=== PATIENT | female | born 1990 | race Native Hawaiian/Other Pacific Islander ===

== ENCOUNTER 2020-07-02 13:39 | Outpatient (REF) | payer OTHER, SELFPAY ==
--- NOTE | 2020-07-02 13:53 | MR_ITS ---
EXAMINATION: MR BRAIN WITHOUT AND WITH CONTRAST CLINICAL INFORMATION: Elevated prolactin level. Bilateral galactorrhea. Concern for pituitary adenoma. COMPARISON: None available. TECHNIQUE: MRI of the brain was obtained using routine sequences without and with contrast following the administration of 4 mL of Gadavist intravenous contrast. FINDINGS: No focal restricted diffusion is demonstrated to suggest acute or subacute cerebral ischemia. Nonspecific curvilinear region of T2 FLAIR hyperintensity lateral to the occipital horn of the left lateral ventricle. Few additional punctate foci of T2 FLAIR hyperintensity in the left greater than right frontal lobes lobes. The ventricles are normal in morphology and size. No abnormal mass effect. No midline shift. There is a T2 hyperintense and T1 hypointense lesion that extends the pituitary parenchyma in the left aspect of the sella turcica, measuring 1 x 0.8 x 0.8 cm. There suggestion of the thin peripheral rim of enhancement surrounding this lesion. No internal enhancement demonstrated. The lesion abuts less than 50% of the medial wall of the cavernous segment and undersurface of the supraclinoid segment of the left ICA. No change in ICA caliber are demonstrated. No evidence of direct cavernous sinus invasion. The remaining pituitary parenchyma demonstrates normal signal characteristics. Normal posterior pituitary bright spot. The pituitary infundibulum is normal in morphology and minimally deviated to the right. The suprasellar cistern largely remains largely patent at this time. No mass effect on the optic chiasm. No abnormalities of the posterior fossa with normal appearance of the brainstem and cerebellum. The cerebellar tonsils are normally positioned. Normal arterial and venous vascular flow voids are present. No abnormal contrast enhancement. Normal, homogeneous marrow signal. Nonspecific retropharyngeal lymph nodes, measuring up to 1.3 x 0.8 cm on the right. Moderate mucosal thickening of the paranasal sinuses. No signal abnormalities within the mastoids. IMPRESSION: 1. There is a 1 cm cystic lesion within the left aspect of the pituitary fossa. Apparent thin peripheral rim of enhancement without nodular enhancing focus. Given the patient's history, a cystic macroadenoma is a leading consideration. 2. Nonspecific, nonenhancing T2 FLAIR hyperintensity along the lateral margin of the temporal horn of the left lateral ventricle. Otherwise, minimal additional white matter changes. Close attention on follow-up exams is recommended. 3. Moderate mucosal sinonasal disease. Nonspecific mildly prominent retropharyngeal lymph nodes.
== END 2020-07-02 13:40 | disposition home or self-care (01) ==
LOC: HO.MRI 13:39
PROVIDERS: Visit Provider Internal Medicine
DX: E22.1 Hyperprolactinemia (principal)
CPT/HCPCS: 70553

== ENCOUNTER → 2020-12-09 09:22 | Outpatient (BNVA) | payer OTHER, SELFPAY | PROVIDERS: PCP Physician Assistant; Referring Provider Internal Medicine; Visit Provider Internal Medicine Endocrinology, Diabetes & Metabolism | DX: D35.2 Benign neoplasm of pituitary gland (principal); E22.1 Hyperprolactinemia | CPT/HCPCS: 99202 ==

== ENCOUNTER 2020-12-10 07:56 | Outpatient (REF) | payer OTHER, SELFPAY ==
[2020-12-10 08:58] LABS: Anion Gap 12 (12-20); Blood Urea Nitrogen 12 mg/dL (9-16); Carbon Dioxide 26 mmol/L (22-29); Chloride 104 mmol/L (96-108); Estimated Glomerular Filt Rate > 60; Glucose Fasting 81 mg/dL (60-99); Potassium 4.2 mmol/L (3.3-5.1); Sodium 138 mmol/L (135-145)
[2020-12-10 09:19] LABS: Free T4 (Free Thyroxine) 0.86 ng/dL (0.71-1.85); Thyroid Stimulating Hormone 1.33 uIU/mL (0.32-4.0)
[2020-12-11 05:17] LABS: Triiodothyronine T3 Total 101 ng/dL (76-181)
[2020-12-11 08:57] LABS: Sex Hormone Binding Globulin 42 nmol/L (17-124)
[2020-12-11 12:57] LABS: Follicle Stimulating Hormone 7.4 mIU/mL; Prolactin Undiluted 36.2 ng/mL
[2020-12-11 17:01] LABS: Adrenocorticotropic Hormone 14 pg/mL (6-50)
[2020-12-13 16:51] LABS: IGF-1 (Somatomedin C) 164 ng/mL (63-373); IGF-1 Z Score (Female) 0.1 SD (-2.0 - +2.0)
[2020-12-17 17:06] LABS: Estradiol Free 0.83 pg/mL; Estradiol, Ultrasensitive 43 pg/mL
== END 2020-12-10 07:57 | disposition home or self-care (01) ==
LOC: HO.LAB 07:56
PROVIDERS: PCP Physician Assistant; Visit Provider Internal Medicine Endocrinology, Diabetes & Metabolism
DX: D35.2 Benign neoplasm of pituitary gland (principal)
CPT/HCPCS: 36415; 80048; 82024; 82533; 82670; 82681; 83001; 83002; 84146; 84270; 84305; 84439; 84443; 84480

== ENCOUNTER → 2020-12-21 12:19 | Outpatient (BNVA) | payer OTHER, SELFPAY | PROVIDERS: PCP Physician Assistant; Visit Provider Internal Medicine | DX: D35.2 Benign neoplasm of pituitary gland (principal); O90.3 Peripartum cardiomyopathy; I47.1 Supraventricular tachycardia | CPT/HCPCS: 93005; 99202 ==

== ENCOUNTER 2020-12-29 07:58 | Outpatient (REF) | payer OTHER, SELFPAY ==
[2020-12-30 09:31] LABS: DHEA Sulfate 297 mcg/dL (18-391)
[2020-12-31 15:37] LABS: Adrenocorticotropic Hormone 17 pg/mL (6-50)
== END 2020-12-29 07:59 | disposition home or self-care (01) ==
LOC: HO.LAB 07:58
PROVIDERS: PCP Physician Assistant; Visit Provider Internal Medicine Endocrinology, Diabetes & Metabolism
DX: D35.2 Benign neoplasm of pituitary gland (principal)
CPT/HCPCS: 36415; 82024; 82533; 82627

== ENCOUNTER → 2021-01-29 08:26 | Outpatient (REF) | payer OTHER, SELFPAY ==
--- NOTE | 2021-01-29 08:29 | CA_ITS ---
Transthoracic Echocardiogram Patient (Last, First, Middle): Annika Merlos, Gender: Female Date of : 1990 Age: 30 Procedure Date: 01/29/2021 Procedure Type: Transthoracic Echocardiogram Location: OP Height: 160.02 cm Weight: 74.84 kg BSA: 1.78 m2 Heart Rate: bpm BP: 116 / 78 mmHg Band Manager: Rafaela MD: Mayco Santos MD Cut Off Man: Manuel Cotton MD Symptoms: D35.2 - Benign neoplasm of pituitary gland Study Quality: Fair ECG Rhythm: Sinus Conclusions: - Essentially normal study Findings Left Ventricle Normal left ventricular size, thickness, and systolic function. The visually estimated ejection fraction is between 65-70%. Diastolic function is normal for age. peak LV global endocardial strain at -18.4% which is within normal limits Right Ventricle Normal right ventricular cavity size and systolic function. Atria Both atria are normal in size. There is no evidence of interatrial shunt. Aortic Valve The aortic valve structure and function is likely normal. There is no aortic valve stenosis. There is no aortic valve regurgitation. Mitral Valve Normal mitral valve structure and function. There is no mitral valve regurgitation. There is no mitral valve stenosis. Pulmonic Valve The pulmonic valve is likely normal. Tricuspid Valve There is trace tricuspid valve regurgitation. The right ventricular systolic pressure is normal. The right ventricular systolic pressure is 24 mmHg. Normal right atrial pressure. There is no evidence of pulmonary hypertension. Great Vessels All visible segments of the aorta are normal in size. The pulmonary artery was not well visualized. Venous The inferior vena cava is normal in size and collapses greater than 50% with inspiration. Pericardium/Pleural There is no evidence of pericardial effusion. Prior Study Comparison No change compared to prior study dated: 08/23/2017. Measurements 2D Linear Measurements RVIDd: 3.00 RVIDd Index: 1.69 IVSd: 0.77 0.6-0.9/0.6-1.0 cm LVIDd: 4.89 3.9-5.3/4.2-5.9 cm LVIDd Index: 2.75 2.4-3.2/2.2-3.1 cm/m2 LVIDs: 3.35 2.0-3.6 cm LVPWd: 0.95 0.7-1.1 cm Ao Root: 2.70 2.1-3.5 cm LA Diam: 3.70 2.7-3.8/3.0-4.0 cm LAIDs Index: 2.08 1.5-2.3 cm/m2 LV Mass: 179.43 67-162/88-224 g LV Mass Index: 100.80 43-95/49-115 g/m2 LVOT Diam: 2.10 3.0+(-)1.3 cm 2D Systolic Function EF 4C: 70.00 >55% EF 2C: 65.90 >55% EF BiP: 68.10 >55% Mitral Valve MV Pk E: 0.90 MV PK A: 0.33 MV Decel Time: 158.00 E/A: 2.70 E'Lateral: 14.80 E'Medial: 9.38 E/E' Med: 9.60 E/E' Lat: 6.10 Aortic Valve AoV Pk Basilio: 1.38 AoV Mn Basilio: 0.82 AoV VTI: 0.25 AoV Pk Grad: 8.00 Aov Mn Grad: 3.00 MAXIMILIAN Cont.VTI: 2.41 LVOT LVOT Pk Basilio: 0.92 LVOT Mn Basilio: 0.63 LVOT VTI: 0.17 LVOT Pk Grad: 3.00 LVOT Mn Grad: 2.00 LVOT Diam: 2.10 LVOT Area: 3.46 Diastolic Function MV Pk E: 0.90 MV Pk A: 0.33 E/A: 2.70 E'Medial: 9.38 E/E' Med: 9.60 E' Laterial: 14.80 E/E' Lat: 6.10 Tricuspid Valve TR Pk Basilio: 2.31 TR Pk Grad: 21.00 RA Press: 3.00 RVSP: 24.00 Great Vessels Aorta Ao Root-2D: 2.70 2.0-3.7 cm Ao Asc: 2.60 2.1-3.4 cm Ao Arch: 2.40 Updated in Other Vendor System with Status of Final Manuel Cotton MD electronically signed on 01/29/2021 4:09:25 PM with status of Final
== END ==
LOC: HO.CARD 08:26
PROVIDERS: Visit Provider Internal Medicine
DX: D35.2 Benign neoplasm of pituitary gland (principal)
CPT/HCPCS: 93306; 93356

== ENCOUNTER → 2021-03-10 09:01 | Outpatient (BNVA) | payer OTHER, SELFPAY | PROVIDERS: PCP Physician Assistant; Visit Provider Internal Medicine Endocrinology, Diabetes & Metabolism ==

== ENCOUNTER 2021-03-11 07:41 | Outpatient (REF) | payer OTHER, SELFPAY ==
[2021-03-11 08:42] LABS: HCG Quantitative < 2 mIU/mL
[2021-03-12 04:57] LABS: Prolactin 25.2 ng/mL
[2021-03-12 17:07] LABS: Adrenocorticotropic Hormone 13 pg/mL (6-50)
== END 2021-03-11 07:42 | disposition home or self-care (01) ==
LOC: HO.LAB 07:41
PROVIDERS: PCP Physician Assistant; Visit Provider Internal Medicine Endocrinology, Diabetes & Metabolism
DX: E22.1 Hyperprolactinemia (principal)
CPT/HCPCS: 36415; 82024; 82533; 84146; 84702

== ENCOUNTER → 2021-03-15 14:50 | Outpatient (BNVA) | payer OTHER, SELFPAY | PROVIDERS: Visit Provider Advanced Practice Midwife | DX: D35.2 Benign neoplasm of pituitary gland (principal); E22.1 Hyperprolactinemia; O90.3 Peripartum cardiomyopathy; Z98.51 Tubal ligation status; Z88.8 Allergy status to other drugs, medicaments and biological substances; Z79.899 Other long term (current) drug therapy | CPT/HCPCS: 81025; 99212 ==

== ENCOUNTER → 2021-03-29 13:34 | Outpatient (BNVA) | payer OTHER, SELFPAY | PROVIDERS: PCP Physician Assistant; Visit Provider Advanced Practice Midwife | DX: D35.2 Benign neoplasm of pituitary gland (principal); E22.1 Hyperprolactinemia; E23.0 Hypopituitarism | CPT/HCPCS: 99212 ==

== ENCOUNTER 2021-04-13 12:48 | Outpatient (REF) | payer OTHER, SELFPAY ==
--- NOTE | ~2021-04-13 | US_ITS ---
EXAMINATION: PELVIC ULTRASOUND CLINICAL INFORMATION: Pain COMPARISON: None TECHNIQUE: Transabdominal and transvaginal pelvic ultrasound was performed. Transvaginal exam was performed for better visualization of the uterus and ovaries. FINDINGS: The uterus is retroverted and measures 7.9 x 4.1 x 4.5 cm. No focal uterine lesion is seen. Endometrial thickness is normal measuring 0.6 cm. There are small nabothian cysts in the cervix. The ovaries are normal-appearing. The right ovary measures 4.8 x 2.1 x 2.4 cm. The left ovary measures 3 x 2.5 x 3.1 cm. There is a small amount of fluid in the pelvis. US/US pelvic and transvaginal IMPRESSION: Unremarkable exam.
== END 2021-04-13 12:49 | disposition home or self-care (01) ==
LOC: HO.HMGCX 12:48
PROVIDERS: PCP Physician Assistant; Visit Provider Advanced Practice Midwife
DX: R10.2 Pelvic and perineal pain (principal); E23.0 Hypopituitarism; E22.1 Hyperprolactinemia; D35.2 Benign neoplasm of pituitary gland
CPT/HCPCS: 76830; 76856

== ENCOUNTER 2021-04-19 08:28 | Outpatient (REF) | payer OTHER, SELFPAY ==
[2021-04-19 11:29] LABS: Glucose Urine UA NEG (NEG); Leukocyte Esterase Urine NEG (NEG); Nitrite Urine NEG (NEG); PH 6.5 (5.0-8.0); Urine Blood 2+ (NEG); Urine Ketones NEG (NEG); Urine Protein NEG (NEG-TRACE)
[2021-04-19 11:38] LABS: Appearance Urine CLEAR; Color Urine YELLOW
[2021-04-19 12:54] LABS: WBC Urine 0 /HPF (0-4)
[2021-04-19 12:56] LABS: Squamous Epithelial Cell Urine 1+ /LPF
[2021-04-19 13:45] LABS: CT PCR NOT DETECTED (Not Detect.); NG PCR NOT DETECTED (Not Detect.)
[2021-04-20 08:33] LABS: BV Int Neg Control Negative (Negative); BV Int Pos Control Positive (Positive)
== END 2021-04-19 08:29 | disposition home or self-care (01) ==
LOC: HO.LAB 08:28
PROVIDERS: Visit Provider Advanced Practice Midwife
DX: Z11.3 Encounter for screening for infections with a predominantly sexual mode of transmission (principal); R10.2 Pelvic and perineal pain
CPT/HCPCS: 81001; 87086; 87480; 87491; 87510; 87591; 87660; 99212

== ENCOUNTER 2021-05-04 08:13 | Outpatient (REF) | payer OTHER, SELFPAY ==
[2021-05-04 10:36] LABS: Glucose Urine UA NEG (NEG); Leukocyte Esterase Urine NEG (NEG); Nitrite Urine NEG (NEG); Specific Gravity - Urine >= 1.030 (1.005-1.025); Urine Blood NEG (NEG); Urine Ketones NEG (NEG); Urine Protein TRACE MG/DL (NEG-TRACE)
[2021-05-04 10:44] LABS: Appearance Urine HAZY; Color Urine YELLOW
[2021-05-04 11:15] LABS: Squamous Epithelial Cell Urine TRACE /LPF; WBC Urine 0 /HPF (0-4)
[2021-05-06 02:35] LABS: Prolactin 24.1 ng/mL
== END 2021-05-04 08:14 | disposition home or self-care (01) ==
LOC: HO.LAB 08:13
PROVIDERS: Advanced Practice Midwife; PCP Physician Assistant; Visit Provider Internal Medicine Endocrinology, Diabetes & Metabolism
DX: R10.2 Pelvic and perineal pain (principal); D35.2 Benign neoplasm of pituitary gland; E22.1 Hyperprolactinemia
CPT/HCPCS: 36415; 81001; 84146

== ENCOUNTER → 2021-07-07 08:50 | Outpatient (BNVA) | payer OTHER, SELFPAY | PROVIDERS: PCP Physician Assistant; Visit Provider Internal Medicine | DX: E22.1 Hyperprolactinemia (principal); E04.9 Nontoxic goiter, unspecified; N91.2 Amenorrhea, unspecified; D35.2 Benign neoplasm of pituitary gland | CPT/HCPCS: 99212 ==

== ENCOUNTER 2021-07-08 07:12 | Outpatient (REF) | payer OTHER, SELFPAY ==
[2021-07-08 07:59] LABS: Glucose Fasting 84 mg/dL (60-99)
[2021-07-08 08:05] LABS: Alanine Aminotransferase 16 U/L (0-31); Albumin Level 4.1 g/dL (3.5-5.0); Alkaline Phosphatase 80 U/L (39-117); Anion Gap 11 (12-20); Aspartate Amino Transferase 18 U/L (5-31); Bilirubin Total 1.1 mg/dL (0.0-1.0); Blood Urea Nitrogen 10 mg/dL (9-16); Carbon Dioxide 26 mmol/L (22-29); Chloride 106 mmol/L (96-108); Cholesterol 128 mg/dL; Estimated Glomerular Filt Rate > 60; Glucose Random 86 mg/dL (60-115); HDL Cholesterol 45 mg/dL; LDL Cholesterol Calculated 69 mg/dl; Potassium 3.7 mmol/L (3.3-5.1); Sodium 139 mmol/L (135-145); Total Protein 6.9 g/dL (6.5-8.0); Triglycerides 70 mg/dL
[2021-07-08 08:13] LABS: Osmolality, Serum 291 mosm/kg (281-305)
[2021-07-08 08:16] LABS: Estimated Average Glucose 91 mg/dL; Hemoglobin A1c % 4.8 %
[2021-07-08 08:26] LABS: Free T4 (Free Thyroxine) 1.02 ng/dL (0.71-1.85); HCG Quantitative < 2 mIU/mL; Thyroid Stimulating Hormone 1.73 uIU/mL (0.32-4.0)
[2021-07-08 08:54] LABS: Cortisol Random 13.9 ug/dL
[2021-07-08 11:27] LABS: Glucose 2 Hour 70 mg/dL
[2021-07-08 11:33] LABS: Glucose 1 Hour 55 mg/dL
[2021-07-10 07:31] LABS: LDL Cholesterol Direct 72 mg/dL (<100)
[2021-07-10 10:31] LABS: DHEA Sulfate 226 mcg/dL (18-391); Sex Hormone Binding Globulin 32 nmol/L (17-124)
[2021-07-11 08:11] LABS: Triiodothyronine T3 Total 128 ng/dL (76-181)
[2021-07-12 12:06] LABS: Testosterone, Total 36 ng/dL (2-45)
[2021-07-12 15:37] LABS: IGF-1 (Somatomedin C) 164 ng/mL (63-373); IGF-1 Z Score (Female) 0.1 SD (-2.0 - +2.0)
[2021-07-12 22:27] LABS: Follicle Stimulating Hormone 7.4 mIU/mL; Lutenizing Hormone 6.9 mIU/mL; Prolactin Undiluted 21.8 ng/mL
[2021-07-14 17:02] LABS: Adrenocorticotropic Hormone 43 pg/mL (6-50)
[2021-07-14 19:02] LABS: Androstenedione 195 ng/dL
[2021-07-24 03:22] LABS: Estradiol Free 1.02 pg/mL; Estradiol, Ultrasensitive 45 pg/mL
== END 2021-07-08 07:13 | disposition home or self-care (01) ==
LOC: HO.LAB 07:12
PROVIDERS: PCP Physician Assistant; Visit Provider Internal Medicine
DX: D35.2 Benign neoplasm of pituitary gland (principal); N91.2 Amenorrhea, unspecified
CPT/HCPCS: 36415; 80053; 80061; 82024; 82157; 82533; 82627; 82670; 82681; 83001; 83002; 83036; 83498; 83721; 83930; 84146; 84270; 84305; 84402; 84403; 84439; 84443; 84480; 84702

== ENCOUNTER 2021-07-14 13:37 | Outpatient (REF) | payer OTHER, SELFPAY ==
--- NOTE | ~2021-07-14 | MR_ITS ---
EXAMINATION: MR BRAIN WITHOUT AND WITH CONTRAST CLINICAL INFORMATION: 30-year-old undergoing follow up for pituitary lesion. COMPARISON: 07/02/2020 MRI. TECHNIQUE: Multiplanar, multisequence MRI of the brain/sella was obtained before and after the intravenous administration of 4 mL Gadavist. FINDINGS: Again noted is a cystic-appearing lesion on the left side of the pituitary gland, with a maximum height of 0.8 cm and maximum sagittal length of 1.0 cm, unchanged in appearance, with maximum cross-sectional diameter in the transverse plane of 0.7 cm, which appears slightly smaller in this dimension. The lesion is again noted to be T2 hyperintense and T1 hypointense surrounded by peripheral enhancement and normal enhancing pituitary tissue. There is slight suprasellar extension on the left without chiasmatic impingement. Remainder of the gland enhances homogenously and normally. The pituitary infundibulum enhances normally and appears normal in thickness stable in appearance. Cavernous sinuses appear unchanged with normal signal voids in the adjacent ICAs. The and lateral border of the lesion again abuts the medial border of the adjacent cavernous ICA without cavernous sinus invasion. No focal reduced diffusion is seen to suggest acute or subacute cerebral ischemia. The previously noted curvilinear band-like zone of periventricular T2 hyperintensity in the left temporal lobe is stable with no abnormal enhancement identified. The remainder of the brain is normal in morphology and signal intensity with no abnormal enhancement, mass lesion, space-occupying process or mass effect. The ventricular system and subarachnoid spaces are within normal limits without hydrocephalus, stable in appearance. Signal voids are noted in the visualized major intracranial vessels.. There is some retained secretions in the right petrous apex stable in appearance. Osseous structures appear within normal limits. Previously noted retropharyngeal lymph nodes appears smaller on current study and there has been a decrease in size of the adenoids since the previous exam. MR/MR head/brain wo/w con IMPRESSION: 1. 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 2. Stable appearance to the previously identified nonspecific nonenhancing T2/FLAIR signal hyperintensity zone adjacent to the left temporal horn of indeterminate significance. 3. No acute intracranial process. 4. Diminished size of retropharyngeal lymph nodes and adenoids since the previous study with improvement in mucosal thickening in the ethmoid complex.
== END 2021-07-14 13:38 | disposition home or self-care (01) ==
LOC: HO.MRI 13:37
PROVIDERS: PCP Physician Assistant; Visit Provider Internal Medicine
DX: D35.2 Benign neoplasm of pituitary gland (principal)
CPT/HCPCS: 70553; A9585

== ENCOUNTER 2021-08-03 10:26 | Outpatient (REF) | payer OTHER, SELFPAY ==
--- NOTE | ~2021-08-03 | US_ITS ---
EXAMINATION: US THYROID CLINICAL INFORMATION: Nontoxic goiter, unspecified. COMPARISON: None TECHNIQUE: Linear transducer choudhury-scale and color Doppler examination with attention to the region of the thyroid. FINDINGS: SIZE: Measurements of the thyroid lobes and nodules are given in sagittal, anteroposterior and transverse dimensions respectively. Right Thyroid Lobe: 4.7 x 1.6 x 1.5 cm, volume 5.8 mL. Parenchyma: The gland echotexture is homogeneous. Thyroid vascularity is normal. Left Thyroid Lobe: 3.9 x 0.8 x 1.3 cm, volume 2.2 mL. Parenchyma: The gland echotexture is homogeneous. Thyroid vascularity is normal. Isthmus: 0.3 cm in maximum AP dimension. Estimated total number of nodules greater than or equal to 1 cm: 0. Contract Administrative Assistant nodules are described as follows: 1. Location: Right lower pole. Size: 0.3 x 0.2 x 0.3 cm, volume 0.01 mL. Nodule characteristics: Composition: Solid/almost completely solid (2). Echogenicity: Hypoechoic (2). Shape: Not taller than wide (0). Margins: Smooth (0). Echogenic Foci: None (0). ACR TI-RADS total points: 4 ACR TI-RADS category: 4 There are 2 colloid cysts in the left thyroid lobe, not measured. NODES: No lymphadenopathy is seen in the tissue surrounding the thyroid gland. US/US thyroid IMPRESSION: Nonsuspicious subcentimeter nodule right lobe. There are 2 colloid cysts in the left thyroid lobe. ACR TI-RADS RECOMMENDATION REFERENCE: Ultrasound-guided fine-needle aspiration, followup ultrasound, no further follow up. * TR1 (0 point) and TR 2 (2 points): No FNA or follow up * TR3 (3 points): FNA if more than or equal to 2.5 cm in maximum dimension, followup ultrasound in 1, 3 and 5 years if 1.5 to 2.4 cm in maximum dimension. * TR4 (4-6 points): FNA if more than or equal to 1.5 cm in maximum dimension, followup ultrasound in 1, 2, 3 and 5 years if 1 to 1.4 cm in maximum dimension. * TR5 (more than or equal to 7 points): FNA if more than or equal to 1 cm in maximum dimension, followup ultrasound every year for 5 years if 0.5 to 0.9 cm in maximum dimension. * TR3, TR4 or TR5 nodules that are below the size threshold for follow up receive no follow up.
== END 2021-08-03 10:27 | disposition home or self-care (01) ==
LOC: HO.US 10:26
PROVIDERS: PCP Physician Assistant; Visit Provider Internal Medicine
DX: E04.9 Nontoxic goiter, unspecified (principal)
CPT/HCPCS: 76536

== ENCOUNTER → 2021-08-19 09:30 | Outpatient (BNVA) | payer OTHER, SELFPAY | PROVIDERS: PCP Physician Assistant; Visit Provider Internal Medicine ==

== ENCOUNTER → 2021-08-23 08:37 | Outpatient (BNVA) | payer OTHER, SELFPAY | PROVIDERS: PCP Physician Assistant; Visit Provider Internal Medicine ==

== ENCOUNTER 2022-01-06 07:35 | Outpatient (REF) | payer OTHER, SELFPAY ==
[2022-01-06 09:18] LABS: Anion Gap 11 (12-20); Blood Urea Nitrogen 10 mg/dL (9-16); Calcium 9.2 mg/dL (8.4-10.2); Carbon Dioxide 24 mmol/L (22-29); Chloride 104 mmol/L (96-108); Estimated Glomerular Filt Rate > 60; Glucose Random 84 mg/dL (60-115); Potassium 4.2 mmol/L (3.3-5.1); Sodium 135 mmol/L (135-145)
[2022-01-06 09:27] LABS: Osmolality, Serum 281 mosm/kg (281-305)
[2022-01-06 09:28] LABS: Free T4 (Free Thyroxine) 0.85 ng/dL (0.71-1.85); Thyroid Stimulating Hormone 1.41 uIU/mL (0.32-4.0)
[2022-01-06 11:06] LABS: Cortisol Random 16.7 ug/dL
[2022-01-07 19:52] LABS: Adrenocorticotropic Hormone 22 pg/mL (6-50)
[2022-01-08 06:57] LABS: Triiodothyronine T3 Total 145 ng/dL (76-181)
[2022-01-08 08:07] LABS: Sex Hormone Binding Globulin 79 nmol/L (17-124)
[2022-01-08 10:57] LABS: Follicle Stimulating Hormone 4.1 mIU/mL; Lutenizing Hormone 6.3 mIU/mL; Prolactin 45.8 ng/mL
[2022-01-13 13:46] LABS: IGF-1 (Somatomedin C) 109 ng/mL (53-331); IGF-1 Z Score (Female) -0.7 SD (-2.0 - +2.0)
[2022-01-15 04:07] LABS: Estradiol, Ultrasensitive 12 pg/mL
== END 2022-01-06 07:36 | disposition home or self-care (01) ==
LOC: HO.LAB 07:35
PROVIDERS: PCP Physician Assistant; Visit Provider Internal Medicine
DX: D35.2 Benign neoplasm of pituitary gland (principal)
CPT/HCPCS: 36415; 80048; 82024; 82533; 82670; 82681; 83001; 83002; 83930; 84146; 84270; 84305; 84439; 84443; 84480

== ENCOUNTER → 2022-01-10 08:31 | Outpatient (BNVA) | payer OTHER, SELFPAY | PROVIDERS: PCP Physician Assistant; Visit Provider Internal Medicine | DX: Z13.89 Encounter for screening for other disorder (principal) ==

== ENCOUNTER 2022-01-26 13:32 | Outpatient (REF) | payer OTHER, SELFPAY ==
--- NOTE | ~2022-01-26 | MR_ITS ---
EXAMINATION: MR BRAIN WITHOUT AND WITH CONTRAST CLINICAL INFORMATION: 31-year-old with pituitary lesion. Follow-up study. COMPARISON: 07/14/2021 MRI. TECHNIQUE: Multiplanar, multisequence MRI of the brain/sella was obtained before and after the intravenous administration of 4 mL Gadavist. FINDINGS: Redemonstrated is the previously noted cystic lesion on the left side of the pituitary gland. On the current study, this measures 0.8 cm maximum height, stable from previous study. Maximum AP dimension is 1 cm unchanged with maximum transverse dimension in the coronal plane of 0.6 cm compared to 0.7 on the previous exam. This protrudes into the left side of the suprasellar cistern with no impingement on the adjacent optic chiasm. The remainder of the pituitary gland enhances homogenously. The infundibulum is stable in appearance and enhances normally, in the midline. No cavernous sinus invasion. Normal signal voids in the adjacent carotid siphons. There are multiple non-enlarged intraparotid lymph nodes stable in appearance bilaterally. Multiple bilateral submandibular space lymph nodes are seen bilaterally which are stable. No focal reduced diffusion is seen to suggest acute or subacute cerebral ischemia focal curvilinear band-like T1 hypo-/T2 signal hyperintensity in the deep left periventricular temporal lobe white matter is again noted with no abnormal enhancement, stable in appearance. Remainder of the brain is normal in morphology and signal intensity. No other mass lesions are identified and there is no abnormal brain parenchymal or leptomeningeal enhancement. No extra-axial fluid collections, space-occupying process or mass effect. The ventricular system and subarachnoid spaces are within normal limits without hydrocephalus. Normal signal voids are seen in the visualized major intracranial vessels. Stable retained secretions in the right petrous apex. Osseous marrow signal intensity is within normal limits. MR/MR head/brain wo/w con IMPRESSION: 1. Essentially, stable cystic pituitary lesion on the left, as described above. 2. Stable, nonenhancing, nonspecific zone of white matter T2 hyperintensity in the left temporal lobe. 3. No acute intracranial process.
== END 2022-01-26 13:33 | disposition home or self-care (01) ==
LOC: HO.MRI 13:32
PROVIDERS: Visit Provider Physician Assistant
DX: D35.2 Benign neoplasm of pituitary gland (principal); G93.9 Disorder of brain, unspecified
CPT/HCPCS: 70553; A9585

== ENCOUNTER → 2022-02-22 09:25 | Outpatient (BNVA) | payer OTHER, SELFPAY | PROVIDERS: PCP Physician Assistant; Visit Provider Internal Medicine | DX: Z13.89 Encounter for screening for other disorder (principal) ==

== ENCOUNTER 2022-05-17 14:37 | Outpatient (REF) | payer OTHER, SELFPAY ==
[2022-05-17 15:17] LABS: Hematocrit 39.9 % (37.0-47.0); Hemoglobin 13.6 g/dl (12.0-16.0); Mean Corpuscular HGB Conc 34.1 g/dl (31.0-35.0); Mean Corpuscular Hemoglobin 30.8 pg (27.0-33.0); Mean Corpuscular Volume 90.3 fL (80.0-98.0); Mean Platelet Volume 10.2 fL (9.4-12.3); Platelet Count 314 X10*3/uL (160-400); Red Blood Count 4.42 X10*6/uL (4.20-5.50); Red Cell Distribution Width 12.6 % (11.0-16.0); White Blood Count 9.2 X10*3/uL (4.8-10.8)
[2022-05-17 15:37] LABS: Iron 85 mcg/dL (30-160); Percent Iron Saturation 25 % (15-50); Total Iron Binding Capacity 337 mcg/dL (228-428); Unsaturated Iron Binding 252 ug/dL
[2022-05-17 15:57] LABS: Vitamin D 25-OH Total 32.7 ng/mL (>30)
== END 2022-05-17 14:38 | disposition home or self-care (01) ==
LOC: HO.LAB 14:37
PROVIDERS: PCP Physician Assistant; Visit Provider Physician Assistant
DX: D50.9 Iron deficiency anemia, unspecified (principal); R53.83 Other fatigue
CPT/HCPCS: 36415; 82306; 83540; 85027

== ENCOUNTER 2022-08-23 07:38 | Outpatient (REF) | payer OTHER, SELFPAY ==
[2022-08-23 08:52] LABS: Osmolality, Serum 287 mosm/kg (281-305)
[2022-08-23 08:53] LABS: Anion Gap 10 (12-20); Blood Urea Nitrogen 9 mg/dL (9-16); Calcium 9.2 mg/dL (8.4-10.2); Carbon Dioxide 26 mmol/L (22-29); Chloride 107 mmol/L (96-108); Estimated Glomerular Filt Rate > 60; Free T4 (Free Thyroxine) 0.92 ng/dL (0.71-1.85); Glucose Random 89 mg/dL (60-115); Sodium 139 mmol/L (135-145); Thyroid Stimulating Hormone 1.86 uIU/mL (0.32-4.0)
[2022-08-24 14:48] LABS: Adrenocorticotropic Hormone 26 pg/mL (6-50)
[2022-08-28 04:59] LABS: Estradiol Ultra Sensitive 15 pg/mL
[2022-09-01 12:58] LABS: IGF-1 (Somatomedin C) 123 ng/mL (53-331); IGF-1 Z Score (Female) -0.5 SD (-2.0 - +2.0)
== END 2022-08-23 07:39 | disposition home or self-care (01) ==
LOC: HO.LAB 07:38
PROVIDERS: PCP Physician Assistant; Visit Provider Internal Medicine
DX: D35.2 Benign neoplasm of pituitary gland (principal)
CPT/HCPCS: 36415; 80048; 82024; 82533; 82670; 83001; 83002; 83930; 84146; 84305; 84402; 84403; 84439; 84443; 84480

== ENCOUNTER 2022-08-25 13:32 | Outpatient (REF) | payer OTHER, SELFPAY ==
[2022-09-02 14:39] LABS: Saliva Cortisol 0.09 mcg/dL
== END 2022-08-25 13:33 | disposition home or self-care (01) ==
LOC: HO.LNP 13:32
PROVIDERS: Visit Provider Internal Medicine
DX: D35.2 Benign neoplasm of pituitary gland (principal)
CPT/HCPCS: 82530

== ENCOUNTER 2022-09-15 08:00 | Outpatient (REF) | payer OTHER, SELFPAY ==
[2022-09-15 08:49] LABS: Cortisol Random 20.3 ug/dL
[2022-09-15 09:40] LABS: Osmolality, Serum 287 mosm/kg (281-305)
[2022-09-15 10:50] LABS: Anion Gap 11 (12-20); Blood Urea Nitrogen 11 mg/dL (9-16); Calcium 8.8 mg/dL (8.4-10.2); Carbon Dioxide 26 mmol/L (22-29); Chloride 104 mmol/L (96-108); Estimated Glomerular Filt Rate > 60; Glucose Random 89 mg/dL (60-115); Potassium 3.5 mmol/L (3.3-5.1); Sodium 137 mmol/L (135-145); Thyroid Stimulating Hormone 2.26 uIU/mL (0.32-4.0)
[2022-09-15 11:33] LABS: Free T4 (Free Thyroxine) 0.87 ng/dL (0.71-1.85)
[2022-09-16 10:19] LABS: Adrenocorticotropic Hormone 47 pg/mL (6-50)
[2022-09-17 08:57] LABS: Triiodothyronine T3 Total 159 ng/dL (76-181)
[2022-09-18 05:38] LABS: Sex Hormone Binding Globulin 76 nmol/L (17-124)
[2022-09-20 17:34] LABS: Follicle Stimulating Hormone 4.5 mIU/mL; Lutenizing Hormone 5.9 mIU/mL; Prolactin Undiluted 46.9 ng/mL
[2022-09-21 13:48] LABS: IGF-1 (Somatomedin C) 103 ng/mL (53-331); IGF-1 Z Score (Female) -0.9 SD (-2.0 - +2.0)
[2022-09-21 22:29] LABS: Estradiol Ultra Sensitive 11 pg/mL
== END 2022-09-15 08:01 | disposition home or self-care (01) ==
LOC: HO.LAB 08:00
PROVIDERS: PCP Physician Assistant; Visit Provider Internal Medicine
DX: D35.2 Benign neoplasm of pituitary gland (principal)
CPT/HCPCS: 36415; 80048; 82024; 82533; 82670; 83001; 83002; 83930; 84146; 84270; 84305; 84439; 84443; 84480

== ENCOUNTER 2023-01-26 16:12 | Outpatient (REF) | payer OTHER, SELFPAY ==
--- NOTE | ~2023-01-26 | MR_ITS ---
EXAMINATION: MR BRAIN WITH AND WITHOUT CONTRAST CLINICAL INFORMATION: Benign neoplasm of the pituitary gland COMPARISON: MRI brain 01/26/2022 TECHNIQUE: MRI of the brain was obtained using routine sequences before and following administration of intravenous contrast. A total of 3.5 mL of Gadavist was administered intravenously. FINDINGS: Slightly decreased size of a T2 hyperintense nonenhancing cystic lesion within the left aspect of the pituitary gland measuring 8 x 6 x 5 mm (AP x TR x CC), previously 8 x 6 x 8 mm. Redemonstrated overlying superior convex margin with projection into the left suprasellar cistern however without effect along the optic nerve apparatus. The infundibulum inserts at the midline. There is no invasion of the right cavernous sinus, demonstrating normal enhancement and symmetric with the contralateral right cavernous sinus. No acute infarct. No extra-axial fluid collection. The ventricles and sulci are normal in size and configuration without significant volume loss or hydrocephalus. Decrease conspicuity of nonspecific ovoid T2 FLAIR hyperintensity within the left temporal periventricular white matter, possibly on a technical basis. No new remote areas of signal abnormality. No abnormal intraparenchymal or leptomeningeal enhancement. No significant mass effect or herniation pattern. The intracranial dural venous sinus and arterial flow voids are preserved. The orbits are grossly unremarkable. Minimal ethmoid air cell mucosal thickening. A couple of opacified left mastoid air cells. Prominence of Waldeyer's ring and partially imaged prominent retropharyngeal lymph nodes, probably reactive. Normal marrow signal. MR/MR head/brain wo/w con IMPRESSION: 1. Slightly decreased size of a presumably cystic adenoma within the left pituitary gland. 2. Decrease conspicuity of nonspecific ovoid T2 FLAIR hyperintensity within the left temporal periventricular white matter, possibly on a technical basis. No new remote areas of parenchymal signal abnormality. No pathologic intracranial enhancement.
== END 2023-01-26 16:13 | disposition home or self-care (01) ==
LOC: HO.MRI 16:12
PROVIDERS: PCP Physician Assistant; Visit Provider Internal Medicine
DX: D35.2 Benign neoplasm of pituitary gland (principal)
CPT/HCPCS: 70553; A9585

== ENCOUNTER 2023-06-28 14:53 | Emergency (ER) | payer OTHER, SELFPAY | END 2023-06-28 17:02 | disposition left against medical advice (07) | PROVIDERS: Emergency Provider Emergency Medicine; PCP Physician Assistant | DX: S99.911A Unspecified injury of right ankle, initial encounter (principal); X58.XXXA Exposure to other specified factors, initial encounter; Y93.9 Activity, unspecified; Y92.9 Unspecified place or not applicable; Y99.9 Unspecified external cause status ==

== ENCOUNTER 2023-07-05 09:04 | Outpatient (AMB) | payer OTHER, SELFPAY ==
--- NOTE | 2023-07-05 09:28 | A.OFFPC_ITS ---
Vital Signs 07/05/23 09:30 Height 5 ft 3 in Weight 182 lb 2 oz BMI 32.3 BP 110/72 Blood Pressure Location Lt brachial Position Sitting Pulse 75 Pulse Source Pulse Oximeter Pulse Oximetry (%) 99 Oxygen Delivery Method Room Air Intake Visit Reasons: Right ankle twist/ referral Intake Note: Patient is here today for right ankle sprain a week ago. Possible clearance for work. 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 per policy Accompanied by: Self / Same As Patient Allergies No Known Allergies [No Known Allergies*] Allergy (Verified 07/05/23 10:01) Medication List - Last Reconciled 07/05/23 by Lex Puente MD norethindrone ac-eth estradiol 1.5-30 mg-mcg (Aurovela) 1 tab PO DAILY Tobacco use date assessed: 07/05/23 Dental Screening Dental Screen Date: 07/05/23 Did you have a dental visit in the last 12 months?: No Did you have a dental problem in the last 6 months where you did not have access to dental care?: No Was dental information given to patient?: Patient has dentist HPI Right ankle twist/ referral HPI Details 32-year-old female presents to [facility] for [facility] sick visit. Patient injured her right ankle last week. She had bruising below the right side of her ankle and will had difficulty walking. She was seen at a walk-in and x-rays were negative. She was referred for further evaluation to an orthopedic surgeon. Patient had not seen her primary care provider in a while and was asked to come here to get the referral. Patient has almost fully recovered. She is able to bear weight with no pain. She needs a note to return to work with no restrictions. [facility] Medical History Abnormal brain MRI Amenorrhea Atrial tachycardia Goiter Hyperprolactinemia Peripartum cardiomyopathy Pituitary adenoma Pituitary macroadenoma Surgical History Hx of myringotomy Hx of tonsillectomy Hx of tubal ligation Family History Father High cholesterol History of hypothyroidism Mother History of hypothyroidism Social History (Reviewed 10/18/23 @ 09:28 by [employer] Household Members: Children Household Members Other:: daughter Housing: Apartment Alcohol intake: current Alcohol intake frequency: holidays/special occasions only Patient Tobacco Use Status: Never used Tobacco Tobacco use type: Cigarette e-Cigarette/Vaping Use: Never Used Second Hand Smoke Exposure: No service: Yes Current occupational status: employed Current occupation: [employer] ( [employer]) Cognitive needs: No Hearing needs: No Vision needs: No Female Reproductive History Menstrual Age of Menarche: 12 Questionnaire PHQ-9 Over the last 2 weeks, how often have you been bothered by any of the following problems? 1. Little interest or pleasure in doing things: not at all 2. Feeling down, depressed, or hopeless: not at all 3. Trouble falling or staying asleep, or sleeping too much: not at all 4. Feeling tired or having little energy: not at all 5. Poor appetite or overeating: not at all 6. Feeling bad about yourself - or that you are a failure or have let yourself or your family down: not at all 7. Trouble concentrating on things, such as reading the newspaper or watching television: not at all 8. Moving or speaking so slowly that other people could have noticed. Or the opposite - being so fidgety or restless that you have been moving around a lot more than usual: not at all 9. Thoughts that you would be better off or of hurting yourself in some way: not at all Total score: 0 Depression Screening Interpretation: Negative Depression Screening Done: Yes Source: Developed by Drs. Rc Townsend, Janell Yeung, Quintin Dye and colleagues, with an educational eric from [employer]. Thrive Questionnaire Date Thrive assessed: 07/05/23 I am a: Patient What is your living situation today?: I have a steady place to live Within the past 12 months, did the food you bought not last and you didn't have the money to get more?: Never true Within the past 12 months, did you worry whether your food would run out before you got money to buy more?: Never true Do you have trouble paying for medicines?: No Do you have trouble getting transportation to medical appointments?: No Do you have trouble paying your heating and electricity bill?: No Do you have trouble taking care of your child, family member or friend?: No Do you have trouble with day-to-day activities such as bathing, preparing meals, shopping, managing finances, etc.?: No Are you currently unemployed and looking for a job?: No Are you interested in more education?: No Currently or been in a relationship where the following occur: no concerns reported AUDIT C Alcohol Use Questionnaire (AUDIT-C) 1. How often do you have a drink containing alcohol?: Monthly or less 2. How many drinks containing alcohol do you have on a typical day when you are drinking?: 1 or 2 Total Score: 1 GRACIELA-7 AMB Questionnaire GRACIELA-7 Date GRACIELA - 7 assessed: 07/05/23 Feeling nervous, anxious, or on edge: 0 = Not at all Not being able to stop or control worryin = Not at all Worrying too much about different things: 0 = Not at all Trouble relaxin = Not at all Being so restless that it is hard to sit still: 0 = Not at all Becoming easily annoyed or irritable: 0 = Not at all Feeling afraid as if something awful might happen: 0 = Not at all Total GRACIELA-7 score (0-4 normal; 5-9 mild; 10-14 moderate; 15-21 severe): 0 Source: Developed by Drs. Rc Townsend, Janell Yeung, Quintin Dye and colleagues, with an educational eric from [employer]. Physical exam (Primary Care) Vital Signs: Last Vital Signs Pulse 75 07/05/23 09:30 BP 110/72 07/05/23 09:30 Pulse Ox 99 07/05/23 09:30 Oxygen Delivery Method Room Air 07/05/23 09:30 BMI result Body Mass Index 32.3 Tobacco/Smoking Status: Tobacco use Status Tobacco use date assessed 07/05/23 07/05/23 09:35 Patient Tobacco Use Status Never used Tobacco 07/05/23 09:35 Tobacco use type Cigarette 07/05/23 09:35 e-Cigarette/Vaping Use Never Used 07/05/23 09:35 PHQ-9: PHQ-9 Score PHQ-9: Total score 0 07/05/23 09:35 Depression Screening Interpretation: Negative Thrive Assessment: Date of Thrive Assessment Date Thrive assessed 07/05/23 07/05/23 09:35 Currently or been in a relationship where the following occur: no concerns reported Extrem Other: Right ankle: Minimal bruising at the base of the ankle. Full range of motion. Assessment and Plan Assessment & Plan (1) Sprain of right ankle: Code(s): S93.401A - Sprain of unspecified ligament of right ankle, initial encounter Plan: Note for patient to return to full duty has been provided. I did not see an orthopedic referral in the medical record. She does not need a referral if it has not been made. Coding Level of Care Code Est Pt Level 3 (27682) Diagnoses Sprain of right ankle S93.401A
[2023-07-05 09:30] VITALS: BP 110/72; PULSE 75; O2SAT 99; BMI 32.3
== END 2023-07-05 10:10 | disposition home or self-care (01) ==
PROVIDERS: PCP Physician Assistant; Visit Provider Internal Medicine
DX: S93.401A Sprain of unspecified ligament of right ankle, initial encounter (principal)
CPT/HCPCS: 99213

== ENCOUNTER 2023-07-10 10:10 | Outpatient (REF) | payer OTHER, SELFPAY ==
--- NOTE | ~2023-07-10 | XR_ITS ---
EXAMINATION: XR ANKLE, RIGHT CLINICAL INFORMATION: Pain. COMPARISON: None available. TECHNIQUE: AP, lateral, and mortise views of the right ankle. FINDINGS: Bony alignment and mineralization are normal. No fracture or dislocation is seen. The ankle mortise is intact. A small posterior ankle joint effusion is suspected. Boehler's angle is normal. There is no calcaneal spur. There is mild soft tissue swelling adjacent to the lateral malleolus. No soft tissue gas or foreign body is seen. XR/XR ankle RT min 3V IMPRESSION: 1. A small right ankle joint effusion is suspected. 2. No fracture or dislocation is seen. 3. There is mild soft tissue swelling adjacent to the lateral malleolus.
== END 2023-07-10 10:11 | disposition home or self-care (01) ==
LOC: HO.HOSX 10:10
PROVIDERS: Visit Provider Physician Assistant
DX: M25.571 Pain in right ankle and joints of right foot (principal)
CPT/HCPCS: 73610; 99202

== ENCOUNTER 2023-07-10 12:56 | Outpatient (AMB) | payer OTHER, SELFPAY ==
--- NOTE | 2023-07-10 13:00 | MHC.OFFVIS ---
Intake Vital Signs 07/10/23 13:05 Height 5 ft 3 in Weight 182 lb BMI 32.2 Intake Visit Reasons: FC- Rt ankle Sprain Intake Note: Annika stone 32 year old female presents today for an evaluation of right ankle, DOI 07/05/23. Patient reports that she missed a step causing her to roll her ankle inward and applied full weight to ankle. She [place] [facility] [place] where she was placed in a walking boot. States discomfort wearing boot therefore discontinued use. Currently her pain fluctuates in intensity, states tightness and burning sensations as well as swelling. Finds relief with elevation, compression, icing and ibuprofen. Allergies No Known Allergies [No Known Allergies*] Allergy (Verified 07/10/23 13:05) HPI FC- Rt ankle Sprain HPI Details 32-year-old female who presents to the office today for right ankle injury s/p missing a step which caused her ankle to roll inward and applied full weight to her ankle, 07/05/23. She was seen at walk-in clinic the same day where she was placed in a walking boot which she discontinued due to experiencing discomfort with use. She states she has pain which fluctuates in intensity as well as tightness, burning sensation and swelling in her ankle. Her pain is aggravated with stair use, stretching and in the mornings. She finds relief with elevation, compression, icing and ibuprofen. She works in [employer]. [facility] Medical History Abnormal brain MRI Amenorrhea Atrial tachycardia Goiter Hyperprolactinemia Peripartum cardiomyopathy Pituitary adenoma Pituitary macroadenoma Surgical History Hx of myringotomy Hx of tonsillectomy Hx of tubal ligation Family History Father High cholesterol History of hypothyroidism Mother History of hypothyroidism Social History (Updated 07/10/23 @ 13:10 by INDRA Ulloa) Household Members: Children Household Members Other:: daughter Housing: Apartment Alcohol intake: current Alcohol intake frequency: holidays/special occasions only Patient Tobacco Use Status: Never used Tobacco Tobacco use type: Cigarette e-Cigarette/Vaping Use: Never Used Second Hand Smoke Exposure: No service: Yes Current occupational status: employed 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[employer]), Cognitive needs: No Hearing needs: No Vision needs: No Female Reproductive History Menstrual Age of Menarche: 12 Review of Systems Const All systems reviewed & are unremarkable except as noted in HPI and below Physical Exam Vital Signs: BMI result Body Mass Index 32.2 Const General: cooperative and no acute distress Orientation/consciousness: patient oriented x3 Resp Effort & Inspection: normal respiratory effort and able to speak in complete sentences Cardio Peripheral pulses: Peripheral pulses 2+ throughout Neuro General: patient oriented x3 Extrem Other: Right ankle: Normal to inspection minimal swelling over the medial and lateral malleolus with tenderness along the soft tissues. No discomfort along the posterior aspect of the ankle, no deformity along the Achilles tendon, negative Johnson?s. No pain along the syndesmosis or anterior tibia. No laxity, NVI. Results Reviewed Results Reviewed: Xrays were obtained in the office today and personally reviewed by me of the left ankle are negative for acute fractures and dislocations. ankle mortise intact. Assessment & Plan Assessment & Plan (1) Sprain of right ankle: Code(s): S93.401A - Sprain of unspecified ligament of right ankle, initial encounter Qualifiers: Encounter type: initial encounter Involved ligament of ankle: anterior talofibular ligament Qualified Code(s): S93.491A - Sprain of other ligament of right ankle, initial encounter Plan We discussed options which include PT, NSAIDs and injections. The patient will defer on the injection today and proceed with PT and NSAIDs. She was given a lace up ankle brace as well and she will be excused from physical fitness testing for the until she is completed with physical therapy. If symptoms persist, the patient will contact me for an injection, otherwise, PRN. Orders: Orders XR ankle RT min 3V Today M25.571 - Pain in right ankle and joints of right foot PT Evaluation and Treatment Today S93.401A - Sprain of unspecified ligament of right ankle, initial encounter Patient Instructions: Scribed for Jacquelin Jeffrey PA-C, by Brock Gaspar medical donation professional, on 07/10/2023 at 1:00 PM EST. I, Jacquelin Jeffrey PA-C, have personally reviewed and agree with the information entered by the scribe. Coding Level of Care Code New Pt Level 3 (02770) Diagnoses Sprain of anterior talofibular ligament of right ankle, initial encounter S93.491A Encounter type: initial encounter Involved ligament of ankle: anterior talofibular ligament
[2023-07-10 13:05] VITALS: BMI 32.2
== END 2023-07-10 13:53 | disposition home or self-care (01) ==
PROVIDERS: PCP Physician Assistant; Visit Provider Physician Assistant
DX: S93.491A Sprain of other ligament of right ankle, initial encounter (principal)
CPT/HCPCS: 99203

== ENCOUNTER 2023-08-30 16:00 | Outpatient (RCR) | payer OTHER, SELFPAY ==
--- NOTE | 2023-08-02 15:27 | MHC.PT.EP ---
[facility] [place] Office [place] Office [place] Office [address] [phone] F: [phone] F: [phone] F: [phone] F: [phone] Physical Therapy Plan of Care Date of Evaluation: 08/02/23 Date of Surgery: Diagnosis: RIGHT ankle sprain Assessment: Patient is a pleasant 32 y.o. female who is referred to PT by Jacquelin Jeffrey PA-C with Dx of RIGHT ankle sprain. Patient impairments include mild pain, localized swelling, limited ROM, weakness, antalgic gait. Patient current functional limitations are driving, walking/running, walking, running (2 miles 3-4x/week), physical fitness exercise videos. Patient will benefit from skilled PT to address aforementioned impairments and functional limitations to meet established goals. Frequency and Duration: The patient will be seen 2x/week for 4 weeks Short Term Goals: 2 weeks Patient demonstrates consistency and independence with HEP to self manage symptoms. Mat Sewer Goals: 4 weeks Patient presents with increased R ankle DF AROM 10 degrees to restore to PLOF jogging/running. Patient presents with increased R ankle inversion/eversion 5/5 to be able to resume PLOF exercise videos/programs. Treatment Plan: Modalities to reduce pain, spasms and effusion. Manual therapy to restore motion and function. Therapeutic exercise to improve strength and flexibility. Neuromuscular re-education for posture and balance. Therapeutic activities to return to functional activities of daily living. Electronically signed by: Elbert Plascencia, PT, DPT Please sign and return to therapist. Thank you for your referral.
--- NOTE | 2023-08-30 17:06 | MHC.PT.DC ---
[facility] [place] Office [place] Office [place] Office [address] [phone] F: [phone] F: [phone] F: [phone] F: [phone] Physical Therapy Discharge Report Diagnosis: RIGHT ankle sprain Date of Surgery: Date of Evaluation: 08/02/23 Date of Discharge: 08/30/23 Treatments to Date: 7 Cancellations to Date: No Shows to Date: Discharge Status: Achieved Goals Improved Function Independent with HEP Discharge Summary: Annika has been able to return to the gym and begin working on fast treadmill walking, building up endurance to running. She is showing increased ankle strength and full AROM. She feels ready for discharge from PT as she has made significant improvements and can continue independently. Electronically signed by: Elbert Plascencia, PT, DPT Please sign and return to therapist. Thank you for your referral.
== END 2023-08-30 17:06 | disposition home or self-care (01) ==
LOC: HO.PT 16:00
PROVIDERS: PCP Physician Assistant; Visit Provider Physician Assistant
DX: S93.401A Sprain of unspecified ligament of right ankle, initial encounter (principal)
CPT/HCPCS: 97035; 97110; 97112; 97161; 97530

== ENCOUNTER 2023-09-13 10:20 | Outpatient (AMB) | payer OTHER, SELFPAY ==
[2023-09-13 10:22] VITALS: BP 108/76; PULSE 77; BMI 33.2
--- NOTE | 2023-09-13 10:22 | A.OFFVIS_ITS ---
Intake Vital Signs 09/13/23 10:22 Height 5 ft 3 in Weight 187 lb 2.759 oz BMI 33.2 BP 108/76 Blood Pressure Location Lt brachial Position Sitting Pulse 77 Pulse Source Pulse Oximeter Intake Visit Reasons: pituitary macroadenoma-CONFIRMED Intake Note: Former Dr. Reeves patient last seen on 08/24/22. Patient presents today to follow up on Pituitary Macroadenoma, patient last MRI of the brain was on 01/26/23. Contract Runner Required: No Accompanied by: Self / Same As Patient Allergies No Known Allergies [No Known Allergies*] Allergy (Verified 09/13/23 10:26) Medication List - Last Reconciled 09/13/23 by Rc Westbrook MD norethindrone ac-eth estradiol 1.5-30 mg-mcg (Aurovela) 1 tab PO DAILY HPI HPI Comments History of Present Illness Details 31 YO Female with a PMHx of a macroprolactinoma as well as hyperprolactinemia who is seen in F/U. She was previously followed by Dr. Thornton. The patient last saw Dr. Reeves on 08/24/2022 She was noted to have a 1.0 cm Pituitary macroadenoma, with slight elevation of her Prolactin to approximately 50. She was initially started on Cabergoline, but was not able to tolerate this due to headaches. She was switched to bromocriptine and her prolactin normalized on this. She was having amenorrhea, requiring a 10 day course of provera to induce menses. This improved once prolactin normalized. She then stopped the bromocriptine and switched to OCP, and remains on that now. She was reporting galactorrhea while prolactin was elevated, this has now subsided Repeat Pituitary MRI completed 01/26/2022 reveals no change in the size of her macroadenoma, remaining stable at 1.0 cm with slight suprasellar extension but no impingement on optic chiasm. She currently denies any headaches or visual complaints. She had formal visual yanez assessed 12/17/2020 which were WNL. After her 2nd visit with me we stopped the bromocriptine as I suspected this did not represent a prolactinoma, but rather a nonsecreting pituitary macroadenoma with elevated prolactin due to stalk effect. She stopped the bromocriptine and started OCP and menses have since normalized and she no longer uses provera. She did see Dr. Awilda Acosta [place] [facility] [place]. Recommendation was to remain on bromocriptine and reassess pituitary MRI yearly. She opted to instead stop the bromocriptine and start OCP. Prolactin has increased slightly, but has remained stable. She does have a history of eeclampsia with her first and only , and cardiomyopathy. This has resolved, and she had an essentially normal echo 01/29/2021 which revealed only trace tricuspid regurgitation. Menses are now WNL. She also reports hirsutism of the face and neck. She reports some aggression, but denies compulsions or gambling. Pituitary MRI: 01/26/2022 FINDINGS: Redemonstrated is the previously noted cystic lesion on the left side of the pituitary gland. On the current study, this measures 0.8 cm maximum height, stable from previous study. Maximum AP dimension is 1 cm unchanged with maximum transverse dimension in the coronal plane of 0.6 cm compared to 0.7 on the previous e xam. This protrudes into the left side of the suprasellar cistern with no impingement on the adjacent optic chiasm. The remainder of the pituitary gland enhances homogenously. The infundibulum is stable in appearance and enhances normally, in the midline. No cavernous sinus invasion. Normal signal voids in the adjacent carotid siphons. There are multiple non-enlarged intraparotid lymph nodes stable in appearance bilaterally. Multiple bilateral submandibular space lymph nodes are seen bilaterally which are stable. No focal reduced diffusion is seen to suggest acute or subacute cerebral ischemia focal curvilinear band-like T1 hypo-/T2 signal hyperintensity in the deep left periventricular temporal lobe white matter is again noted with no abnormal enhancement, stable in appearance. Remainder of the brain is normal in morphology and signal intensity. No other mass lesions are identified and there is no abnormal brain parenchymal or leptomeningeal enhancement. No extra-axial fluid collections, space-occupying process or mass effect. The ventricular system and subarachnoid spaces are within normal limits without hydrocephalus. Normal signal voids are seen in the visualized major intracranial vessels. Stable retained secretions in the right petrous apex. Osseous marrow signal intensity is within normal limits. MR/MR head/brain wo/w con IMPRESSION: 1. Essentially, stable cystic pituitary lesion on the left, as described above. ? 2. Stable, nonenhancing, nonspecific zon e of white matter T2 hyperintensity in the left temporal lobe. ? 3. No acute intracranial process. Thyroid US: 08/03/2021 Right Thyroid Lobe: 4.7 x 1.6 x 1.5 cm, volume 5.8 mL. Parenchyma: The gland echotexture is homogeneous. Thyroid vascularity is normal. Left Thyroid Lobe: 3.9 x 0.8 x 1.3 cm, volume 2.2 mL. Parenchyma: The gland echotexture is homogeneous. Thyroid vascularity is normal. Isthmus: 0.3 cm in maximum AP dimension. Estimated total number of nodules greater than or equal to 1 cm: 0. Automatic Stacker nodules are described as follows: 1. Location: Right lower pole. ?? ? Size: 0.3 x 0.2 x 0.3 cm, volume 0.01 mL. ?? ? Nodule characteristics: ?? ? Composition: Solid/almost completely solid (2). ?? ? Echogenicity: Hypoechoic (2). ?? ? Shape: Not taller than wide (0). ?? ? Margins: Smooth (0). ?? ? Echogenic Foci: None (0).? ACR TI-RADS total points: 4 ?? ? ACR TI-RADS category: 4 There are 2 colloid cysts in the left thyroid lobe, not measured. NODES: No lymphadenopathy is seen in the tissue surrounding the thyroid gland. Labs: Continues on a control pill with nl menses . No plans for . Recent MRI showed no change in the size of the mass and no impingement on the optic chiasm. She does complain of moodiness, light menses and some weight gain. No specific symptoms of Jemima's. Laboratory Tests 08/23/22 07:53 Random Cortisol 21.0 [facility] Medical History Abnormal brain MRI Amenorrhea Atrial tachycardia Goiter Hyperprolactinemia Peripartum cardiomyopathy Pituitary adenoma Pituitary macroadenoma Surgical History Hx of myringotomy Hx of tonsillectomy Hx of tubal ligation Family History Father High cholesterol History of hypothyroidism Mother History of hypothyroidism Social History Household Members: Children Household Members Other:: daughter Housing: Apartment Alcohol intake: current Alcohol intake frequency: holidays/special occasions only Patient Tobacco Use Status: Never used Tobacco Tobacco use type: Cigarette e-Cigarette/Vaping Use: Never Used Second Hand Smoke Exposure: No service: Yes Current occupational status: employed 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[employer]), Cognitive needs: No Hearing needs: No Vision needs: No Female Reproductive History Menstrual Age of Menarche: 12 Physical Exam Vital Signs: Last Vital Signs Pulse 77 09/13/23 10:22 BP 108/76 09/13/23 10:22 BMI result Body Mass Index 33.2 Const Other: There is no visual field loss by gross confrontation Assessment & Plan Assessment & Plan (1) Pituitary adenoma: Code(s): D35.2 - Benign neoplasm of pituitary gland Plan: This is a 32-year-old female with history of pituitary micro adenoma found to be non-secretory with elevation in prolactin probably due to stalk compression. She is currently on a control pill. Recent MRI showed no significant change in the size of the mass. Plan is to continue current therapy and will continue to follow with serial MRIs. Will check midnight salivary cortisol. Assuming above is normal, will have patient talk to environmental protection geologist about potentially switching control pill want contains more estrogen the might alleviate symptoms Orders: Orders Saliva Cortisol Today D35.2 - Benign neoplasm of pituitary gland Coding Level of Care Code Est Pt Level 3 (59106) Diagnoses Pituitary adenoma D35.2
== END 2023-09-13 10:50 | disposition home or self-care (01) ==
PROVIDERS: PCP Physician Assistant; Visit Provider Internal Medicine Endocrinology, Diabetes & Metabolism
DX: D35.2 Benign neoplasm of pituitary gland (principal)
CPT/HCPCS: 99213

== ENCOUNTER 2023-09-14 10:17 | Outpatient (REF) | payer OTHER, SELFPAY ==
[2023-09-22 13:05] LABS: Saliva Cortisol 0.35 mcg/dL
== END 2023-09-14 10:18 | disposition home or self-care (01) ==
LOC: HO.LNP 10:17
PROVIDERS: PCP Physician Assistant; Visit Provider Internal Medicine Endocrinology, Diabetes & Metabolism
DX: D35.2 Benign neoplasm of pituitary gland (principal)
CPT/HCPCS: 82530; 99212

== ENCOUNTER 2023-10-05 | Outpatient (REF) | payer OTHER, SELFPAY ==
[2023-10-14 14:43] LABS: Saliva Cortisol 0.24 mcg/dL
== END 2023-10-05 00:01 | disposition home or self-care (01) ==
LOC: HO.LNP
PROVIDERS: Visit Provider Internal Medicine Endocrinology, Diabetes & Metabolism
DX: D35.2 Benign neoplasm of pituitary gland (principal)
CPT/HCPCS: 82530

== ENCOUNTER 2023-10-25 15:42 | Outpatient (AMB) | payer OTHER, SELFPAY ==
[2023-10-25 15:46] VITALS: BP 120/82; PULSE 72; TEMP 36.1; O2SAT 98; BMI 33.7
--- NOTE | 2023-10-25 15:46 | AM.OFFWIN_ITS ---
Intake Vital Signs 10/25/23 15:46 Height 5 ft 3 in Weight 190 lb BMI 33.7 BP 120/82 Blood Pressure Location Lt brachial Position Sitting Pulse 72 Pulse Source Pulse Oximeter Temp 97.0 F Temp Source Temporal Artery Scan Pulse Oximetry (%) 98 Oxygen Delivery Method Room Air Intake Visit Reasons: EP congestion headaches nose bleeds Intake Note: pt is here today for congestion headache nose bleed started 1 week ago Patient Tobacco Use Status: Never used Tobacco Allergies No Known Allergies [No Known Allergies*] Allergy (Verified 10/25/23 15:46) Do you need a note to return to daycare/school/sports/work: No HPI HPI Comments History of Present Illness Details This is a 32-year-old female with a past medical history of pituitary adenoma currently managed by Endocrine presenting for evaluation of headaches that she has had intermittently since Monday. Patient describes having a frontal headache with sinus congestion that has not resolved with Excedrin, ibuprofen or Tylenol. Patient reports having crusty nasal discharge that is blood tinged. She denies having any fevers, chills, visual changes, lightheadedness, nausea, vomiting, neck pain or overt epistaxis. Patient states that she was seen at urgent care last week for her sinus congestion and was negative for COVID-19 and influenza. [facility] Medical History Abnormal brain MRI Amenorrhea Goiter Pituitary macroadenoma Atrial tachycardia Peripartum cardiomyopathy Hyperprolactinemia Pituitary adenoma Surgical History Hx of myringotomy Hx of tonsillectomy Hx of tubal ligation Family History Father High cholesterol History of hypothyroidism Mother History of hypothyroidism Social History Household Members: Children Household Members Other:: daughter Housing: Apartment Alcohol intake: current Alcohol intake frequency: holidays/special occasions only Patient Tobacco Use Status: Never used Tobacco Tobacco use type: Cigarette e-Cigarette/Vaping Use: Never Used Second Hand Smoke Exposure: No service: Yes Current occupational status: employed 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[employer]), Cognitive needs: No Hearing needs: No Vision needs: No Female Reproductive History Menstrual Age of Menarche: 12 Review of Systems Const All systems reviewed & are unremarkable except as noted in HPI and below Reports as per HPI Eyes Reports as per HPI and Denies blurry vision ENT Reports no additional complaints, Reports nasal congestion and Reports nasal discharge Card Reports no additional complaints Resp Reports no additional complaints Physical Exam Const General: cooperative, healthy appearing, comfortable and no acute distress Nutritional Appearance: average body habitus Orientation/consciousness: patient oriented x3 Limitations: no limitations HEENT Head: Yes normal to inspection and Yes normocephalic Ears: hearing grossly normal bilaterally, external ears normal, TM's normal bilaterally and EAC's normal General nose exam: Normal external nose present (no nasal discharge or epistaxis) Face and sinus: Yes normal facial exam and Yes sinuses nontender Mouth: Normal oral and palatal mucosa present Throat: Yes postnasal drainage Eyes Eyelids: Yes eyelids normal Conjunctivae: conjunctivae normal Sclerae: sclerae normal Corneas: corneas normal Pupils: Equal, round and reactive pupils present EOM: EOMs intact bilaterally Neck Lymphatic: no lymphadenopathy noted Resp Effort & Inspection: normal respiratory effort, able to speak in complete sentences, no cough and no respiratory distress Auscultation: clear to auscultation bilaterally Cardio Rate: regular rate Rhythm: regular rhythm Neuro General: patient oriented x3 Cranial nerves: Yes Equal, round and reactive pupils present Psych Appearance: grossly normal Mental Status: mental status grossly normal Insight: Good insight present (Psych) Judgement: Good judgement present (Psych) Assessment & Plan Assessment & Plan (1) Acute headache: Comment: Patient is neurologically and in no acute distress. Patient will be Fioricet and follow-up with endocrinology if her headaches do not resolve. Code(s): R51.9 - Headache, unspecified Qualifiers: Headache type: unspecified Intractability: not intractable Qualified Code(s): R51.9 - Headache, unspecified Plan: Fioricet every 6 hours as needed, increase clear fluids daily; work note given for and Monday. Medications: New ssxzerymog-[id number]-cod 22-179-77-30 mg (Fioricet with Codeine) 1 cap PO Q4-6H PRN 10 caps 0RF headache Coding Level of Care Code Est Pt Level 3 (20272) Diagnoses Acute nonintractable headache, unspecified headache type R51.9 Headache type: unspecified Intractability: not intractable Time Spent (min) 20
== END 2023-10-25 16:16 | disposition home or self-care (01) ==
PROVIDERS: PCP Physician Assistant; Visit Provider Physician Assistant
DX: R51.9 Headache, unspecified (principal)
CPT/HCPCS: 99213

== ENCOUNTER 2023-10-30 10:21 | Outpatient (REF) | payer OTHER, SELFPAY ==
[2023-10-30 10:49] LABS: Total Volume 24 Hour Urine 2625 mL
[2023-10-30 11:32] LABS: Creatinine, 24Hr Urine 1.7 G/Day (1.0-2.0)
[2023-11-08 16:53] LABS: Cortisol Free, 24 Hr Urine 36.1 mcg/24 h (4.0-50.0); Creatinine, 24 Hr Urine 1.75 g/24 h (0.50-2.15); Total Volume, 24 Hr Urine 2625 mL
== END 2023-10-30 10:22 | disposition home or self-care (01) ==
LOC: HO.LNP 10:21
PROVIDERS: Visit Provider Internal Medicine Endocrinology, Diabetes & Metabolism
DX: D35.2 Benign neoplasm of pituitary gland (principal)
CPT/HCPCS: 82530; 82570

== ENCOUNTER 2023-12-13 10:50 | Outpatient (AMB) | payer OTHER, SELFPAY ==
[2023-12-13 11:16] VITALS: BP 122/82; PULSE 88; O2SAT 98; BMI 33.5
--- NOTE | 2023-12-13 11:16 | A.OFFPC_ITS ---
Vital Signs 12/13/23 11:16 Height 5 ft 3 in Weight 189 lb BMI 33.5 BP 122/82 Blood Pressure Location Lt brachial Position Sitting Pulse 88 Pulse Source Pulse Oximeter Pulse Oximetry (%) 98 Oxygen Delivery Method Room Air Intake Visit Reasons: Lump on left side of throat Intake Note: Patient is here today for a physical. 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 Accompanied by: Self / Same As Patient Is last menstrual period known: Yes Last menstrual period: 11/21/23 Post menopausal: No Patient : No Allergies No Known Allergies [No Known Allergies*] Allergy (Verified 12/13/23 11:51) Medication List - Last Reconciled 12/13/23 by Adrian Ellison PA-C norethindrone-e.estradiol-iron 1.5 mg-30 mcg (21)/75 mg (7) ( ()) 1 tab PO DAILY Tobacco use date assessed: 12/13/23 Dental Screening Dental Screen Date: 12/13/23 Did you have a dental visit in the last 12 months?: Yes Did you have a dental problem in the last 6 months where you did not have access to dental care?: No Was dental information given to patient?: Patient has dentist HPI Lump on left side of throat HPI Details Patient is a 33-year-old female here today annual physical.? Patient has a past medical history significant for pituitary adenoma, hyperprolactinemia. Patient is followed by endocrinology for pituitary macro adenoma. Concern--> patient recently did sprain her ankle in the fall 2022, still having trouble with long periods of standing and exercise due to ankle pain. Has done physical therapy and is doing home independent therapy. She reports she has not able to do physical exam test for at this time due to her ankle issue .. 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 Was on medication in the past though has discontinued. 24 hour urine testing was normal. Does have elevated cortisol level likely in the setting of stress. . Vaccines: Up-to-date with tetanus, UTD with flu, UTD with COVID vac .. CONSUMER EXPERIENCE CONSULTANT: Seening a CONSUMER EXPERIENCE CONSULTANT at [facility] Medical History (Updated 12/13/23 @ 13:22 by Adrian Ellison PA-C) Abnormal brain MRI Amenorrhea Goiter Pituitary macroadenoma Peripartum cardiomyopathy Hyperprolactinemia Surgical History Hx of myringotomy Hx of tonsillectomy Hx of tubal ligation Family History Father High cholesterol History of hypothyroidism Mother History of hypothyroidism Social History (Updated 12/13/23 @ 11:55 by Adrian Ellison PA-C) Household Members: Children Household Members Other:: daughter Housing: Apartment Alcohol intake: current Alcohol intake frequency: a few times a week Alcohol type: wine Patient Tobacco Use Status: Never used Tobacco Tobacco use type: Cigarette e-Cigarette/Vaping Use: Never Used Second Hand Smoke Exposure: No service: Yes Current occupational status: employed 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 1. Little interest or pleasure in doing things: not at all 2. Feeling down, depressed, or hopeless: not at all 3. Trouble falling or staying asleep, or sleeping too much: not at all 4. Feeling tired or having little energy: not at all 5. Poor appetite or overeating: not at all 6. Feeling bad about yourself - or that you are a failure or have let yourself or your family down: not at all 7. Trouble concentrating on things, such as reading the newspaper or watching television: not at all 8. Moving or speaking so slowly that other people could have noticed. Or the opposite - being so fidgety or restless that you have been moving around a lot more than usual: not at all 9. Thoughts that you would be better off or of hurting yourself in some way: not at all Total score: 0 Depression Screening Interpretation: Negative Depression Screening Done: Yes 48153 - PHQ-9 Billing: Yes Source: Developed by Drs. Rc Townsend, Janell Yeung, Quintin Dye and colleagues, with an educational eric from [email or web address]. Thrive Questionnaire Date Thrive assessed: 12/13/23 I am a: Patient What is your living situation today?: I have a steady place to live Within the past 12 months, did the food you bought not last and you didn't have the money to get more?: Never true Within the past 12 months, did you worry whether your food would run out before you got money to buy more?: Never true Do you have trouble paying for medicines?: No Do you have trouble getting transportation to medical appointments?: No Do you have trouble paying your heating and electricity bill?: No Do you have trouble taking care of your child, family member or friend?: No Do you have trouble with day-to-day activities such as bathing, preparing meals, shopping, managing finances, etc.?: No Are you currently unemployed and looking for a job?: No Are you interested in more education?: No Please select the resources that you would like help with: None Currently or been in a relationship where the following occur: no concerns reported THRIVE Score: 0 AUDIT C Alcohol Use Questionnaire (AUDIT-C) 1. How often do you have a drink containing alcohol?: 4 or more times a week 2. How many drinks containing alcohol do you have on a typical day when you are drinking?: 3 or 4 3. How often do you have six or more drinks on one occasion?: Never Total Score: 5 GRACIELA-7 AMB Questionnaire GRACIELA-7 Date GRACIELA - 7 assessed: 12/13/23 Feeling nervous, anxious, or on edge: 0 = Not at all Not being able to stop or control worryin = Not at all Worrying too much about different things: 0 = Not at all Trouble relaxin = Not at all Being so restless that it is hard to sit still: 0 = Not at all Becoming easily annoyed or irritable: 0 = Not at all Feeling afraid as if something awful might happen: 0 = Not at all Total GRACIELA-7 score (0-4 normal; 5-9 mild; 10-14 moderate; 15-21 severe): 0 Source: Developed by Drs. Rc Townsend, Janell Yeung, Quintin Dye and colleagues, with an educational eric from [email or web address]. GRACIELA-7 Assessment Billing GRACIELA-7 Assessment Tool: GRACIELA-7 Assessment 75911 Review of Systems Const Denies body aches, Denies chills, Denies excessive sweating, Denies fatigue, Denies fever(s) and Denies headache(s) Eyes Denies blurry vision ENT Denies dysphagia, Denies vertigo, Denies dizziness, Denies headache(s), Denies hearing loss and Denies tinnitus Card Denies chest pain, Denies chest pain with activity, Denies syncope, Denies irregular heart rhythm and Denies dyspnea Resp Denies chest congestion, Denies cough, Denies hemoptysis, Denies dyspnea and Denies wheezing GI Denies abdominal pain, Denies melena, Denies hematochezia, Denies coffee ground emesis, Denies dysphagia, Denies diarrhea, Denies nausea and Denies vomiting Denies urinary frequency, Denies dysuria, Denies urinary hesitancy and Denies urinary urgency Musc Denies arthralgias, Denies limited range of motion, Denies muscle cramps and Denies muscle weakness Skin/Breast Denies rash and Denies skin ulcer Neuro Denies Abnormal speech present, Denies confusion, Denies vertigo, Denies dizziness, Denies syncope, Denies headache(s), Denies memory loss and Denies seizure-like activity Psych Denies anxiety, Denies confusion, Denies depression, Denies memory loss, Denies panic attacks and Denies paranoia Endo Denies excessive sweating, Denies fatigue, Denies flushing, Denies polydipsia and Denies polyuria Aller/Immun Denies wheezing Physical exam (Primary Care) Vital Signs: Last Vital Signs Pulse 88 12/13/23 11:16 BP 122/82 12/13/23 11:16 Pulse Ox 98 12/13/23 11:16 Oxygen Delivery Method Room Air 12/13/23 11:16 BMI result Body Mass Index 33.5 Tobacco/Smoking Status: Tobacco use Status Tobacco use date assessed 12/13/23 12/13/23 11:24 Patient Tobacco Use Status Never used Tobacco 12/13/23 11:55 Tobacco use type Cigarette 12/13/23 11:55 e-Cigarette/Vaping Use Never Used 12/13/23 11:55 PHQ-9: PHQ-9 Score PHQ-9: Total score 0 12/13/23 11:56 Depression Screening Interpretation: Negative Thrive Assessment: Date of Thrive Assessment Date Thrive assessed 12/13/23 12/13/23 11:24 Currently or been in a relationship where the following occur: no concerns reported Const General: cooperative, comfortable, no acute distress, alert and awake; No confusion Orientation/consciousness: oriented to person, oriented to place, patient oriented x3 and No confusion HENMT Head: Yes normocephalic Ears: external ears normal and TM's normal bilaterally Face and sinus: No sinus tenderness Mouth: Normal oral and palatal mucosa present and tongue normal Teeth and gingiva: dentition normal and gingiva normal Throat: Yes posterior oropharynx normal, Yes tonsils normal and Yes uvula midli ne Eyes Conjunctivae: conjunctivae normal Sclerae: sclerae normal Pupils: Equal, round and reactive pupils present EOM: EOMs intact bilaterally Direct Ophthalmoscopy: No no photophobia Neck Neck: Yes no lymphadenopathy, No tender and Yes no JVD Thyroid: Thyroid normal Carotids: no bruits Chest Chest palpation & inspection: no tenderness Resp Effort & Inspection: normal respiratory effort, no audible wheezes, not labored and no stridor Auscultation: no crackles, no rales, no rhonchi and no wheezes Cardio Jugular venous distension: no JVD Rate: regular rate, not bradycardic and not tachycardic Rhythm: regular rhythm Bruits: no carotid bruits Peripheral pulses: Peripheral pulses 2+ throughout GI Inspection: Yes normal to inspection, No abdominal wall ecchymosis and No visible herniation Palpation (GI): Soft to palpation, nontender, no guarding, not rigid and No hepatosplenomegaly present Auscultation: normoactive bowel sounds General: Yes no CVA tenderness Back/Spine/Pelvis Back: no CVA tenderness and No back tenderness Cervical Spine: cervical ROM normal Thoracic/Lumbar Spine: thoracic and lumbar spine normal to inspection, straight leg raise negative bilaterally, No thoraco-lumbar ROM limited and No lumbar spinal tenderness Skin Lesions: no lesions Rashes: no rashes Wounds: no wounds Neuro General: oriented to person, oriented to place, patient oriented x3, CN's II-XI intact bilaterally and No confusion Cranial nerves: Yes Equal, round and reactive pupils present and Yes Normal accommodation reflex present Cognition (Neuro): normal cognition Speech: No Abnormal speech present Gait exam (Neuro): Normal gait present Motor exam (neuro): 5/5 motor strength present throughout Extrem Right upper extremity: full ROM; no cyanosis Left upper extremity: full ROM; no cyanosis Right lower extremity: no edema Left lower extremity: no edema Psych Appearance: grossly normal Mental Status: mental status grossly normal Affect: normal affect Attitude: cooperative Thought process: Normal thought process present Assessment and Plan Assessment & Plan (1) Annual physical exam: Code(s): Z00.00 - Encounter for general adult medical examination without abnormal findings (2) Pituitary macroadenoma: Code(s): D35.2 - Benign neoplasm of pituitary gland Plan: Followed by endocrinology. (3) Obese: Code(s): E66.9 - Obesity, unspecified Qualifiers: Body mass index: BMI 30.0-30.9 Obesity classification: adult class 1 (BMI 30 - 34.9) Obesity type: due to excess calories Serious obesity comorbidity presence: without serious comorbidity Qualified Code(s): E66.09 - Other obesity due to excess calories; Z68.30 - Body mass index [BMI]30.0-30.9, adult Plan: Patient does understand her BMI is over 30 will work on being more physically active and adapting to better eating habits to reduce her weight. 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 (6) Hyperprolactinemia: Code(s): E22.1 - Hyperprolactinemia Plan: As part of pituitary macroadenoma. Followed by endocrinology Orders: Orders Comprehensive [place]. Panel Fast Today Z13.1 - Encounter for screening for diabetes mellitus Coding Level of Care Code Est Pt Prev Care [id number]) Diagnoses Annual physical exam Z00.00 Pituitary macroadenoma D35.2 Class 1 obesity due to excess calories without serious comorbidity with body mass index (BMI) of 30.0 to 30.9 in adult E66.09; Z68.30 Body mass index: BMI 30.0-30.9 Obesity classification: adult class 1 (BMI 30 - 34.9) Obesity type: due to excess calories Serious obesity comorbidity presence: without serious comorbidity Screening for diabetes mellitus (DM) Z13.1 Amenorrhea-hyperprolactinemia syndrome E23.0 Hyperprolactinemia E22.1 Additional Codes GRACIELA-7 Assessment Billing - GRACIELA-7 Assessment Tool: GRACIELA-7 Assessment [id number] ([id number])
== END 2023-12-13 12:07 | disposition home or self-care (01) ==
PROVIDERS: PCP Physician Assistant; Visit Provider Physician Assistant
DX: Z00.00 Encounter for general adult medical examination without abnormal findings (principal); D35.2 Benign neoplasm of pituitary gland; E23.0 Hypopituitarism; E22.1 Hyperprolactinemia; E66.09 Other obesity due to excess calories; Z68.30 Body mass index [BMI] 30.0-30.9, adult; Z13.1 Encounter for screening for diabetes mellitus
CPT/HCPCS: 99395

== ENCOUNTER 2024-01-15 15:54 | Outpatient (AMB) | payer OTHER, SELFPAY ==
--- NOTE | 2024-01-15 16:04 | MHC.OFFVIS ---
Vital Signs 01/15/24 16:05 Height 5 ft 3 in Weight 190 lb 7.67 oz BMI 33.7 BP 118/70 Blood Pressure Location Rt brachial Position Sitting Pulse 87 Pulse Source Pulse Oximeter Intake Visit Reasons: f/u microadenoma Intake Note: Patient presents today to follow up on Pituitary Macroadenoma. Physical Biochemist Required: No Accompanied by: Self / Same As Patient Allergies No Known Allergies [No Known Allergies*] Allergy (Verified 01/15/24 16:09) Medication List - Last Reconciled 01/15/24 by Evette Pelaez RN [id number] [id number] mg (Fioricet with Codeine) 1 cap PO Q4H PRN norethindrone-e.estradiol-iron 1.5 mg-30 mcg (21)/75 mg (7) ( FE 1.5 (28)) 1 tab PO DAILY triamcinolone acetonide 0.1% 1 appl topical DAILY 30 days HPI Comments Details: 33 YO Female with a PMHx of a macroprolactinoma as well as hyperprolactinemia who is seen in F/U. She was previously followed by Dr. Thornton. 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 She was initially started on Cabergoline, but was not able to tolerate this due to headaches. She was switched to bromocriptine and her prolactin normalized on this. She was having amenorrhea, requiring a 10 day course of provera to induce menses. This improved once prolactin normalized. She then stopped the bromocriptine and switched to OCP, and remains on that now. She was reporting galactorrhea while prolactin was elevated, this has now subsided Repeat Pituitary MRI completed 01/26/2022 reveals no change in the size of her macroadenoma, remaining stable at 1.0 cm with slight suprasellar extension but no impingement on optic chiasm. She currently denies any headaches or visual complaints. She had formal visual yanez assessed 12/17/2020 which were WNL. After her 2nd visit with me we stopped the bromocriptine as I suspected this did not represent a prolactinoma, but rather a nonsecreting pituitary macroadenoma with elevated prolactin due to stalk effect. She stopped the bromocriptine and started OCP and menses have since normalized and she no longer uses provera. She did see Dr. Awilda Acosta [place] [facility] [place]. Recommendation was to remain on bromocriptine and reassess pituitary MRI yearly. She opted to instead stop the bromocriptine and start OCP. Prolactin has increased slightly, but has remained stable. She does have a history of eeclampsia with her first and only , and cardiomyopathy. This has resolved, and she had an essentially normal echo 01/29/2021 which revealed only trace tricuspid regurgitation. Menses are now WNL. She also reports hirsutism of the face and neck. She reports some aggression, but denies compulsions or gambling. Pituitary MRI: 01/26/2022 FINDINGS: Redemonstrated is the previously noted cystic lesion on the left side of the pituitary gland. On the current study, this measures 0.8 cm maximum height, stable from previous study. Maximum AP dimension is 1 cm unchanged with maximum transverse dimension in the coronal plane of 0.6 cm compared to 0.7 on the previous exam. This protrudes into the left side of the suprasellar cistern with no impingement on the adjacent optic chiasm. The remainder of the pituitary gland enhances homogenously. The infundibulum is stable in appearance and enhances normally, in the midline. No cavernous sinus invasion. Normal signal voids in the adjacent carotid siphons. There are multiple non-enlarged intraparotid lymph nodes stable in appearance bilaterally. Multiple bilateral submandibular space lymph nodes are seen bilaterally which are stable. No focal reduced diffusion is seen to suggest acute or subacute cerebral ischemia focal curvilinear band-like T1 hypo-/T2 signal hyperintensity in the deep left periventricular temporal lobe white matter is again noted with no abnormal enhancement, stable in appearance. Remainder of the brain is normal in morphology and signal intensity. No other mass lesions are identified and there is no abnormal brain parenchymal or leptomeningeal enhancement. No extra-axial fluid collections, space-occupying process or mass effect. The ventricular system and subarachnoid spaces are within normal limits without hydrocephalus. Normal signal voids are seen in the visualized major intracranial vessels. Stable retained secretions in the right petrous apex. Osseous marrow signal intensity is within normal limits. MR/MR head/brain wo/w con IMPRESSION: 1. Essentially, stable cystic pituitary lesion on the left, as described above. ? 2. Stable, nonenhancing, nonspecific zone of white matter T2 hyperintensity in the left temporal lobe. ? 3. No acute intracranial process. Thyroid US: 08/03/2021 Right Thyroid Lobe: 4.7 x 1.6 x 1.5 cm, volume 5.8 mL. Parenchyma: The gland echotexture is homogeneous. Thyroid vascularity is normal. Left Thyroid Lobe: 3.9 x 0.8 x 1.3 cm, volume 2.2 mL. Parenchyma: The gland echotexture is homogeneous. Thyroid vascularity is normal. Isthmus: 0.3 cm in maximum AP dimension. Estimated total number of nodules greater than or equal to 1 cm: 0. Bench Technician nodules are described as follows: 1. Location: Right lower pole. ?? ? Size: 0.3 x 0.2 x 0.3 cm, volume 0.01 mL. ?? ? Nodule characteristics: ?? ? Composition: Solid/almost completely solid (2). ?? ? Echogenicity: Hypoechoic (2). ?? ? Shape: Not taller than wide (0). ?? ? Margins: Smooth (0). ?? ? Echogenic Foci: None (0).? ACR TI-RADS total points: 4 ?? ? ACR TI-RADS category: 4 There are 2 colloid cysts in the left thyroid lobe, not measured. NODES: No lymphadenopathy is seen in the tissue surrounding the thyroid gland. Labs: Continues on a control pill with nl menses . No plans for . Recent MRI showed no change in the size of the mass and no impingement on the optic chiasm. She does complain of moodiness, light menses and some weight gain. No specific symptoms of Richlands's. Laboratory Tests 08/23/22 07:53 Random Cortisol 21.0 On estrogen containing OCP. Menses more nl. Some headaches. No loss of vision [facility] Medical History (Updated 12/14/23 @ 11:01 by Adrian Ellison PA-C) Abnormal brain MRI Amenorrhea Goiter Pituitary macroadenoma Peripartum cardiomyopathy Hyperprolactinemia Surgical History Hx of myringotomy Hx of tonsillectomy Hx of tubal ligation Family History Father High cholesterol History of hypothyroidism Mother History of hypothyroidism Social History Household Members: Children Household Members Other:: daughter Housing: Apartment Alcohol intake: current Alcohol intake frequency: a few times a week Alcohol type: wine Patient Tobacco Use Status: Never used Tobacco Tobacco use type: Cigarette e-Cigarette/Vaping Use: Never Used Second Hand Smoke Exposure: No service: Yes Current occupational status: employed 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[employer]), Cognitive needs: No Hearing needs: No Vision needs: No Female Reproductive History Menstrual Age of Menarche: 12 Physical Exam Vital Signs: Last Vital Signs Pulse 87 01/15/24 16:05 BP 118/70 01/15/24 16:05 BMI result Body Mass Index 33.7 Const Other: There is no visual field loss by gross confrontation Assessment & Plan Assessment & Plan (1) Pituitary adenoma: Code(s): D35.2 - Benign neoplasm of pituitary gland Category: Medical Plan: This is a 33-year-old female with history of pituitary micro adenoma found to be non-secretory with elevation in prolactin probably due to stalk compression. She is currently on a control pill. Recent MRI showed no significant change in the size of the mass. Midnight salivary cortisol was slightly elevated but 24 hour urine for free cortisol was normal and ACTH was high normal Plan is to recheck MRI of the pituitary. We will recheck midnight salivary cortisol as well as 24 hour urine for free cortisol and creatinine. 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 depending upon above results (2) Pituitary macroadenoma: Code(s): D35.2 - Benign neoplasm of pituitary gland Category: Medical Plan: See plan for pituitary adenoma Orders: Orders Creatinine, 24 Hr Group Today D35.2 - Benign neoplasm of pituitary gland Adrenocorticotropic Hormone Today D35.2 - Benign neoplasm of pituitary gland Saliva Cortisol Today D35.2 - Benign neoplasm of pituitary gland Cortisol, Free 24Hr Urine Today D35.2 - Benign neoplasm of pituitary gland MR head/brain wo/w con Today D35.2 - Benign neoplasm of pituitary gland Coding Level of Care Code Est Pt Level 3 (03740) Diagnoses Pituitary adenoma D35.2 Pituitary macroadenoma D35.2
[2024-01-15 16:05] VITALS: BP 118/70; PULSE 87; BMI 33.7
== END 2024-01-15 16:36 | disposition home or self-care (01) ==
PROVIDERS: PCP Physician Assistant; Visit Provider Internal Medicine Endocrinology, Diabetes & Metabolism
DX: D35.2 Benign neoplasm of pituitary gland (principal)
CPT/HCPCS: 99213

== ENCOUNTER → 2024-01-15 15:54 | Outpatient (BNVA) | payer OTHER, SELFPAY | PROVIDERS: PCP Physician Assistant; Visit Provider Internal Medicine Endocrinology, Diabetes & Metabolism | DX: D35.2 Benign neoplasm of pituitary gland (principal) | CPT/HCPCS: 99212 ==

== ENCOUNTER 2024-01-20 07:35 | Outpatient (REF) | payer OTHER, SELFPAY ==
[2024-01-20 08:50] LABS: Alanine Aminotransferase 14 U/L (0-31); Albumin Level 4.1 g/dL (3.5-5.0); Alkaline Phosphatase 81 U/L (39-117); Anion Gap 13 (12-20); Aspartate Amino Transferase 15 U/L (5-31); Bilirubin Total 0.4 mg/dL (0.0-1.0); Blood Urea Nitrogen 8 mg/dL (9-16); Calcium 9.5 mg/dL (8.4-10.2); Carbon Dioxide 23 mmol/L (22-29); Chloride 107 mmol/L (96-108); Estimated Glomerular Filt Rate > 60; Glucose Fasting 91 mg/dL (60-99); Potassium 3.5 mmol/L (3.3-5.1); Sodium 139 mmol/L (135-145); Total Protein 7.3 g/dL (6.5-8.0)
[2024-01-20 11:16] LABS: Creatinine, mg/dL 58.14
[2024-01-20 12:50] LABS: Creatinine, 24Hr Urine 1.4 G/Day (1.0-2.0); Total Volume 24 Hour Urine 2475 mL
[2024-01-25 14:39] LABS: Adrenocorticotropic Hormone 35 pg/mL (6-50)
[2024-01-27 17:49] LABS: Cortisol Free, 24 Hr Urine 21.8 mcg/24 h (4.0-50.0); Creatinine, 24 Hr Urine 1.53 g/24 h (0.50-2.15); Total Volume, 24 Hr Urine 2475 mL
== END 2024-01-20 07:36 | disposition home or self-care (01) ==
LOC: HO.LAB 07:35
PROVIDERS: Absent Provider Internal Medicine Endocrinology, Diabetes & Metabolism; PCP Physician Assistant; Visit Provider Physician Assistant
DX: D35.2 Benign neoplasm of pituitary gland (principal); Z13.1 Encounter for screening for diabetes mellitus
CPT/HCPCS: 36415; 80053; 82024; 82530; 82570

== ENCOUNTER 2024-01-27 09:24 | Outpatient (REF) | payer OTHER, SELFPAY ==
[2024-02-07 18:14] LABS: Saliva Cortisol <0.03 mcg/dL
== END 2024-01-27 09:25 | disposition home or self-care (01) ==
LOC: HO.LNP 09:24
PROVIDERS: Visit Provider Internal Medicine Endocrinology, Diabetes & Metabolism
DX: D35.2 Benign neoplasm of pituitary gland (principal)
CPT/HCPCS: 82530

== ENCOUNTER 2024-02-02 11:01 | Outpatient (REF) | payer OTHER, SELFPAY ==
--- NOTE | ~2024-02-02 | MR_ITS ---
MRI OF THE BRAIN WITH AND WITHOUT IV CONTRAST INDICATION: Benign neoplasm of the pituitary gland. COMPARISON: Brain MRI January 26, 2023. TECHNIQUE: Multiplanar multisequence MR imaging of the brain was obtained without and following the administration of 4 mL of Gadavist without complication. FINDINGS: Continued mild interval decrease in size of the cystic lesion within the left lateral aspect of the pituitary gland, currently measuring up to 6 mm AP by 4.5 mm TV by 5 mm cc compared to 8 mm x 6 mm x 5 mm on the January 26, 2023 brain MRI. There is no mass effect on the optic nerve apparatus nor the infundibulum. Cavernous sinuses are symmetric and normal. There is no pathologic intracranial enhancement. Stable appearing nonenhancing ovoid focus of T2 signal change within the left temporal periventricular white matter that remains nonspecific. There is no hydrocephalus, extra-axial surface collection, or herniation. The major flow voids at the skull base are preserved. There is no acute infarct on diffusion-weighted imaging. The cerebellar tonsils are normally positioned. The cerebellum and brainstem are normal. The craniocervical junction is normal. There is a right petrous apex effusion. MR/MR head/brain wo/w con IMPRESSION: - Continued mild interval decrease in size of the cystic lesion within the left lateral aspect of the pituitary gland, currently measuring up to 6 mm AP by 4.5 mm TV by 5 mm CC compared to 8 mm x 6 mm x 5 mm on the January 26, 2023 brain MRI. There is no sellar/suprasellar mass effect. - Stable appearing nonenhancing ovoid focus of T2 signal change within the left temporal periventricular white matter that remains nonspecific. - There is a right petrous apex effusion.
[2024-02-02] MEDS: gadobutroL 2 ML VIAL IVPUSH ×2 (12:05→12:07)
== END 2024-02-02 11:02 | disposition home or self-care (01) ==
LOC: HO.MRI 11:01
PROVIDERS: PCP Physician Assistant; Visit Provider Internal Medicine Endocrinology, Diabetes & Metabolism
DX: D35.2 Benign neoplasm of pituitary gland (principal)
CPT/HCPCS: 70553; A9585

== ENCOUNTER 2024-05-16 10:29 | Outpatient (AMB) | payer OTHER, SELFPAY ==
--- NOTE | 2024-05-16 10:32 | A.OFFVIS_ITS ---
Vital Signs 05/16/24 10:33 Height 5 ft 3 in Weight 185 lb 3.013 oz BMI 32.8 BP 98/68 Blood Pressure Location Rt brachial Position Sitting Pulse 85 Pulse Source Pulse Oximeter Intake Visit Reasons: f/u microadenoma/LVM Intake Note: Patient presents today for a follow-up on Microadenoma Outreach Director Required: No Accompanied by: Self / Same As Patient Allergies No Known Allergies [No Known Allergies*] Allergy (Verified 05/16/24 10:33) Medication List - Last Reconciled 05/16/24 by Rc Westbrook MD zlwjaznpug-ijarihtusa-odd-cod [id number] mg 1 cap PO Q4H PRN 2 days norethindrone-e.estradiol-iron 1.5 mg-30 mcg (21)/75 mg (7) ( FE 1.5/30 (28)) 1 tab PO DAILY triamcinolone acetonide 0.1% 1 appl topical DAILY 30 days HPI Comments Details: 33 YO Female with a PMHx of a macroprolactinoma as well as hyperprolactinemia who is seen in F/U. 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 She was initially started on Cabergoline, but was not able to tolerate this due to headaches. She was switched to bromocriptine and her prolactin normalized on this. She was having amenorrhea, requiring a 10 day course of provera to induce menses. This improved once prolactin normalized. She then stopped the bromocriptine and switched to OCP, and remains on that now. She was reporting galactorrhea while prolactin was elevated, this has now subsided Repeat Pituitary MRI completed 01/26/2022 reveals no change in the size of her macroadenoma, remaining stable at 1.0 cm with slight suprasellar extension but no impingement on optic chiasm. She currently denies any headaches or visual complaints. She had formal visual yanez assessed 12/17/2020 which were WNL. After her 2nd visit with me we stopped the bromocriptine as I suspected this did not represent a prolactinoma, but rather a nonsecreting pituitary macroadenoma with elevated prolactin due to stalk effect. She stopped the bromocriptine and started OCP and menses have since normalized and she no longer uses provera. She did see Dr. Awilda Acosta from [facility] Neurosurgery 08/31/2021. Recommendation was to remain on bromocriptine and reassess pituitary MRI yearly. She opted to instead stop the bromocriptine and start OCP. Prolactin has increased slightly, but has remained stable. She does have a history of eeclampsia with her first and only , and cardiomyopathy. This has resolved, and she had an essentially normal echo 01/29/2021 which revealed only trace tricuspid regurgitation. Menses are now WNL. She also reports hirsutism of the face and neck. She reports some aggression, but denies compulsions or gambling. Pituitary MRI: 01/26/2022 FINDINGS: Redemonstrated is the previously noted cystic lesion on the left side of the pituitary gland. On the current study, this measures 0.8 cm maximum height, stable from previous study. Maximum AP dimension is 1 cm unchanged with maximum transverse dimension in the coronal plane of 0.6 cm compared to 0.7 on the previous exam. This protrudes into the left side of the suprasellar cistern with no impingement on the adjacent optic chiasm. The remainder of the pituitary gland enhances homogenously. The infundibulum is stable in appearance and enhances normally, in the midline. No cavernous sinus invasion. Normal signal voids in the adjacent carotid siphons. There are multiple non-enlarged intraparotid lymph nodes stable in appearance bilaterally. Multiple bilateral submandibular space lymph nodes are seen bilaterally which are stable. No focal reduced diffusion is seen to suggest acute or subacute cerebral ischemia focal curvilinear band-like T1 hypo-/T2 signal hyperintensity in the deep left periventricular temporal lobe white matter is again noted with no abnormal enhancement, stable in appearance. Remainder of the brain is normal in morphology and signal intensity. No other mass lesions are identified and there is no abnormal brain parenchymal or leptomeningeal enhancement. No extra-axial fluid collections, space-occupying process or mass effect. The ventricular system and subarachnoid spaces are within normal limits without hydrocephalus. Normal signal voids are seen in the visualized major intracranial vessels. Stable retained secretions in the right petrous apex. Osseous marrow signal intensity is within normal limits. MR/MR head/brain wo/w con IMPRESSION: 1. Essentially, stable cystic pituitary lesion on the left, as described above. ? 2. Stable, nonenhancing, nonspecific zone of white matter T2 hyperintensity in the left temporal lobe. ? 3. No acute intracranial process. Thyroid US: 08/03/2021 Right Thyroid Lobe: 4.7 x 1.6 x 1.5 cm, volume 5.8 mL. Parenchyma: The gland echotexture is homogeneous. Thyroid vascularity is normal. Left Thyroid Lobe: 3.9 x 0.8 x 1.3 cm, volume 2.2 mL. Parenchyma: The gland echotexture is homogeneous. Thyroid vascularity is normal. Isthmus: 0.3 cm in maximum AP dimension. Estimated total number of nodules greater than or equal to 1 cm: 0. Sonography Technologist nodules are described as follows: 1. Location: Right lower pole. ?? ? Size: 0.3 x 0.2 x 0.3 cm, volume 0.01 mL. ?? ? Nodule characteristics: ?? ? Composition: Solid/almost completely solid (2). ?? ? Echogenicity: Hypoechoic (2). ?? ? Shape: Not taller than wide (0). ?? ? Margins: Smooth (0). ?? ? Echogenic Foci: None (0).? ACR TI-RADS total points: 4 ?? ? ACR TI-RADS category: 4 There are 2 colloid cysts in the left thyroid lobe, not measured. NODES: No lymphadenopathy is seen in the tissue surrounding the thyroid gland. Labs: Laboratory Tests 08/23/22 07:53 Random Cortisol 21.0 On estrogen containing OCP. Menses more nl. Some headaches. No loss of vision . Recent MRI of the pituitary showed decrease in the size of the adenoma . A workup for Fargo's showed normal midnight salivary cortisol and normal 24 hour urine for free cortisol [facility] Medical History Abnormal brain MRI Amenorrhea Goiter Pituitary macroadenoma Peripartum cardiomyopathy Hyperprolactinemia Surgical History Hx of myringotomy Hx of tonsillectomy Hx of tubal ligation Family History Father High cholesterol History of hypothyroidism Mother History of hypothyroidism Social History Household Members: Children Household Members Other:: daughter Housing: Apartment Alcohol intake: current Alcohol intake frequency: a few times a week Alcohol type: wine Patient Tobacco Use Status: Never used Tobacco Tobacco use type: Cigarette e-Cigarette/Vaping Use: Never Used Second Hand Smoke Exposure: No service: Yes Current occupational status: employed 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 She is currently on a control pill. Recent MRI showed no significant change in the size of the mass. Midnight salivary cortisol was slightly elevated but 24 hour urine for free cortisol was normal and ACTH was high normal. A repeat midnight salivary cortisol was normal. Plan is to continue the control pill. We will continue to observe Coding Level of Care Code Est Pt Level 3 (07371) Diagnoses Pituitary adenoma D35.2
[2024-05-16 10:33] VITALS: BP 98/68; PULSE 85; BMI 32.8
== END 2024-05-16 10:54 | disposition home or self-care (01) ==
PROVIDERS: PCP Physician Assistant; Visit Provider Internal Medicine Endocrinology, Diabetes & Metabolism
DX: D35.2 Benign neoplasm of pituitary gland (principal)
CPT/HCPCS: 99213

== ENCOUNTER → 2024-05-16 10:29 | Outpatient (BNVA) | payer OTHER, SELFPAY | PROVIDERS: PCP Physician Assistant; Visit Provider Internal Medicine Endocrinology, Diabetes & Metabolism | DX: D35.2 Benign neoplasm of pituitary gland (principal) | CPT/HCPCS: 99212 ==

== ENCOUNTER 2024-09-12 14:50 | Outpatient (AMB) | payer BC, SELFPAY ==
--- NOTE | 2024-09-12 14:50 | MHC.OFFVIS ---
Vital Signs 09/12/24 14:51 Height 5 ft 3 in Weight 193 lb 9.054 oz BMI 34.3 BP 102/68 Blood Pressure Location Rt brachial Position Sitting Pulse 52 Pulse Source Pulse Oximeter Intake Visit Reasons: f/u microadenoma Intake Note: Patient present today for Microadenoma office visit. Anti Air Warfare Operations Officer Required: No Accompanied by: Self / Same As Patient Allergies No Known Allergies [No Known Allergies*] Allergy (Verified 09/12/24 14:56) Medication List - Last Reconciled 09/12/24 by Rc Westbrook MD gictnvamor-ryupwxlcaa-mdd-cod [id number] mg 1 cap PO Q4H PRN 2 days norethindrone-e.estradiol-iron 1.5 mg-30 mcg (21)/75 mg (7) ( FE 1.5/30 (28)) 1 tab PO DAILY triamcinolone acetonide 0.1% 1 appl topical DAILY 30 days HPI Comments Details: 33 YO Female with a PMHx of a macroprolactinoma as well as hyperprolactinemia who is seen in F/U. 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 She was initially started on Cabergoline, but was not able to tolerate this due to headaches. She was switched to bromocriptine and her prolactin normalized on this. She was having amenorrhea, requiring a 10 day course of provera to induce menses. This improved once prolactin normalized. She then stopped the bromocriptine and switched to OCP, and remains on that now. She was reporting galactorrhea while prolactin was elevated, this has now subsided Repeat Pituitary MRI completed 01/26/2022 reveals no change in the size of her macroadenoma, remaining stable at 1.0 cm with slight suprasellar extension but no impingement on optic chiasm. She currently denies any headaches or visual complaints. She had formal visual yanez assessed 12/17/2020 which were WNL. After her 2nd visit with me we stopped the bromocriptine as I suspected this did not represent a prolactinoma, but rather a nonsecreting pituitary macroadenoma with elevated prolactin due to stalk effect. She stopped the bromocriptine and started OCP and menses have since normalized and she no longer uses provera. She did see Dr. Awilda Acosta from [facility] Neurosurgery 08/31/2021. Recommendation was to remain on bromocriptine and reassess pituitary MRI yearly. She opted to instead stop the bromocriptine and start OCP. Prolactin has increased slightly, but has remained stable. She does have a history of eeclampsia with her first and only , and cardiomyopathy. This has resolved, and she had an essentially normal echo 01/29/2021 which revealed only trace tricuspid regurgitation. Menses are now WNL. She also reports hirsutism of the face and neck. She reports some aggression, but denies compulsions or gambling. Pituitary MRI: 01/26/2022 FINDINGS: Redemonstrated is the previously noted cystic lesion on the left side of the pituitary gland. On the current study, this measures 0.8 cm maximum height, stable from previous study. Maximum AP dimension is 1 cm unchanged with maximum transverse dimension in the coronal plane of 0.6 cm compared to 0.7 on the previous exam. This protrudes into the left side of the suprasellar cistern with no impingement on the adjacent optic chiasm. The remainder of the pituitary gland enhances homogenously. The infundibulum is stable in appearance and enhances normally, in the midline. No cavernous sinus invasion. Normal signal voids in the adjacent carotid siphons. There are multiple non-enlarged intraparotid lymph nodes stable in appearance bilaterally. Multiple bilateral submandibular space lymph nodes are seen bilaterally which are stable. No focal reduced diffusion is seen to suggest acute or subacute cerebral ischemia focal curvilinear band-like T1 hypo-/T2 signal hyperintensity in the deep left periventricular temporal lobe white matter is again noted with no abnormal enhancement, stable in appearance. Remainder of the brain is normal in morphology and signal intensity. No other mass lesions are identified and there is no abnormal brain parenchymal or leptomeningeal enhancement. No extra-axial fluid collections, space-occupying process or mass effect. The ventricular system and subarachnoid spaces are within normal limits without hydrocephalus. Normal signal voids are seen in the visualized major intracranial vessels. Stable retained secretions in the right petrous apex. Osseous marrow signal intensity is within normal limits. MR/MR head/brain wo/w con IMPRESSION: 1. Essentially, stable cystic pituitary lesion on the left, as described above. ? 2. Stable, nonenhancing, nonspecific zone of white matter T2 hyperintensity in the left temporal lobe. ? 3. No acute intracranial process. Thyroid US: 08/03/2021 Right Thyroid Lobe: 4.7 x 1.6 x 1.5 cm, volume 5.8 mL. Parenchyma: The gland echotexture is homogeneous. Thyroid vascularity is normal. Left Thyroid Lobe: 3.9 x 0.8 x 1.3 cm, volume 2.2 mL. Parenchyma: The gland echotexture is homogeneous. Thyroid vascularity is normal. Isthmus: 0.3 cm in maximum AP dimension. Estimated total number of nodules greater than or equal to 1 cm: 0. Credit Risk Associate nodules are described as follows: 1. Location: Right lower pole. ?? ? Size: 0.3 x 0.2 x 0.3 cm, volume 0.01 mL. ?? ? Nodule characteristics: ?? ? Composition: Solid/almost completely solid (2). ?? ? Echogenicity: Hypoechoic (2). ?? ? Shape: Not taller than wide (0). ?? ? Margins: Smooth (0). ?? ? Echogenic Foci: None (0).? ACR TI-RADS total points: 4 ?? ? ACR TI-RADS category: 4 There are 2 colloid cysts in the left thyroid lobe, not measured. NODES: No lymphadenopathy is seen in the tissue surrounding the thyroid gland. Labs: Laboratory Tests 08/23/22 07:53 Random Cortisol 21.0 On estrogen containing OCP. Menses more nl. Some headaches. No loss of vision . Recent MRI of the pituitary showed decrease in the size of the adenoma . A workup for Dresser's showed normal midnight salivary cortisol and normal 24 hour urine for free cortisol Having nl menses without BCP. No discharge from breast. [facility] Medical History Abnormal brain MRI Amenorrhea Goiter Pituitary macroadenoma Peripartum cardiomyopathy Hyperprolactinemia Surgical History Hx of myringotomy Hx of tonsillectomy Hx of tubal ligation Family History Father High cholesterol History of hypothyroidism Mother History of hypothyroidism Social History Household Members: Children Household Members Other:: daughter Housing: Apartment Alcohol intake: current Alcohol intake frequency: a few times a week Alcohol type: wine Patient Tobacco Use Status: Never used Tobacco Tobacco use type: Cigarette e-Cigarette/Vaping Use: Never Used Second Hand Smoke Exposure: No service: Yes Current occupational status: employed 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[employer]), Cognitive needs: No Hearing needs: No Vision needs: No Female Reproductive History Menstrual Age of Menarche: 12 Physical Exam Vital Signs: Last Vital Signs Pulse 52 09/12/24 14:51 BP 102/68 09/12/24 14:51 BMI result Body Mass Index 34.3 Const Other: There is no visual field loss by gross confrontation Assessment & Plan Assessment & Plan (1) Pituitary adenoma: Code(s): D35.2 - Benign neoplasm of pituitary gland Category: Medical Plan: This is a 33-year-old female with history of pituitary micro adenoma found to be non-secretory with elevation in prolactin probably due to stalk compression. She is off control pill. Recent MRI showed no significant change in the size of the mass. Midnight salivary cortisol was slightly elevated but 24 hour urine for free cortisol was normal and ACTH was high normal. A repeat midnight salivary cortisol was normal. Plan is to recheck prolactin fasting. We will repeat MRI of the pituitary about 7 months and have patient returned for follow-up visit. I did tell her to call me if her menses became abnormal or she developed galactorrhea as this might be an indication for initiating a dopamine agonist or reinitiate the estrogen (2) Pituitary macroadenoma: Code(s): D35.2 - Benign neoplasm of pituitary gland Category: Medical Plan: See above plan Orders: Orders Prolactin Today D35.2 - Benign neoplasm of pituitary gland MR head/brain wo/w con 7 Months D35.2 - Benign neoplasm of pituitary gland Coding Level of Care Code Est Pt Level 3 (95295) Diagnoses Pituitary adenoma D35.2 Pituitary macroadenoma D35.2
[2024-09-12 14:51] VITALS: BP 102/68; PULSE 52; BMI 34.3
--- OUTSIDE RECORDS SUMMARY | 2024-09-12 14:52 | XMS_ITS ---
Author Name [facility] Organization [facility] [place] Address [address] [place] [address] Care Team Providers Care Gun Perforator Loader Name Role Phone NISHANT SPENCER Primary Care Provider Unavailabl e Selected Encounter This section includes the information on record at [place] for the Encounter. Date/Time Encounter Type Encounter Description Reason Pro vider Source Dec 29, 2023 02:45 PM Outpatient Encounter ADMIN PAT ACTIVTIES (MASNONCT) IHE Encounter Template Text not used by [place] Plan of Treatment: Future Appointments (+ 6 months) and Future Tests (+/- 45 days) The Plan of Treatment section includes future care activities for the patient from all [place] treatmentfacilities. This section includes future appointments and future orders which are active, pending or scheduled. Future Appointments This section includes appointments that were scheduled to occur 6 months from the date of the Encounter, up to a maximum of 20 appointments. The data comes from all [place] treatment facilities. Appointment Date/Time Appointment Type Appointme nt Facility Name January 18, 2024 03:00 PM AMBULATORY - MEDICINE [place] C [facility] January 25, 2024 11:00 AM AMBULATORY - NONE [facility] ([id number]) February 01, 2024 11:00 AM AMBULATORY - NONE [facility] ([id number]) Encounter Notes: All associated encounter notes This section contains the clinical notes associated to the Encounter. Date/Time Encounter Note(s) Provider Source Jan 01, 2024 03:52 PM ADDENDUM: LOCAL TITLE: Addendum STANDARD TITLE: ADDENDUM DATE OF NOTE: JAN 01, 2024@15:52:34 ENTRY DATE: JAN 01, 2024@15:52:34 AUTHOR: MOIZ CARTY EXP COSIGNER: URGENCY: STATUS: COMPLETED AMSA/RN please call to schedule for a 60 min new patient appointment within 20 days, with CWM/SO/PACT 1 CITY CARRIER to meet new pt scheduling guidelines. Appointment needs to be scheduled on or before January PATIENT PHONE - No data available /luisa/ MOIZ CARTY FIELD DIRECTOR BOILER ENGINEER Signed: 01/01/2024 15:53 Receipt Acknowledged By: 01/06/2024 14:22 /es/ ADI MOTTA MSN Ed., BSN ENCAPSULATOR NURSE === --- Original Document --- 12/29/23 CCC: SCHEDULING ADMINISTRATION: Patient Demographics Patient Name: GABE EARLY Patient Primary Phone: [phone] Patient Primary [address]: [address] [place] [address] Patient : 1990 Patient Age: 33 Current Location: [facility] Call Back Number: Caller/Recipient Relation to Patient: Self Administrative Administrative Note Reason: Other Administrative Note Comments: Camden is requesting to schedule a new patient appointment for primary care services at either [facility] or [facility] location. Camden stated that she can be reached at ; when possible, please assist /es/ RAMESH [email or web address] Signed: 12/29/2023 14:45 Receipt Acknowledged By: 12/29/2023 15:18 /es/ JUAN A ACHARYA ADVANCED BOILER ENGINEER for SANDI COOK * AWAITING SIGNATURE * MAYO THOMAS 01/01/2024 15:52 /luisa/ MOIZ CARTY FIELD DIRECTOR BOILER ENGINEER MOIZ CARTY [facility] Dec 29, 2023 02:45 PM ADMINISTRATIVE NOT E: LOCAL TITLE: CCC: SCHEDULING ADMINISTRATION STANDARD TITLE: ADMINISTRATIVE NOTE DATE OF NOTE: DEC 29, 2023@14:45:54 ENTRY DATE: DEC 29, 2023@14:45:54 AUTHOR: RAMESH PIERRE COSIGNER: URGENCY: STATUS: COMPLETED CCC: SCHEDULING ADMINISTRATION Has ADDENDA Patient Demographics Patient Name: GABE EARLY Patient Primary Phone: [phone] Patient Primary [address]: [address] [place] [id number] Patient : 1990 Patient Age: 33 Current Location: [facility] Call Back Number: Caller/Recipient Relation to Patient: Self Administrative Administrative Note Reason: Other Administrative Note Comments: [place] is requesting to schedule a new patient appointment for primary care services at either [facility] or [facility] location. Camden stated that she can be reached at ; when possible, please assist /luisa/ RAMESH PIERRE [id number] Signed: 12/29/2023 14:45 Receipt Acknowledged By: 12/29/2023 15:18 /es/ JUAN A ACHARYA ADVANCED BOILER ENGINEER for SANDI COOK 01/08/2024 17:10 /es/ MAYO THOMAS FIELD DIRECTOR AMSA 01/01/2024 15:52 /es/ MOIZ CARTY FIELD DIRECTOR BOILER ENGINEER 01/01/2024 ADDENDUM STATUS: COMPLETED AMSA/RN please call to schedule for a 60 min new patient appointment within 20 days, with CWM/SO/PACT 1 CITY CARRIER to meet new pt scheduling guidelines. Appointment needs to be scheduled on or before January PATIENT PHONE - No data available /luisa/ MOIZ CARTY FIELD DIRECTOR BOILER ENGINEER Signed: 01/01/2024 15:53 Receipt Acknowledged By: 01/06/2024 14:22 /es/ ADI MOTTA MSN Ed., BSN ENCAPSULATOR NURSE [facility]ESH PIERRE [facility]
--- OUTSIDE RECORDS SUMMARY | 2024-09-12 14:52 | XMS_ITS | Encounter Summary ---
Author Name [facility] [place] Organization [facility] [place] [facility] [place] Address [address] [place] [id number] Care Team Providers Care Flight Control Tower Operator Name Role Phone ANTHONYEFRANISHANT KING Primary Care Provider Unavailabl e Selected Encounter This section includes the information on record at [place] for the Encounter. Date/Time Encounter Type Encounter Description Reason Pro vider Source Nov 16, 2023 08:42 AM Outpatient Encounter PRIMARY CARE/MEDICINE IHE Encounter Template Text not used by [place] Plan of Treatment: Future Appointments (+ 6 months) and Future Tests (+/- 45 days) The Plan of Treatment section includes future care activities for the patient from all [place] treatmentfacilities. This section includes future appointments and future orders which are active, pending or scheduled. Future Appointments This section includes appointments that were scheduled to occur 6 months from the date of the Encounter, up to a maximum of 20 appointments. The data comes from all [place] treatment facilities. Appointment Date/Time Appointment Type Appointme nt Facility Name January 18, 2024 03:00 PM AMBULATORY - MEDICINE [place] C [facility] January 25, 2024 11:00 AM AMBULATORY - NONE [facility] ([id number]) February 01, 2024 11:00 AM AMBULATORY - NONE [facility] ([id number]) Encounter Notes: All associated encounter notes This section contains the clinical notes associated to the Encounter. Date/Time Encounter Note(s) Provider Source Nov 16, 2023 08:42 AM PRIMARY CARE TELEP ALPHONSO ENCOUNTER NOTE: LOCAL TITLE: TELEPHONE NOTE/PRIMARY CARE STANDARD TITLE: PRIMARY CARE TELEPHONE ENCOUNTER NOTE DATE OF NOTE: NOV 16, 2023@08:42 ENTRY DATE: NOV 16, 2023@08:42:08 AUTHOR: TIO GILBERT EXP COSIGNER: URGENCY: STATUS: COMPLETED on NEAR list. Lm to call for appt. Letter sent. /luisa/ TIO GILBERT Advanced Data Center Architect Signed: 11/16/2023 08:42 TIO GILBERT DE [facility]
--- OUTSIDE RECORDS SUMMARY | 2024-09-12 14:52 | XMS_ITS | Encounter Summary ---
Author Name [facility] [place] [facility] [place] Address [address] [place] [address] Care Team Providers Care Commercial Assistant Name Role Phone ANTHONYEFRANISHANT KING Primary Care Provider Unavailabl e Selected Encounter This section includes the information on record at [place] for the Encounter. Date/Time Encounter Type Encounter Description Reason Pro vider Source Jan 06, 2024 12:26 PM Outpatient Encounter TELEPHONE PRIMARY CARE IHE Encounter Template Text not used by [place] Plan of Treatment: Future Appointments (+ 6 months) and Future Tests (+/- 45 days) The Plan of Treatment section includes future care activities for the patient from all [place] treatmentfacilities. This section includes future appointments and future orders which are active, pending or scheduled. Future Appointments This section includes appointments that were scheduled to occur 6 months from the date of the Encounter, up to a maximum of 20 appointments. The data comes from all [place] treatment facilities. Appointment Date/Time Appointment Type Appointme nt Facility Name January 18, 2024 03:00 PM AMBULATORY - MEDICINE [facility] January 25, 2024 11:00 AM AMBULATORY - NONE [facility] ([facility]) February 01, 2024 11:00 AM AMBULATORY - NONE [facility] ([facility]) Social History: Smoking Status (Most current) and Tobacco Use (All prior to encounter date) This section includes the most current, and the historical, smoking and tobacco- related health factors from the [facility] facility where the Encounter took place. Current Smoking Status This section includes the most current smoking, or tobacco-related health factor, from the [place] facility where the Encounter took place. Date/Time Current Smoking Status Comment Pattie tirado Jan 06, 2024 12:26 PM VA-TOBACCO NEVER USED [facility] [place] [facility] Encounter Notes: All associated encounter notes This section contains the clinical notes associated to the Encounter. Date/Time Encounter Note(s) Provider Source Jan 06, 2024 12:29 PM LETTERS: LOCAL TITLE: PATIENT LETTER (B) STANDARD TITLE: LETTERS DATE OF NOTE: JAN 06, 2024@12:29 ENTRY DATE: JAN 06, 2024@12:29:05 AUTHOR: ADI MOTTA COSIGNER: URGENCY: STATUS: [place] [address] [phone] * [phone] * Date: 01/06/24 Dear Holliday: Mac Thank you for choosing the [facility] ([place]) [facility]. Please be a few minutes early to this appt- about 15 mins. We would like to update your demographic information. To schedule or if you would like more information regarding [place] health care benefits, please call toll free at [phone]), visit the [place] website at [email or web address], or contact your local [facility]. Welcome to patient aligned care team (Pact Team Eight) with (Dr. Arellano). Prior to meeting you at your new patient appointment we are requesting some of your past medical history so that we may provide you with the exceptional care you deserve. Please note that it is very helpful to have these documents prior to your appointment date as the more information we have the better we will be able to meet your needs: * Last History & Physical * Immunization records * Medication list * Diagnosis list * Most recent labs * Diagnostic screens (Colonoscopy, Abdominal Aortic Aneurysm screen, Mammograms, PAPS, etc.) We have scheduled the following appt with you to see your new PCP: Your appt is scheduled for (01/18/24@1500)- This appt will be about an hour long appt which will give you and your Provider a chance to get to know each other. We have noticed that you are due to receive the following Immunizations: 1. Covid 19 vaccine You may either bring your records with you to your scheduled appointment, or drop them off ahead of your appointment or you may have them faxed to ATTN: CWM/NO/PACT-Pamela Arellano If you have any questions, please do not hesitate to contact the [facility] call center at Ext [phone]. Just so that you know if you're feeling sick we have sick call hours at the [facility], and the [facility]- Mon thru Monday 08-1530- first come first serve- walk-in basis. [facility] also has sick call hours Mon- Mon- 1100-12N, and 3P-4P- first come first serve basis- no appt needed. You can utilize our sick call system once you have seen the PCP for the first appt. Audiology Phone number- [phone]- Ext [phone] Optometry Phone Number- [phone] Ext [phone] Mental Health Clinic- [phone] Ext- [phone] Eligibility/Enrollment- [phone]- Ext-[phone], or- [phone] Veterans Rep [phone] Ext [phone] [facility] [phone] VA Transportation [phone] Ext [phone], or,[phone] [place] Act [phone] ( Call within 72hrs of being seen in an acute care setting Sincerely. [facility] [address] [place] [address] Phone: Ext [phone] Upcoming Appointments: 01/18/24@1500- CWM/NO/PACT-Pamela Motta MSN Ed., BSN, RN [facility] [address] [address] [place] [address] - Ext [phone] [facility] [address] [facility] [place] [address] [place] [address] # [phone] [place] [address] ADI MOTTA [place] [facility] [place] [facility] Jan 06, 2024 12:29 PM MEDICATION MGT NOTE: LOCAL TITLE: MEDICATION RECONCILIATION STANDARD TITLE: MEDICATION MGT NOTE DATE OF NOTE: JAN 06, 2024@12:29 ENTRY DATE: JAN 06, 2024@12:30:08 AUTHOR: ADI MOTTA EXP COSIGNER: URGENCY: STATUS: COMPLETED Vet was given an appt to see: 01/18/24@1500 ====== F: Medication reconciliation D: Velizzette says that she is on the following meds: 1. Fioricet 50mg/300mg/40mg/30mg 1 Cap by mouth every 4-6 hrs as needed for headaches 2. Lo loestin Fe 1mg/10mcg by mouth Daily- Pituitry Adenoma ====== Eileen says that she has the following Medical Dx: 1. Tonsillectomy 2. Myringotomy Tubes 3. Cardiomyopathy 4. Facial Rash 5. Metatarsalgia 6. Pituitary Adenoma 7. Migraines ======= Eileen says that she has the following Medication allergies 1. Eileen says that she has no known drug allergies Vet has no known drug allergies ======= Eileen says that she see's the following Community Providers: 1. Cedric DIRECTOR OF PARTNERSHIPS - Not seeing providerse [address]: [address] [facility] [place] [address] Tel: [facility] 2. Jackson CHOWDARY - PCP General Work Place: [address] [facility] [address] [place] [address], [facility] Tel: [facility] 3. Dr. Rc [place]- [employer]rigeration Systems Installer [address] [place] [address] [address], [place] [address] [facility] [employer] [facility] [facility], [address], [place] [address] /es/ ADI MOTTA MSN Ed., BSN FIREPROOF DOOR MAKER NURSE Signed: 01/06/2024 14:00 Receipt Acknowledged By: 01/08/2024 07:36 /es/ VINICIO GROVE LPN License Practical Nurse 05/01/2024 17:01 /es/ CHELSIE WHITAKER [facility] Veterans Program Manager Home Healthcare 01/08/2024 08:21 /es/ NISHANT ARELLANO D.O. PHYSICIAN 01/08/2024 07:53 /es/ MARIAA RAMIREZ, RN REGISTERED NURSE 01/09/2024 11:36 /es/ DEANNE LYONS, RN MSN REGISTERED NURSE ADI MOTTA [place] [facility] [place] [facility] Jan 06, 2024 12:28 PM LETTERS: LOCAL TITLE: PATIENT LETTER (B) STANDARD TITLE: LETTERS DATE OF NOTE: JAN 06, 2024@12:28 ENTRY DATE: JAN 06, 2024@12:28:28 AUTHOR: ADI MOTTA EXP COSIGNER: URGENCY: STATUS: COMPLETED [facility] Outpatient [address] [address] * * Date: 01/06/24 Dear : Mac Thank you for choosing the [facility] of [facility] [place] [facility]. The Whole Health Program aims to support you in pursuing what matters most to you, and includes services that support your values and overall wellness. This includes the following offerings: * Yoga * Acupuncture * [place] Acupuncture for Acute Pain (offered weekly; drop-in or scheduled) * Individual health coaching * Webfed Offset Press Operator * Biofeedback for Hypertension and Anxiety * Guided Imagery Group * Meditation Group * Cancer Support Group * Stress Management Group ( Stress Less ) The following require no referral from a provider, and can be initiated by you at any time: * Yoga * Meditation * Bovill Acupuncture * Cancer Support Group * Individual Health Coaching * Stress Management Group ( Stress Less ) If interested in any of the above offerings, please reach out to the Whole Health Team at ext. [phone]. To schedule consult-required services, or if you would like more information regarding [place] health care benefits, please call toll free at [phone]), visit the [place] website at [email or web address], or contact your local [place] Medical Center. If you have any questions, please do not hesitate to contact the [facility] call center. Sincerely. Dr. Kacie Wilson [facility] Health and Integrated Size Roller Operator [facility] Direct FABIANADI BEE Yolis [place] [facility] [place] [facility] Jan 06, 2024 12:26 PM PREVENTIVE MEDICINE NURSING NOTE: LOCAL TITLE: CLINICAL REMINDERS/NURSING STANDARD TITLE: PREVENTIVE MEDICINE NURSING NOTE DATE OF NOTE: JAN 06, 2024@12:26 ENTRY DATE: JAN 06, 2024@12:26:37 AUTHOR: ADI MOTTA EXP COSIGNER: URGENCY: STATUS: COMPLETED Advance Directive Screen MH AD: Patient does not have an Advance Directive completed and is requesting more information. The patient received education about Advance Directives and written notification of his/her rights. Vet was sent an advanced directive and was asked to fill out and bring in for PCP appt. Tdap Immunization: Td/Tdap given previously - written records available The patient has previously received the Tetanus, Diphtheria, Pertussis vaccine (Tdap). Documented: TDAP Historical Date Administered: May 05, 2016 Lot: [id number] Exp Date: Unknown Outside Location: Outside Healthcare Provider Information Source: FROM OTHER REGISTRY Comment: tetanus, diphtheria, acellular pertussis Documented: TYPHOID, VICPS Historical Date Administered: Mar 01, 2015 Lot: [id number] Exp Date: Unknown Outside Location: Outside Healthcare Provider Information Source: FROM OTHER REGISTRY Comment: typhoid Vi capsular polysaccharide vac Documented: POLIO, UNSPECIFIED FORMULATION Historical Date Administered: Apr 06, 2012 Critical Care Educator: SANOFI PASTEUR Lot: [id number] Exp Date: Unknown Outside Location: Outside Healthcare Provider Information Source: FROM OTHER REGISTRY Comment: poliovirus vaccine, inactivated Documented: POLIO, UNSPECIFIED FORMULATION Historical Date Administered: Jul 13, 2015 Lot: [id number] Exp Date: Unknown Outside Location: Outside Healthcare Provider Information Source: FROM OTHER REGISTRY Comment: poliovirus vaccine, inactivated Documented: MENINGOCOCCAL MCV4P Historical Date Administered: Apr 06, 2012 Series: Series 1 Critical Care Educator: SANOFI PASTEUR Lot: [id number] Exp Date: Unknown Outside Location: Outside Healthcare Provider Information Source: FROM OTHER REGISTRY Comment: meningococcal polysaccharide (groups A, C, Y and W-135) diphtheria toxoid conjugate vaccine (MCV4P) Documented: HEP B, ADULT Historical Date Administered: Oct 26, 2013 Series: Series 3 Lot: [id number] Exp Date: Unknown Outside Location: Outside Healthcare Provider Information Source: FROM OTHER REGISTRY Comment: hepatitis B vaccine, adult dosage Documented: HEP A-HEP B Historical Date Administered: Apr 06, 2012 Critical Care Educator: [employer] Lot: [id number] Exp Date: Unknown Outside Location: Outside Healthcare Provider Information Source: FROM OTHER REGISTRY Comment: hepatitis A-hepatitis B vaccine Documented: HEP A-HEP B Historical Date Administered: Jun 08, 2012 Critical Care Educator: [employer] Lot: [id number] Exp Date: Unknown Outside Location: Outside Healthcare Provider Information Source: FROM OTHER REGISTRY Comment: hepatitis A-hepatitis B vaccine Documented: HEP A, ADULT Historical Date Administered: Feb 28, 2015 Series: Series 3 Lot: [id number] Exp Date: Unknown Outside Location: Outside Healthcare Provider Information Source: FROM OTHER REGISTRY Comment: hepatitis A vaccine, adult dosage Documented: COVID-19 (MODERNA), MRNA, LNP-S, PF, 100 MCG/0.5ML DOSE OR 50 MCG/0.25ML DOSE Historical Date Administered: Aug 25, 2021 Critical Care Educator: [employer] Outside Location: Outside Healthcare Provider Information Source: FROM OTHER REGISTRY Comment: [id number] .2mg/mL INTRAMUSCULAR INJECTION, SUSPENSION (Moderna COVID-19 Vaccine) Documented: COVID-19 (MODERNA), MRNA, LNP-S, PF, 100 MCG/0.5ML DOSE OR 50 MCG/0.25ML DOSE Historical Date Administered: Nov 22, 2020 Critical Care Educator: [employer] Outside Location: Outside Healthcare Provider Information Source: FROM OTHER REGISTRY Comment: COVID Vaccine Moderna Documented: ANTHRAX VACCINE, UNSPECIFIED Historical Date Administered: Jul 13, 2015 Lot: [id number] Exp Date: Unknown Outside Location: Outside Healthcare Provider Information Source: FROM OTHER REGISTRY Documented: ANTHRAX VACCINE, UNSPECIFIED Historical Date Administered: Aug 11, 2015 Critical Care Educator: [employer] Lot: [id number] Exp Date: Unknown Outside Location: Outside Healthcare Provider Information Source: FROM OTHER REGISTRY Documented: ADENOVIRUS TYPES 4 AND 7 Historical Date Administered: Apr 06, 2012 Series: Series 1 Critical Care Educator: [employer] Lot: [id number] Exp Date: Unknown Outside Location: Outside Healthcare Provider Information Source: FROM OTHER REGISTRY Comment: Adenovirus, type 4 and type 7, live, oral Depression Screening: Perform PHQ-2 A PHQ-2 screen was performed. The score was 0 which is a negative screen for depression. Over the past two weeks, how often have you been bothered by the following problems? 1. Little interest or pleasure in doing things Not at all 2. Feeling down, depressed, or hopeless Not at all Suicide Screen: C-SSRS Screening [place] Suicide Severity Rating Scale (C-SSRS) screener 1. Over the past month, have you wished you were or wished you could go to sleep and not wake up? No 2. Over the past month, have you had any actual thoughts of killing yourself? No 3. Over the past month, have you been thinking about how you might do this? Response not required due to responses to other questions. 4. Over the past month, have you had these thoughts and had some intention of acting on them? Response not required due to responses to other questions. 5. Over the past month, have you started to work out or worked out the details of how to kill yourself? Response not required due to responses to other questions. 6. If yes, at any time in the past month did you intend to carry out this plan? Response not required due to responses to other questions. 7. In your lifetime, have you ever done anything, started to do anything, or prepared to do anything to end your life (for example, collected pills, obtained a gun, gave away valuables, went to the roof but didn't jump)? No 8. If YES, was this within the past 3 months? Response not required due to responses to other questions. Homelessness/Food Insecurity Screen: The reports the following: Within the past 12 months, you worried whether your food would run out before you got money to buy more. Never true Within the past 12 months, the food you bought just didn't last and you didn't have money to get more. Never true MST Screening: Patient denies experiencing sexual trauma (MST). Preferred Language: What is your, or your caregiver's preferred language for healthcare? Preferred Language: [place] PTSD Screening: PC-PTSD-5 A PTSD screening test (PC-PTSD-5) was negative (score=0). IN THE PAST MONTH, have you ever had any experience that was so frightening, horrible or traumatic. For example: A serious accident or fire a physical or sexual assault or abuse An earthquake or flood A war Seeing someone be killed or seriously injured Having a loved one through homicide or suicide 1. Have you ever experienced this kind of event? NO 2. Had nightmares about the event(s) or thought about the event(s) when you did not want to? Response not required due to responses to other questions. 3. Tried hard not to think about the event(s) or went out of your way to avoid situations that reminded you of the event(s)? Response not required due to responses to other questions. 4. Been constantly on guard, watchful, or easily startled? Response not required due to responses to other questions. 5. [place] numb or detached from people, activities, or your surroundings? Response not required due to responses to other questions. 6. [place] guilty or unable to stop blaming yourself or others for the event(s) or any problems the event(s) may have caused? Response not required due to responses to other questions. 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 The Holliday has not already been diagnosed as having TBI during post 05/29 deployment. 1. The experienced the following events during deployment: Patient denies experiencing any TBI related events during deployment. Negative Screen Tobacco Use Screening: The patient has never used tobacco. Influenza Immunization: The patient has received the seasonal influenza vaccine for the current season at another location. Documented: INFLUENZA, UNSPECIFIED FORMULATION Historical Date Administered: Jun 2023 Exact date unknown Outside Location: Outside Healthcare Provider Information Source: FROM OTHER REGISTRY Comment: Adore Alcohol Use Screen (AUDIT-C): Alcohol Screen: SCREEN FOR ALCOHOL (AUDIT-C) An alcohol screening test (AUDIT-C) was negative (score=1). 1. How often did you have a drink containing alcohol in the past year? Consider a drink to be a 12 ounce can or bottle of regular beer, 8 ounces of malt liquor, a 5 ounce glass of table wine, or a 1.5 ounce shot of liquor (like scotch, gin, or vodka). Monthly or less 2. How many drinks containing alcohol did you have on a typical day when you were drinking in the past year? One or two drinks 3. How often did you have 4 or more drinks on one occasion in the past year? Never COVID-19 Immunization: Moderna Patient received a prior dose of the Moderna COVID-19 Vaccine. Documented: COVID-19 (MODERNA), MRNA, LNP-S, PF, 100 MCG/0.5ML DOSE OR 50 MCG/0.25ML DOSE Historical Date Administered: Oct 24, 2020 Series: Series 1 Critical Care Educator: [employer]. Lot: [id number] Exp Date: Unknown Outside Location: Outside Healthcare Provider Information Source: FROM OTHER REGISTRY Comment: Covid Card /es/ ADI MOTTA MSN Ed., BSN FIREPROOF DOOR MAKER NURSE Signed: 01/06/2024 14:01 ADI MOTTA [facility]
--- OUTSIDE RECORDS SUMMARY | 2024-09-12 14:52 | XMS_ITS ---
Author Name [facility] [place] [facility] [place] Address [address] [place] [address] Care Team Providers Care Application Technician Name Role Phone ANTHONYEFRANISHANT KING Primary Care Provider Unavailabl e Selected Encounter This section includes the information on record at [place] for the Encounter. Date/Time Encounter Type Encounter Description Reason Pro vider Source Jan 01, 2024 10:29 AM Outpatient Encounter ADMIN PAT ACTIVTIES (MASNONCT) IHE Encounter Template Text not used by [place] Plan of Treatment: Future Appointments (+ 6 months) and Future Tests (+/- 45 days) The Plan of Treatment section includes future care activities for the patient from all [place] treatmentfacilities. This section includes future appointments and future orders which are active, pending or scheduled. Future Appointments This section includes appointments that were scheduled to occur 6 months from the date of the Encounter, up to a maximum of 20 appointments. The data comes from all [place] treatment facilities. Appointment Date/Time Appointment Type Appointme nt Facility Name January 18, 2024 03:00 PM [place]BULATORY [place]ICINE [place] [facility] January 25, 2024 11:00 AM AMBULATORY - NONE [facility] ([id number]) February 01, 2024 11:00 AM AMBULATORY - NONE [facility] ([id number]) Encounter Notes: All associated encounter notes This section contains the clinical notes associated to the Encounter. Date/Time Encounter Note(s) Provider Source Jan 09, 2024 09:19 AM ADDENDUM: LOCAL TITLE: Addendum STANDARD TITLE: ADDENDUM DATE OF NOTE: JAN 09, 2024@09:19:49 ENTRY DATE: JAN 09, 2024@09:19:49 AUTHOR: CRISTELA SOMMERS EXP COSIGNER: URGENCY: STATUS: COMPLETED Daytime Babysitter has noticed earl is scheduled/pending PACT EIGHT. please correct banner. January 18, 2024. /es/ CRISTELA SOMMERS ADVANCED BUCKLE STRINGER Signed: 01/09/2024 09:24 Receipt Acknowledged By: 01/10/2024 16:13 /es/ MAYO THOMAS DEVELOPER ANALYST [facility] === --- Original Document --- 01/01/24 CCC: SCHEDULING ADMINISTRATION: Patient Demographics Patient Name: GABE EARLY Patient Primary Phone: [phone] Patient Primary Address: [address] [place] [address] Patient : 1990 Patient Age: 33 Call Back Number: [phone] Caller/Recipient Relation to Patient: Self Scheduling Cannot Complete Scheduling Action Reason: Restricted / Unavailable Clinic Requested Service(s): Primary Care Scheduling Note Reason: Cannot Complete Appointment Request Open Request: None of the above Administrative Administrative Note Reason: Other Administrative Note Comments: Earl is calling and is needing to schedule her new patient appointment with a PACT. Please call the back at [phone] to schedule with her. She states that her schedule is pretty flexible for appointments although she does prefer afternoon appointments. She is looking to establish care at the [facility] /es/ MARELY JULIO [facility] Signed: 01/01/2024 10:30 Receipt Acknowledged By: 01/01/2024 13:37 /es/ SANDI COOK MSA DEVELOPER ANALYST, [facility] 01/08/2024 17:16 /es/ MAYO THOMAS DEVELOPER ANALYST [facility] 01/02/2024 13:32 /es/ MOIZ CARTY DEVELOPER ANALYST BUCKLE STRINGER 01/08/2024 ADDENDUM STATUS: COMPLETED Please call to establish care in [place] pact 5. /luisa/ MAYO THOMAS DEVELOPER ANALYST [facility] Signed: 01/08/2024 17:17 Receipt Acknowledged By: 01/09/2024 09:19 /luisa/ CRISTELA SOMMERS ADVANCED BUCKLE STRINGER CRISTELA SOMMERS [place] [facility] Jan 08, 2024 05:16 PM ADDENDUM: LOCAL TITLE: Addendum STANDARD TITLE: ADDENDUM DATE OF NOTE: JAN 08, 2024@17:16:40 ENTRY DATE: JAN 08, 2024@17:16:41 AUTHOR: MAYO THOMAS COSIGNER: URGENCY: STATUS: COMPLETED Please call to establish care in [place] pact 5. /luisa/ MAYO THOMAS DEVELOPER ANALYST ISABELA Signed: 01/08/2024 17:17 Receipt Acknowledged By: 01/09/2024 09:19 /luisa/ CRISTELA SOMMERS ADVANCED BUCKLE STRINGER === --- Original Document --- 01/01/24 CCC: SCHEDULING ADMINISTRATION: Patient Demographics Patient Name: GABE EARLY Patient Primary Phone: [phone] Patient Primary [address]: [address] [place] [address] Patient : 1990 Patient Age: 33 Call Back Number: [phone] Caller/Recipient Relation to Patient: Self Scheduling Cannot Complete Scheduling Action Reason: Restricted / Unavailable Clinic Requested Service(s): Primary Care Scheduling Note Reason: Cannot Complete Appointment Request Open Request: None of the above Administrative Administrative Note Reason: Other Administrative Note Comments: [place] is calling and is needing to schedule her new patient appointment with a PACT. Please call the back at [phone] to schedule with her. She states that her schedule is pretty flexible for appointments although she does prefer afternoon appointments. She is looking to establish care at the [facility] /es/ MARELY JULIO 1 [facility] AMSA Signed: 01/01/2024 10:30 Receipt Acknowledged By: 01/01/2024 13:37 /es/ SANDI COOK MSA DEVELOPER ANALYST, [facility] 01/08/2024 17:16 /luisa/ MAYO THOMAS DEVELOPER ANALYST [facility] 01/02/2024 13:32 /luisa/ MOIZ CARTY DEVELOPER ANALYST BUCKLE STRINGER 01/09/2024 ADDENDUM STATUS: UNSIGNED You may not VIEW this UNSIGNED Addendum. MAYO THOMAS [facility] Jan 01, 2024 10:30 AM ADMINISTRATIVE NOTE: LOCAL TITLE: CCC: SCHEDULING ADMINISTRATION STANDARD TITLE: ADMINISTRATIVE NOTE DATE OF NOTE: JAN 01, 2024@10:30:01 ENTRY DATE: JAN 01, 2024@10:30:01 AUTHOR: MARELY BOWER COSIGNER: URGENCY: STATUS: COMPLETED CCC: SCHEDULING ADMINISTRATION Has ADDENDA Patient Demographics Patient Name: GABE EARLY Patient Primary Phone: [phone] Patient Primary Address: [address] [place] [address] Patient : 1990 Patient Age: 33 Call Back Number: [phone] Caller/Recipient Relation to Patient: Self Scheduling Cannot Complete Scheduling Action Reason: Restricted / Unavailable Clinic Requested Service(s): Primary Care Scheduling Note Reason: Cannot Complete Appointment Request Open Request: None of the above Administrative Administrative Note Reason: Other Administrative Note Comments: Earl is calling and is needing to schedule her new patient appointment with a PACT. Please call the back at [phone] to schedule with her. She states that her schedule is pretty flexible for appointments although she does prefer afternoon appointments. She is looking to establish care at the [facility] /luisa/ [facility] Signed: 01/01/2024 10:30 Receipt Acknowledged By: 01/01/2024 13:37 /es/ SANDI COOK MSA DEVELOPER ANALYST, [facility] 01/08/2024 17:16 /luisa/ MAYO THOMAS DEVELOPER ANALYST [facility] 01/02/2024 13:32 /es/ MOIZ CARTY DEVELOPER ANALYST BUCKLE STRINGER 01/08/2024 ADDENDUM STATUS: COMPLETED Please call to establish care in [place] pact 5. /luisa/ MAYO THOMAS DEVELOPER ANALYST [facility] Signed: 01/08/2024 17:17 Receipt Acknowledged By: 01/09/2024 09:19 /luisa/ CRISTELA SOMMERS ADVANCED BUCKLE STRINGER 01/09/2024 ADDENDUM STATUS: COMPLETED Daytime Babysitter has noticed is scheduled/pending PACT EIGHT. please correct banner. January 18, 2024. /luisa/ CRISTELA SOMMERS ADVANCED BUCKLE STRINGER Signed: 01/09/2024 09:24 Receipt Acknowledged By: * AWAITING SIGNATURE * MAYO THOMAS JESSICA M [place] [facility]
--- OUTSIDE RECORDS SUMMARY | 2024-09-12 14:52 | XMS_ITS | Continuity of Care Document ---
Author Name [facility] Organization [facility] Care Team Providers Care Reworker Name Role Phone [facility] Unavailable Unavailable Problems Combined list of problems from Department of Defense and Veterans Affairs facilities. It does not include entries that were removed or entered in error. Problem Status Onset Date Problem Type Date of Resolution Comments Source normal Inactive 11/14/19 16 Condition DoD Supervision Of Normal First Active 11/14/19 16 Condition DoD Inactive 11/14/19 16 Condition DoD upper respiratory infection Inactive 11/06/19 16 Condition DoD Metatarsalgia Active Condition [facility] Migraine Active Condition [facility] Pituitary adenoma Active Condition [facility] cardiomyopathy Active Condition [facility] Rash Active Condition Jan 06, 2024 Entered By: MICA FRANCO Comment: Facial Rash [facility] ASSESSMENT, PRE-DEPLOYMENT, DOCUMENTED ON [id number] Active Condition DoD Need For Vaccination Against Influenza Inactive Condition DoD metatarsalgia Active Condition DoD Need For Vaccination Against Viral Diseases Inactive Condition DoD Need For Vaccination Against Bacterial Diseases Meningococcal Inactive Condition DoD Need For Vaccination Polio Inactive Condition DoD Need For Vaccination Against DTP Inactive Condition DoD Need For Vaccination Hepatitis A And Hepatitis B Inactive Condition DoD Need For Vaccination Against Bacterial Diseases Inactive Condition DoD visit for: ears / hearing exam Active Condition DoD Patient Education - Injury Prevention Active Condition DoD assess patient condition work-related occupational disease Active Condition DoD visit for: examination of subpopulation Active Condition DoD Diagnosis: ICD-10-CM E66.09 Other obesity due to excess calories Active Diagnosis [facility] ([facility]) Diagnosis: ICD-10-CM G43.909 Migraine, unsp, not intractable, without status migrainosus Active Diagnosis [facility] Diagnosis: ICD-10-CM Z59.811 Housing instability, housed, with risk of homelessness Active Diagnosis [facility] (461[facility]) Medications Combined list of outpatient medications from Department of Defense and Veterans Affairs facilities.Medications provided include 1) outpatient medications from the last 15 months, and 2) patient-reported medications. Medication Details Route Status Patient Instructions Prescription Expires Prescription Number Last Dispense Date Ordering Provider Order Date Order Qty Source BUTALB-ACET AMINOPH-CAF F-CODEIN (BUTALBIT/A CETAMIN/CAF F/CODEINE), 50-300-30, CAPSULE, ORAL, ACTAVIS PHARMA,, 100 ea. BOTTLE Cancele d [id number] : 2023 0 Pharmac y Data Transac tion Service Facilit y BUTALB-ACET AMINOPH-CAF F-CODEIN (BUTALBIT/A CETAMIN/CAF F/CODEINE), 50-300-30, CAPSULE, ORAL, ACTAVIS PHARMA,, 100 ea. BOTTLE Active [id number] 2023 10 Pharmac y Data Transac tion Service Facilit y BUTALB-ACET AMINOPH-CAF F-CODEIN (BUTALBIT/A CETAMIN/CAF F/CODEINE), 50-300-30, CAPSULE, ORAL, ACTAVIS PHARMA,, 100 ea. BOTTLE Cancele d [id number] : 2023 0 Pharmac y Data Transac tion Service Facilit y ESTRADIOL (estradiol) , 0.01 %, CREAM/APPL, VAGINAL, TEVA [place], 42.5 g TUBE Cancele d [id number] : 2023 0 Pharmac y Data Transac tion Service Facilit y ESTRADIOL (estradiol) , 0.01 %, CREAM/APPL, VAGINAL, TEVA [place], 42.5 g TUBE Active [id number] 01/11/20 2 4 2023 42.5 Pharmac y Data Transac tion Service Facilit y LO LOESTRIN FE (norethindr one acetate-eth inyl estradiol/f errous fumarate), 1MG-10(24), TABLET, ORAL, ACTAVIS/ALL ERGA, 28 ea. BLIST PACK Cancele d [id number] : 04/26/ 2024 0 Pharmac y Data Transac tion Service Facilit y LO LOESTRIN FE (norethindr one acetate-eth inyl estradiol/f errous fumarate), 1MG-10(24), TABLET, ORAL, ACTAVIS/ALL ERGA, 28 ea. BLIST PACK Cancele d [id number] : 2023 0 Pharmac y Data Transac tion Service Facilit y TRIAMCINOLO NE ACETONIDE (triamcinol one acetonide), 0.1 %, OINT. (G), TOPICAL, TARO PHARM [place], 30 g TUBE Active [id number] 4 2023 30 Pharmac y Data Transac tion Service Facilit y Allergies, Adverse Reactions, Alerts Combined list of allergies from Department of Defense and Veterans Affairs facilities. It does not include entries that were removed or entered in error. Substance Category Reaction Severity Reaction type Status Date Reported Comments Source No Known Allergies Drug allergy (disorder) active 05/04/2012 [place], [place] Immunizations Combined list of available immunizations from the Department of Defense and Veterans Affairs facilities. Immunization Series Date Given Administered By Site Reaction Lot Number CVX Code Drug Registered Public Health Nurse Status Comments Source INFLUENZA, UNSPECIFIED FORMULATION 2022 88 complet ed [facility] COVID Vaccine Moderna 2020 207 complet ed COVID Vaccine Moderna 08/25/21 Given Ambulat ory Pharmac y COVID-19 (MODERNA), MRNA, LNP-S, PF, 100 MCG/0.5ML DOSE OR 50 MCG/0.25ML DOSE 2020 207 complet ed [id number] .2mg/mL INTRAMUSC ULAR INJECTION , SUSPENSIO N (Moderna COVID-19 Vaccine) Mfr: MODERNA US, INC. [facility] COVID-19, mRNA, LNP-S, PF, 100 mcg or 50 mcg dose 2020 HALIE, Moderna US, Inc. (MOD) Not Given COVID-19, mRNA, LNP-S, PF, 100 mcg or 50 mcg dose DoD Influenza, inj, MDCK, quadrivalent- pf 09/15/ 2021 171 Seqirus complet ed Influenza , inj, MDCK, quadrival ent-pf 06/02/21 Given Ambulat ory Pharmac y Influenza, injectable, MDCK, preservative free, quadrivalent 2020 [place], () Not Given Influenza , injectabl e, MDCK, preservat fiona free, quadrival ent DoD COVID Vaccine Moderna 2020 [id number] complet ed COVID Vaccine Moderna 11/22/20 Given Ambulat ory Pharmac y COVID-19 (MODERNA), MRNA, LNP-S, PF, 100 MCG/0.5ML DOSE OR 50 MCG/0.25ML DOSE 2020 207 complet ed COVID Vaccine Moderna Mfr: MODERNA [employer] [place] [employer] [facility] [employer] [facility] COVID-19 (MODERNA), MRNA, LNP-S, PF, 100 MCG/0.5ML DOSE OR 50 MCG/0.25ML DOSE 1 2020 207 complet ed Covid Card Lot#: [id number] Mfr: MODERNA [employer] [place] [employer] [facility] [employer] [facility] influenza virus vaccine, inactivated 2019 88 complet ed influenza virus vaccine, inactivat ed 07/28/20 Given Ambulat ory Pharmac y influenza, recombinant, quadrivalent, injectable, preservative free 2019 [place], () Not Given influenza , recombina nt, quadrival ent,injec table, preservat fiona free [facility] influenza, seasonal, injectable-pf 2019 [id number] 140 complet ed influenza , seasonal, injectabl e-pf 06/28/20 Given Ambulat ory Pharmac y influenza virus vaccine, inactivated 2018 [id number] Unknown complet ed influenza virus vaccine, inactivat ed 06/20/19 Given Ambulat ory Pharmac y influenza, injectable, quadrivalent- pf 2018 [id number] 150 Seqirus complet ed influenza , injectabl e, quadrival ent-pf 09/30/18 Given Ambulat ory Pharmac y tetanus, diphtheria, acellular pertu is 2015 [id number] 115 complet ed tetanus, diphtheri a, acellular pertussis 05/05/16 Given Ambulat ory Pharmac y TDAP 2015 115 complet ed tetanus, diphtheri a, acellular pertussis Lot#: [id number] [facility] anthrax vaccine 2014 [id number] [employer] complet ed anthrax vaccine 08/11/15 Given Ambulat ory Pharmac y anthrax vaccine 2014 [id number] 24 [employer] complet ed anthrax vaccine 08/11/15 Given Ambulat ory Pharmac y ANTHRAX VACCINE, UNSPECIFIED 2014 319 complet ed Lot#: [id number] Mfr: EMERGENT BIOSOLUTI ONS [facility] anthrax vaccine 2 2014 [id number] [employer] [place] (MIP) complet ed anthrax vaccine DoD poliovirus vaccine, inactivated 2014 [id number] 10 Orthera complet ed polioviru s vaccine, inactivat ed 07/13/15 Given Ambulat ory Pharmac y anthrax vaccine 2014 [id number] 24 [employer] complet ed anthrax vaccine 07/13/15 Given Ambulat ory Pharmac y poliovirus vaccine, inactivated 2014 [id number] 10 [employer]ra complet ed polioviru s vaccine, inactivat ed 07/13/15 Given Ambulat ory Pharmac y anthrax vaccine 2014 [id number] 24 [employer] complet ed anthrax vaccine 07/13/15 Given Ambulat ory Pharmac y ANTHRAX VACCINE, UNSPECIFIED 2014 319 complet ed Lot#: [id number] [facility] POLIO, UNSPECIFIED FORMULATION 2014 89 complet ed polioviru s vaccine, inactivat ed Lot#: [id number] [facility] poliovirus vaccine, inactivated 1 2014 [id number] 10 [facility] ([facility]) complet ed polioviru s vaccine, inactivat ed DoD anthrax vaccine 1 2014 [id number] 24 [employer] (MIP) complet ed anthrax vaccine DoD influenza, seasonal, injectable-pf 2014 [id number] 140 CSL Behring complet ed influenza , seasonal, injectabl e-pf 9/13/15 Given Ambulat ory Pharmac y influenza, seasonal, injectable-pf 2014 [id number] 140 [employer] complet ed influenza , seasonal, injectabl e-pf 05/31/15 Given Ambulat ory Pharmac y Influenza, seasonal, injectable, preservative free 1 2014 [id number] 140 [facility] [employer] (CSL) complet ed Influenza , seasonal, injectabl e, preservat fiona free DoD typhoid Vi capsular polysaccharid e vac 2014 [id number] 101 Unknown complet ed typhoid Vi capsular polysacch aride vac 03/01/15 Given Ambulat ory Pharmac y TYPHOID, VICPS 2014 101 complet ed typhoid Vi capsular polysacch aride vac Lot#: [id number] [facility] typhoid Vi capsular polysaccharid e vaccine 1 2014 [id number] 101 Other (OTH) complet ed typhoid Vi capsular polysacch aride vaccine DoD typhoid Vi capsular polysaccharid e vac 2014 [id number] 101 sanofi pasteur complet ed typhoid Vi capsular polysacch aride vac 02/28/15 Given Ambulat ory Pharmac y hepatitis A adult vaccine 2014 [id number] Unknown complet ed hepatitis A adult vaccine 02/28/15 Given Ambulat ory Pharmac y typhoid Vi capsular polysaccharid e vac 2014 [id number] 101 sanofi pasteur complet ed typhoid Vi capsular polysacch aride vac 02/28/15 Given Ambulat ory Pharmac y hepatitis A adult vaccine 2014 [id number] Unknown complet ed hepatitis A adult vaccine 02/28/15 Given Ambulat ory Pharmac y HEP A, ADULT 3 2014 52 complet ed hepatitis A vaccine, adult dosage Lot#: [id number] [facility] hepatitis A vaccine, adult dosage 3 2014 [id number] 52 Other (OTH) complet ed hepatitis A vaccine, adult dosage DoD typhoid Vi capsular polysaccharid e vaccine 1 2014 [id number] 101 Sanofi Pasteur ([facility]) complet ed typhoid Vi capsular polysacch aride vaccine DoD influenza, seasonal, injectable-pf 2013 [id number] 140 Unknown complet ed influenza , seasonal, injectabl e-pf 06/15/14 Given Ambulat ory Pharmac y influenza, seasonal, injectable-pf 2013 [id number] 140 Unknown complet ed influenza , seasonal, injectabl e-pf 06/15/14 Given Ambulat ory Pharmac y Influenza, seasonal, injectable, preservative free 1 2013 [id number] 140 Unknown (UNK) comple t ed Influenza , seasonal, injectabl e, preservat fiona free DoD hepatitis B adult vaccine 2013 [id number] 4AA 43 GlaxoSmithKli ne complet ed hepatitis B adult vaccine 10/26/13 Given Ambulat ory Pharmac y hepatitis B adult vaccine 2013 [id number] 4AA 43 GlaxoSmithKli ne complet ed hepatitis B adult vaccine 10/26/13 Given Ambulat ory Pharmac y HEP B, ADULT 3 2013 43 complet ed hepatitis B vaccine, adult dosage Lot#: [id number] [facility] hepatitis B vaccine, adult dosage 3 2013 [id number] 4AA 43 [facility] (B) complet ed hepatitis B vaccine, adult dosage DoD influenza, seasonal, injectable-pf 2012 [id number] 140 Medimmune Inc comple t ed influenza , seasonal, injectabl e-pf 07/21/13 Given Ambulat ory Pharmac y Influenza, seasonal, injectable, preservative free 1 2012 [id number] 140 MedImmune, Inc. (MED) complet ed Influenza , seasonal, injectabl e, preservat fiona free DoD hepatitis A-hepatitis B vaccine 2011 [id number] 1AA 104 GlaxoSmithKli ne complet ed hepatitis A-hepatit is B vaccine 06/08/12 Given Ambulat ory Pharmac y influenza virus vaccine, live 2011 [id number] 111 Medimmune Inc comple t ed influenza virus vaccine, live 06/08/12 Given Ambulat ory Pharmac y influenza virus vaccine, live 2011 [id number] 111 Medimmune Inc comple t ed influenza virus vaccine, live 06/08/12 Given Ambulat ory Pharmac y hepatitis A-hepatitis B vaccine 2011 [id number] 1AA 104 GlaxoSmithKli ne complet ed hepatitis A-hepatit is B vaccine 06/08/12 Given Ambulat ory Pharmac y hepatitis A-hepatitis B vaccine 2011 [id number] 1AA 104 GlaxoSmithKli ne complet ed hepatitis A-hepatit is B vaccine 06/08/12 Given Ambulat ory Pharmac y HEP A-HEP B 2011 104 complet ed hepatitis A-hepatit is B vaccine Lot#: [id number] Mfr: GLAXOSMIT HKLINE [facility] hepatitis A and hepatitis B vaccine 2 2011 [id number] 1AA 104 [employer] (SKB) complet ed hepatitis A and hepatitis B vaccine [facility] influenza virus vaccine, live, attenuated, for intranasal use 1 2011 [id number] 111 [employer]. (MED) complet ed influenza virus vaccine, live, attenuate d, for intranasa l use DoD adenovirus vaccine, live 2011 [id number] 143 Teva Pharmaceutica ls complet ed adenoviru s vaccine, live 04/06/12 Given Ambulat ory Pharmac y tetanus, diphtheria, acellular pertu is 2011 [id number] 5CA 115 GlaxoSmithKli ne complet ed tetanus, diphtheri a, acellular pertussis 04/06/12 Given Ambulat ory Pharmac y meningococcal A,C,Y,W-135 (MCV4P) 2011 [id number] 114 sanofi pasteur complet ed meningoco ccal A,C,Y,W-1 35 (MCV4P) 04/06/12 Given Ambulat ory Pharmac y poliovirus vaccine, inactivated 2011 H1354 10 sanofi pasteur complet ed polioviru s vaccine, inactivat ed 04/06/12 Given Ambulat ory Pharmac y hepatitis A-hepatitis B vaccine 2011 [id number] 4BA 104 GlaxoSmithKli ne complet ed hepatitis A-hepatit is B vaccine 04/06/12 Given Ambulat ory Pharmac y poliovirus vaccine, inactivated 2011 H1354 10 sanofi pasteur complet ed polioviru s vaccine, inactivat ed 04/06/12 Given Ambulat ory Pharmac y adenovirus vaccine, live 2011 [id number] 9 143 Teva Pharmaceutica ls complet ed adenoviru s vaccine, live 04/06/12 Given Ambulat ory Pharmac y hepatitis A-hepatitis B vaccine 2011 [id number] 4BA 104 GlaxoSmithKli ne complet ed hepatitis A-hepatit is B vaccine 04/06/12 Given Ambulat ory Pharmac y meningococcal A,C,Y,W-135 (MCV4P) 2011 [id number] 114 sanofi pasteur complet ed meningoco ccal A,C,Y,W-1 35 (MCV4P) 04/06/12 Given Ambulat ory Pharmac y tetanus, diphtheria, acellular pertu is 2011 [id number] 5CA 115 GlaxoSmithKli ne complet ed tetanus, diphtheri a, acellular pertussis 04/06/12 Given Ambulat ory Pharmac y hepatitis A-hepatitis B vaccine 2011 [id number] 4BA 104 GlaxoSmithKli ne complet ed hepatitis A-hepatit is B vaccine 04/06/12 Given Ambulat ory Pharmac y ADENOVIRUS TYPES 4 AND 7 1 2011 143 complet ed Adenoviru s, type 4 and type 7, live, oral Lot#: [id number] Mfr: [facility] IES [facility] HEP A-HEP B 2011 104 complet ed hepatitis A-hepatit is B vaccine Lot#: [id number] Mfr: GLAXOSMIT HKLINE [facility] MENINGOCOCCAL MCV4P 1 2011 114 complet ed meningoco ccal polysacch aride (groups A, C, Y and W-135) diphtheri a toxoid conjugate vaccine (MCV4P) Lot#: [id number] Mfr: SANOFI PASTEUR [place] [facility] [employer] POLIO, UNSPECIFIED FORMULATION 2011 89 complet ed polioviru s vaccine, inactivat ed Lot#: [id number] Mfr: SANOFI PASTEUR [facility] measles, mumps and rubella virus vaccine 1 2011 UNK 03 Unknown (UNK) Not Given measles, mumps and rubella virus vaccine DoD poliovirus vaccine, inactivated 1 2011 [id number] 10 Sanofi Pasteur ([facility]) complet ed polioviru s vaccine, inactivat ed DoD varicella virus vaccine 1 2011 UNK 21 Unknown (UNK) Not Given varicella virus vaccine DoD hepatitis A and hepatitis B vaccine 1 2011 [id number] 4BA 104 [employer]line (SKB) complet ed hepatitis A and hepatitis B vaccine DoD meningococcal polysaccharid e (groups A, C, Y and W-135) diphtheria toxoid conjugate vaccine (MCV4P) 1 2011 [id number] 114 Sanofi Pasteur ([facility]) complet ed meningoco ccal polysacch aride (groups A, C, Y and W-135) diphtheri a toxoid conjugate vaccine (MCV4P) DoD tetanus toxoid, reduced diphtheria toxoid, and acellular pertu is vaccine, adsorbed 1 2011 [id number] 5CA 115 SmithKline (SKB) complet ed tetanus toxoid, reduced diphtheri a toxoid, and acellular pertussis vaccine, adsorbed DoD Adenovirus, type 4 and type 7, live, oral 1 2011 [id number] 9 143 [employer] ([facility]) complet ed Adenoviru s, type 4 and type 7, live, oral DoD tuberculin purified protein derivative 2011 [id number] 96 sanofi pasteur complet ed tuberculi n purified protein derivativ e 04/04/12 Given Ambulat ory Pharmac y Results Combined list of recent chemistry, hematology and other laboratory results from Department of Defense and Veterans Affairs, ranging from 15 months to all on record, depending upon the facility. Order Name Results Value Reference Range Date Interpretation Specimen Comments Source Infectio us Disease HIV-1/O/2 Non-Reac tive 1 (01/14/23 9:48 AM) 01/14 N Interpretiv e Data: INTERPRETAT ION: This method is a screening procedure for the detection of HIV p24 Antigen and Antibodies to HIV-1, including Group O, and/or HIV-2. NON-REACTIV E: HIV-1 antigen and HIV-1 / HIV-2 antibodies were not detected. No laboratory evidence of HIV infection. A negative test result does not exclude the possibility of exposure to or infection with HIV. HIV antibodies and/or p24 antigen may be undetectabl e in some stages of the infection and in some clinical conditions. If acute HIV infection is suspected, consider submitting another specimen to a reference laboratory for HIV-1 RNA. SCREEN REACTIVE - CONFIRMATIO N TO FOLLOW: Possible presence of HIV-1antibo dies, HIV-2 antibodies and/or HIV-1 p24 antigen. Specimen will reflex to the confirmatio n testing that fulfills the Center for Disease Control and Prevention' s HIV diagnostic algorithm. Refer to [facility] Lab Guide for additional information : [email or web address] x Testing performed by Oxana jason. [facility] Infectio us Disease HIV Specimen Source? F_FORCE SCREENIN G 01/14 [facility] Miscella neous Sendouts Repository Sample Received (01/14/23 9:48 AM) 01/14 N [facility] Vital Signs Combined list of inpatient and outpatient Vital Signs from Department of Defense and Veterans Affairs, ranging from 12 months to all on record, depending upon the facility. Vital Sign Value Date Comments Source No data available for this section [facility] WEIGHT 187 02/01/2024 13:09:57 [facility] (6[facility]) BMI 33kg/m2 02/01/2024 13:09:57 [facility] ([facility]) WEIGHT 188 01/25/2024 13:37:05 [facility] (6[facility]) BMI 33kg/m2 01/25/2024 13:37:05 [facility] (6[facility]) SYSTOLIC BLOOD PRESSURE 120 01/18/20 24 14:56:33 [facility] DIASTOLIC BLOOD PRESSURE 86 024 14:56:33 [facility] PULSE OXIMETRY 97 01/18/2024 14:56:33 [facility] WEIGHT 188 01/18/2024 14:56:33 [facility] BMI 33kg/m2 01/18/2024 14:56:33 [facility] PAIN 0 01/18/2024 14:56:33 [facility] HEIGHT 63 01/18/2024 14:56:33 [facility] TEMPERATURE 99.3 01/18/2024 14:56:33 [facility] PULSE 91 01/18/2024 14:56:33 [facility] RESPIRATION 16 01/18/2024 14:56:33 [facility] Encounters Combined list of: 1) Encounters from Department of Veterans Affairs facilities going back up to thelast 18 months. 2) Encounters from the Department of Defense facilities going back up to 280 months. Location Location Details Encounter Type Encounter Number Reason For Visit Attending Provider ADM Date DC Date Status Disposition Source [facility] Danny Hammonds [facility] RASHID Nye(IEP Optometry ) OUTPATIENT [id number] KALIEY PALOMINO 04/04 Released w/o Limitations [facility] Danny Hammonds [facility] RASHID Nye(IEP Optomet ry) [facility] Danny Hammonds [facility] RASHID Nye(IEP Hearing Conservat ion Exam) OUTPATIENT [id number] 618 ANDREAS CONNORMarni 04/05 Released w/o Limitations [facility] Danny Hammonds [facility] RASHID Nye(IEP Hearing Conserv ation Exam) [facility] Danny Hammonds [facility] RASHID Nye(IEP Soldiers Initial Entry) OUTPATIENT [id number] NARESH MONTAÑO 04/06 Released w/o Limitations [facility] Danny Hammonds [facility] RASHID Nye(IEP [place] Initial Entry) [facility] Danny Hammonds [facility] RASHID Nye(C-TMC Er Module) OUTPATIENT [id number] JAY LOPEZ 05/04 Released with Work/Duty Limitations [facility] Danny Hammonds [facility] RASHID Nye(C-TM C Er Module) [facility] Danny [facility] RASHID Nye(IEP Soldiers Initial Entry) OUTPATIENT [id number] Notes Entered by: ROSALINA GREEN MY 08 Jun 2012 1333 ------- ------- ------- ------- -- D 3-10 ANURAG DAVIS 06/08 Released w/o Limitations [facility] Danny Hammonds [facility] RASHID Nye(IEP [place] Initial Entry) [place]([facility] Bldg [address]) OUTPATIENT [id number] Notes Entered by: MARC VILLA 13 Jul 2015 1044 ------- ------- ------- ------- -- EILEEN Chester 07/13 Released w/o Limitations [place], [place]([facility] [address]) Theater Facility OUTPATIENT [id number] Theater Provider 11/06 Released with Work/Duty Limitations Theater Facilit [facility] OUTPATIENT [id number] Theater Provider 11/14 Immediate Referral Theater Facilit [facility] OUTPATIENT [id number] Theater Provider 11/14 Released with Work/Duty Limitations Theater Facilit y Theater Facility OUTPATIENT [id number] Theater Provider 12/13 Released with Work/Duty Limitations Theater Facilit y [place] Hearing Conservat ion) OUTPATIENT [id number] Notes Entered by: Nigel GAFFNEY 24 Dec 2015 1024 ------- ------- ------- ------- -- PRE ROSENANE GAFFNEY 12/23 Released w/o Limitations [place]([facility] Hearing Conserv ation) [place]([facility] [address]) OUTPATIENT [id number] Notes Entered by: NORMAN JAIN 24 Dec 2015 1102 ------- ------- ------- ------- -- TRAVIS MATHEWS 12/23 Released w/o Limitations [place]([facility] [address]) [place] [address]) OUTPATIENT [id number] Notes Entered by: DIETER HOFF 25 Dec 2015 0812 ------- ------- ------- ------- -- ANURAG DAVID AM 12/24 Released w/o Limitations [place]([facility] [address] [address]) [facility] Outpatient Encounter [id number] 06/18 [facility] [id number] AMDS Between Visit [id number] 10/24 Discharge Disposition: Home or Self Care 8344R-4 39 AMDS [id number] AMDS Between Visit [id number] 10/24 Discharge Disposition: Home or Self Care 8344R-4 39 AMDS [facility] Outpatient Encounter [id number] [facility] ([facility] HC PRO PHONE CALL 11-20 MIN [phone] [id number] Diagnos is: ICD-10- CM Z59.811 Housing instabi lity, housed, with risk of homeles sness<b r/> [facility] A,ADALBERT O [facility] ([facility] [id number] AMDS Between Visit [id number] 12/17 Discharge Disposition: Home or Self Care 8344R-4 39 AMDS [facility] [facility] Out[facility] Encounter [id number] 12/25 [facility] Outpatient Encounter [id number] 12/28 [facility] Outpatient Encounter [id number] 12/31 [facility] Outpatient Encounter [id number] 01/05 [facility] OFFICE O/P [place] 60 MIN [id number] Diagnos is: ICD-10- CM G43.909 Migrain e, unsp, not intract able, without status migrain osus
ZACKERY SPENCER 01/17 [facility] Out[facility] Encounter [id number] 01/17 [facility] Outpatient Encounter [id number] 01/31 [facility] (6[facility]GE) GROUP BEHAVE COUNS 2-10 [id number] Diagnos is: ICD-10- CM E66.09 Other obesity due to excess calorie s
Roxanne CAMPBELL 01/31 [facility] [place] [facility] Outpatient Encounter [id number] 02/01 [facility] Out[facility] Encounter [id number] 02/05 [facility] Out[facility] Encounter [id number] 04/08 [facility] Procedures Combined list of: 1) Procedures from Department of Veterans Affairs facilities going back up to thelast 18 months, not all VA non-surgical procedures are included; 2) All procedures from the Department of Defense facilities. Procedure Procedure Type Code Date Perfomer Comments Sourc e No data available for this section Ambulato ry Pharmacy IMMUNIZATION ADMINISTRATION BY INTRANASAL OR ORAL ROUTE; 1 VACCINE (SINGLE OR COMBINATION VACCINE/TOXOID) 06/08/20 12 [facility] MENINGOCOCCAL CONJUGATE VACCINE, SEROGROUPS A, C, W, Y, QUADRIVALENT, DIPHTHERIA TOXOID CARRIER (MENACWY-D) OR [id number] CARRIER (MENACWY-CRM), FOR INTRAMUSCULAR USE 04/06/20 12 [facility] AUDIOMETRIC TESTING OF GROUPS 04/05/20 12 [facility] SCREENING TEST OF VISUAL ACUITY, QUANTITATIVE, BILATERAL 04/04/20 12 [facility] AUDIOMETRIC TESTING OF GROUPS 12/24/19 16 [facility] ANTHRAX VACCINE, FOR SUBCUTANEOUS OR INTRAMUSCULAR USE 08/11/20 15 [facility] ANTHRAX VACCINE, FOR SUBCUTANEOUS OR INTRAMUSCULAR USE 07/13/20 15 [facility] Audiometry Group Testing Audiometry Group Testing 39658 12/24/19 16 OLY GAGE [facility] OB Services Antepartum Care Only Subsequent Single Visit OB Services Antepartum Care Only Subsequent Single Visit 0502F 12/14/19 16 Theater Provider [facility] Ultrasound Obstetric Limited Evaluation Ultrasound Obstetric Limited Evaluation 82133 12/14/19 16 [facility] OB Services Antepartum Care Only First Visit, With Report OB Services Antepartum Care Only First Visit, With Report 0500F 11/14/19 16 [facility] Influenza Virus Vaccine Intranasal Live Attenuated 06/08/20 12 [facility] Immunization Admin By Intranasal / Oral Route One Vaccine Immunization Admin By Intranasal / Oral Route One Vaccine 77224 06/08/20 12 [facility] Physician Supervised Injection Intramuscular Physician Supervised Injection Intramuscular 68701 06/08/20 12 [facility] Immunization Administration By Injection, One Vaccine Immunization Administration By Injection, One Vaccine 12464 06/08/20 12 [facility] Immunization Administration By Injection, Each Additional Vaccine 06/08/20 12 [facility] Hepatitis A And Hepatitis B (Intramuscular Use) Adult Dosage Hepatitis A And Hepatitis B (Intramuscular Use) Adult Dosage 20488 06/08/20 12 [facility] Vaccines Adenovirus Type 7 Live, For Oral Use Vaccines Adenovirus Type 7 Live, For Oral Use 62250 04/06/20 12 [facility] Vaccines Adenovirus Type 4 Live, For Oral Use Vaccines Adenovirus Type 4 Live, For Oral Use 04925 04/06/20 12 [facility] Meningococcal (A, C, Y, W-135) Oligosacch Diphtheria Toxoid Conj Vacc 04/06/20 12 [facility] Vaccines Viral Polio, Inactivated Vaccines Viral Polio, Inactivated 96581 04/06/20 12 [facility] Tdap Vaccine Tdap Vaccine 97630 04/06/20 12 [facility] Immunization Administration By Injection, Each Additional Vaccine 04/06/20 12 [facility] Hepatitis A And Hepatitis B (Intramuscular Use) Adult Dosage Hepatitis A And Hepatitis B (Intramuscular Use) Adult Dosage 59604 04/06/20 12 [facility] Physician Supervised Injection Intramuscular Physician Supervised Injection Intramuscular 18688 04/06/20 12 [facility] Immunization Administration By Injection, One Vaccine Immunization Administration By Injection, One Vaccine 51696 04/06/20 12 [facility] Physician Supervised Injection Intramuscular Antibiotic Physician Supervised Injection Intramuscular Antibiotic 90637 04/06/20 12 [facility] Audiometry Group Testing Audiometry Group Testing 96048 04/05/20 12 ANDREAS CONNOR [facility] Screening Test Of Visual Acuity, Quantitative, Bilateral Screening Test Of Visual Acuity, Quantitative, Bilateral 57271 04/04/20 12 KAILEY PALOMINO [facility] Social History Combined list of available smoking, tobacco, and other social history from Department of Defense and Veterans Affairs facilities. Social History Type Response Date Comment Sour e Tobacco smoking status NHIS VA-TOBACCO NEVER USED 01/06/2024 [facility] This section is an empty social history section. [facility] Assessment and Plan Combined list of future care activities from Department of Defense and Veterans Affairs facilities (e.g., assessment and plan notes, appointments, orders, and referrals). Additional future care activities may be listed in the Plan of Care section. Result Assessment and Plan Date Source Assessment and Plan No data available for this section 09/12/2024 Ambulatory Pharmacy Functional Status Combined list of recent functional and cognitive assessments recorded at Department of Defense and [facility] Affairs ([place]VA Functional [place] Measurement (FIM) Scale: 1 = Total Assistance (Subject = 0% +), 2 = Maximal Assistance (Subject = 25% +), 3 = Moderate Assistance (Subject = 50% +), 4 = Minimal Assistance (Subject = 75% +), 5 = Supervision, 6 = Modified [place] (Device), 7 = Complete [place] (Timely, Safely). Assessment Date/Time Source Assessment Type Assessment Skill Assessment Score Assessment Details No data available for this section
--- OUTSIDE RECORDS SUMMARY | 2024-09-12 14:52 | XMS_ITS ---
Author Name [facility] [place] [facility] [place] [place] Address [address] [place] [id number] Care Team Providers Care Specialist Managers Name Role Phone NISHANT SPENCER Primary Care Provider Unavailabl e Selected Encounter This section includes the information on record at [place] for the Encounter. Date/Time Encounter Type Encounter Description Reason Provider Source Nov 16, 2023 03:15 PM HC PRO PHONE CALL 11-20 MIN TELEPHONE [facility]CM[facility] ICD-10-CM Z59.811 Housing instability, housed, with risk of homelessness [facility] Encounter Template Text not used by [place] Assessments - Encounter Diagnoses This section includes the primary and secondary diagnoses documented for the Encounter. Date/Time Primary/Secondary Diagnosis Diagnosis Name Provider Source Nov 16, 2023 03:15 PM PRIMARY Housing instability, housed, with risk of homelessness [facility] SANC[facility] (637GE) Plan of Treatment: Future Appointments (+ 6 months) and Future Tests (+/- 45 days) The Plan of Treatment section includes future care activities for the patient from all [place] treatmentfacilities. This section includes future appointments and future orders which are active, pending or scheduled. Future Appointments This section includes appointments that were scheduled to occur 6 months from the date of the Encounter, up to a maximum of 20 appointments. The data comes from all [place] treatment facilities. Appointment Date/Time Appointment Type Appointme nt Facility Name January 18, 2024 03:00 PM AMBULATORY - MEDICINE [place] [facility] [place] [facility] January 25, 2024 11:00 AM AMBULATORY - NONE [facility] (6[facility]GE) February 01, 2024 11:00 AM AMBULATORY - NONE [facility] (631GE) Encounter Notes: All associated encounter notes This section contains the clinical notes associated to the Encounter. Date/Time Encounter Note(s) Provider Source Nov 16, 2023 03:34 PM HOMELESS PROGRAM N OTE: LOCAL TITLE: HOMELESS CALL CENTER REFERRAL NOTE STANDARD TITLE: HOMELESS PROGRAM NOTE DATE OF NOTE: NOV 16, 2023@15:34 ENTRY DATE: NOV 16, 2023@15:34:36 AUTHOR: CHELE SANHCEZ EXP COSIGNER: URGENCY: STATUS: COMPLETED 1st attempt 11/16/2023 at 9:58am Emergency Dept Tech called number listed in the consult . did not answer. Emergency Dept Tech left vm identifying self, reason for call and contact info requesting a call back 2nd attempt 11/16/2023 at 1:58pm Emergency Dept Tech called number listed in the consult . did not answer. Emergency Dept Tech left identifying self, reason for call and contact info requesting a call back contacted program writer, reported LL wanted her out, received notice to quit. [place] has significant household income with spouse. agreed to CLA referral. provided verbal permission to submit. [place] denied other issues to be addressed in call. encouraged to contact VA provider if further assistance needed. call time 14 minutes Consult Complete. Please Close Consult /luisa/ DELON HARTMANN Market Director [employer] Program Signed: 11/16/2023 15:35 [place]TE SANCHEZ O [facility] ([id number])
--- OUTSIDE RECORDS SUMMARY | 2024-09-12 14:53 | XMS_ITS ---
Author Name [facility] [place] [facility] [place] Address [address] [place] [address] Care Team Providers Care Lean Manufacturing Engineer Name Role Phone NISHANT SPENCER Primary Care Provider Unavailabl e Selected Encounter This section includes the information on record at [place] for the Encounter. Date/Time Encounter Type Encounter Description Reason Pro vider Source February 01, 2024 10:02 AM Outpatient Encounter ADMIN PAT ACTIVTIES (MASNONCT) IHE Encounter Template Text not used by [place] Social History: Smoking Status (Most current) and Tobacco Use (All prior to encounter date) This section includes the most current, and the historical, smoking and tobacco- related health factors from the VA facility where the Encounter took place. Current Smoking Status This section includes the most current smoking, or tobacco-related health factor, from the [place] facility where the Encounter took place. Date/Time Current Smoking Status Comment Facil candida Jan 06, 2024 12:26 PM VA-TOBACCO NEVER USED [place] [facility] [place] [facility] Encounter Notes: All associated encounter notes This section contains the clinical notes associated to the Encounter. Date/Time Encounter Note(s) Provider Source February 01, 2024 10:02 AM REPLACER NOTE: LOCAL TITLE: POST 911 CASE MANAGEMENT SCREENING STANDARD TITLE: REPLACER NOTE DATE OF NOTE: FEBRUARY 01, 2024@10:02 ENTRY DATE: FEBRUARY 01, 2024@10:02:54 AUTHOR: MANDY PALACIO COSIGNER: KUSUM ARMENDARIZ URGENCY: STATUS: COMPLETED Post 11 Case Management Screen Unable to Contact [place] First attempt to contact patient for Post 05/29 Case Management Screen was unsuccessful. Comment: Left an intial VM for the . TW called this to complete a TCM Screen which is part of the TCM national measure. The did not picker/puller the phone, so I left a VM with all my contact information on it. /luisa/ MANDY PALACIO Transitional Patient Advocate Signed: 02/01/2024 10:03 /luisa/ DELON Hartman LICENSED CLINICAL BIOFUELS ENGINEERING MANAGER Cosigned: 02/01/2024 10:10 MANDY PALACIO [place] [facility]
--- OUTSIDE RECORDS SUMMARY | 2024-09-12 14:53 | XMS_ITS ---
Author Name [facility] [place] [facility] [place] [place] [facility] [place] Address [address] [place] [address] Care Team Providers Care Tacker Elastic Band Name Role Phone NISHANT SPENCER Primary Care Provider Unavailabl e Selected Encounter This section includes the information on record at [place] for the Encounter. Date/Time Encounter Type Encounter Description Reason Pro vider Source February 06, 2024 08:08 AM Outpatient Encounter ADMIN PAT ACTIVTIES (MASNONCT) IHE Encounter Template Text not used by [place] Social History: Smoking Status (Most current) and Tobacco Use (All prior to encounter date) This section includes the most current, and the historical, smoking and tobacco- related health factors from the VA facility where the Encounter took place. Current Smoking Status This section includes the most current smoking, or tobacco-related health factor, from the [place] facility where the Encounter took place. Date/Time Current Smoking Status Comment Facil candida Jan 06, 2024 12:26 PM VA-TOBACCO NEVER USED [place] [facility] [place] [facility] Encounter Notes: All associated encounter notes This section contains the clinical notes associated to the Encounter. Date/Time Encounter Note(s) Provider Source February 06, 2024 08:08 AM TAXATION AGENT NOTE: LOCAL TITLE: POST 911 CASE MANAGEMENT SCREENING STANDARD TITLE: TAXATION AGENT NOTE DATE OF NOTE: FEBRUARY 06, 2024@08:08 ENTRY DATE: FEBRUARY 06, 2024@08:08:51 AUTHOR: MANDY PALACIO COSIGNER: KUSUM ARMENDARIZ URGENCY: STATUS: COMPLETED Post 05/29 Case Management Screen Unable to Contact [place] Third and Final attempt to contact patient for Post 05/29 Case Management Screen was unsuccessful. The Outreach Protocol is complete. Comment: Email sent Dear [place], We would like to take this opportunity to welcome you to the [facility] and thank you for your service to our country. The mission of the Post-05/29 2 VA (M2VA) Case Management Program is to offer our assistance and subject matter expertise regarding VA healthcare, services and benefits that you may be eligible for as a Post-05/29 era . The M2VA Team provides combat and non-combat Veterans, current conflict era Veterans, and transitioning service members with resource information, coordination of VA services, and, when needed, individualized case management. At the bottom of this email you will find contact information for the entire M2VA Team as well as a list of helpful contact numbers and website links for resources we believe might be helpful and of interest to you as you begin to navigate the [place] region. Please be sure to scroll down for more! If you require assistance or wish to contact your provider, please call the Call Center at [phone]. For urgent needs, and particularly if a crisis or symptoms lead to thoughts of suicide, the Veterans Crisis Line also offers free, confidential support 24 hours a day, 7 days a week, 365 days a year. The number for the Veterans Crisis [place] is [phone] (Press 1). You can also access the Veterans Crisis Line by text at 013209. For all other emergencies, please call 701 for assistance. Signed with Respect, Admiration & Gratitude for your hard work in hard places, DELON Hartman M2VA Elementary School Reading Teacher/Legger Press Operator Post-05/29 To [place] (M2VA) Case Management Program Formerly known as OEF/OIF/OND and TCM Team [facility] Email: KRYSTIN Oneal Transition Patient Advocate Post-05/29 To [place] (M2VA) Case Management Program Formerly known as OEF/OIF/OND and TCM Team [facility] Office: ext [phone] Email: Appointment Call Center: COVID Vaccine Scheduling: Billing Questions: [place] Benefit Administration: Environmental Exposures Dept: ext [phone] VA WELCOME KIT: Welcome kit simplifies Veterans experience - VA INSIDER Print Out Your VA Welcome Kit [facility] Whole Health Initiative: Whole Health Home (va.gov) Airborne Hazards Open Burn Pit & Environmental Exposures: Many service members have been exposed to environmental toxins during their service and we encourage you to complete the toxic exposure registries that apply to you via the below link. Once you have completed that task, please contact: Lorenza Warren at ext [phone] to schedule your toxic exposure examination. Completion of the online registry is a prerequisite for scheduling a [id number], Phase II physical exam. Scheduling of your adkw-tu-oglj, Phase II Physical Examination does not occur automatically and is a [place]-driven process. You will need to request your Phase II Physical Exam appointment by alerting your with your Primary Care Provider that you have completed the online registry and calling the telephone number listed above for the [place] Environmental Exposure Department. Please be patient as the site has many details. If it should shut down/disconnect, it will save the information provided thus far. If you're having difficulty with any part of the process, please do not hesitate to contact the VA Team and we will advocate on your behalf. Environmental Exposures Online Registry: https://.mobilehealth .[place].gov/AHBurnPitRegistry/#p age/home Local VET CENTER Info: [place] https://www.Vana Workforce.gov/find-loca tions/?facilityType=vet_cent er VA Travel Pay Reimbursement Info: VA Travel Pay Reimbursement [facility] [place] Service Office Pairer Inspector: National: https://nvf.org/-serv ice-officers/ [place]: https://GTV Corporationadvisor.org/ Service Dog Information: Dogs and PTSD - PTSD: National Center for PTSD (va.gov) Service Dog Veterinary Health Benefit - Rehabilitation and Prosthetic Services (va.gov) /luisa/ MANDY PALACIO Transitional Patient Advocate Signed: 02/06/2024 08:09 /es/ DELON Hartman LICENSED CLINICAL TRUSTEE OF ESTATE Cosigned: 02/06/2024 15:12 MANDY PALACIO [facility]
--- OUTSIDE RECORDS SUMMARY | 2024-09-12 14:53 | XMS_ITS ---
Author Name [facility] of [facility] ([place]) Organization [facility] [place] Address [address] [place] [address] Care Team Providers Care Bowling Alley Manager Name Role Phone NISHANT SPENCER Primary Care Provider Unavailabl e Selected Encounter This section includes the information on record at MD for the Encounter. Date/Time Encounter Type Encounter Description Reason Provider Source January 18, 2024 03:00 PM OFFICE O/P NEW [place] 60 MIN PRIMARY CARE/MEDICINE ICD-10-CM G43.909 Migraine, unsp, not intractable, without status migrainosus FURCOLO,NISHANT IHE Encounter Template Text not used by MD Assessments - Encounter Diagnoses This section includes the primary and secondary diagnoses documented for the Encounter. Date/Time Primary/Secondary Diagnosis Diagnosis Name Provider Source January 18, 2024 04:04 PM PRIMARY Migraine, unsp, not intractable, without status migrainosus FURCOLO,NISHANT [facility] [place] [facility] January 18, 2024 04:04 PM SECONDARY Benign neoplasm of pituitary gland FURCOLO,NISHANT [facility] [place] [facility] January 18, 2024 04:04 PM SECONDARY Metatarsalgia, unspecified foot FURCOLO,NISHANT [facility] [place] [facility] January 18, 2024 04:04 PM SECONDARY Peripartum cardiomyopathy FURCOLO,NISHANT [facility] [place] [facility] January 18, 2024 04:04 PM SECONDARY Rash and other nonspecific skin eruption FURCOLO,NISHANT [facility] [place] [facility] Plan of Treatment: Future Appointments (+ 6 months) and Future Tests (+/- 45 days) The Plan of Treatment section includes future care activities for the patient from all MD treatmentfacilities. This section includes future appointments and future orders which are active, pending or scheduled. Future Appointments This section includes appointments that were scheduled to occur 6 months from the date of the Encounter, up to a maximum of 20 appointments. The data comes from all MD treatment facilities. Appointment Date/Time Appointment Type Appointme nt Facility Name January 25, 2024 11:00 AM AMBULATORY - NONE [facility] ([id number]) February 01, 2024 11:00 AM AMBULATORY - NONE [facility] ([id number]) Vital Signs: All taken on the encounter date This section contains inpatient and outpatient Vital Signs collected on the date of the Encounter. Date/Time Temperature Pulse Blood Pressure Respiratory Rate SP02 Pain Height Weight Body Mass Index Source January 18, 2024 02:56 PM 99.3 91 120/86 16 97 0 63 188 [facility] Social History: Smoking Status (Most current) and Tobacco Use (All prior to encounter date) This section includes the most current, and the historical, smoking and tobacco- related health factors from the MD facility where the Encounter took place. Current Smoking Status This section includes the most current smoking, or tobacco-related health factor, from the MD facility where the Encounter took place. Date/Time Current Smoking Status Comment Facil ity Jan 06, 2024 12:26 PM VA-TOBACCO NEVER USED [facility] [employer] [facility] Encounter Notes: All associated encounter notes This section contains the clinical notes associated to the Encounter. Date/Time Encounter Note(s) Provider Source January 18, 2024 03:08 PM PHYSICIAN NOTE: LOCAL TITLE: MD NOTE STANDARD TITLE: PHYSICIAN NOTE DATE OF NOTE: JANUARY 18, 2024@15:08 ENTRY DATE: JANUARY 18, 2024@15:08:40 AUTHOR: NISHANT SPENCER EXP COSIGNER: URGENCY: STATUS: GABE WILLETT is a 33 year old OR OTHER FEMALE who is being seen today in primary care to establish care. === CARE TEAM === [facility] Primary Care Provider: Beronica CHOWDARY - PCP General Work Place: [address] [place] Tel: MD Specialists: Community Specialists: Dr. Rc Westbrook- Contract Attorney [address] [place] [address] Dr DE LEÓN, [place] [address] Ob[address]- [address] 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 Migraine- very rare- happens with eye strain 2. Pituitary adenoma 3. Metatarsalgia 4. Rash Facial Rash 5. cardiomyopathy === PAST SURGICAL HISTORY === tubal ligation 2017 tubes in ears, tonsillectomy === FAMILY HISTORY === Mother: hypothyroidism Father: hypothyrodism, high cholesterol Siblings: 1 brother- bipolar, depression MGM- DM, some brain disease no known cancers === SOCIAL HISTORY === Background: born and raised in [place], raised in [place]. 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 Fioricet 50mg/300mg/40mg/30mg 1 Cap by mouth every 4-6 hrs as needed for headaches 2. Lo loestin Fe 1mg/10mcg by mouth Daily- Pituitry Adenoma was on bromocriptine with pituitary adenoma === REVIEW OF SYMPTOMS === POSITIVE FOR: none NEGATIVE FOR: CONSTITUTION: no weight loss/gain, fatigue, fevers, night sweats HEENT: no vision problems, hearing loss,swallowing difficulties, sinus pain CV: no chest pain, palpitations, dyspnea on exertion, orthopnea RESP: no cough, shortness of breath, wheezing BREAST: no breast pain, nipple discharge GI: no abdominal pain, N/V/D, constipation, blood in stool, normal appetite : no urinary frequency, nocturia, hematuria, vaginal discharge or bleeding MUSC: no joint pain, joint swelling, muscle aches NEURO: no headaches, dizziness, memory loss, tremor, weakness PSYCH: no depression, anxiety, suicidal or homicidal thoughts SKIN: no rash, new skin lesions === PHYSICAL EXAM === Vitals: - - - - - - - B/P: 120/86 (01/18/2024 14:56) pulse: 91 (01/18/2024 14:56) resp: 16 (01/18/2024 14:56) temp: 99.3 F [37.4 C] (01/18/2024 14:56) Ht: 63 in [160.0 cm] (01/18/2024 14:56) Wgt: 188 lb [85.28 kg] (01/18/2024 14:56) BMI: BMI: 33.4 Exam: - - - - - - - General: A&O x 3, no acute distress, normal affect and mood Neck: normal thyroid, normal carotids- no bruits CV: RRR S1S2, no murmur Resp: LCTA bilat, no wheezing, rales or rhonchi Neuro: grossly intact, no visible tremor, normal memory and speech Extremities: normal movement of extremities, normal gait, normal strength no LE edema === RECENT LABS === gets through [facility] === ASSESSMENT AND PLAN === Active problems - Computerized Problem List is the source for the followin. Migraine- rare, has used fioricet only springly and was effective 2. Pituitary adenoma- sees Dr. Westbrook at [facility]. was on bromocriptine for awhile, but stopped under guidance of endo. on ocp Lo-estrine- Fe- which is quite expensive. discussed having endo/ob switch to hormone only and buying the low dose fe separately. 3. Metatarsalgia 4. Rash Facial Rash 5. cardiomyopathy - 2017, did see cardiologya nd was on medicatiosn for a period of time- maybe 6-12 months and heart function was restored to normal and no longer on medications === HEALTH MAINTENANCE === Colonoscopy (due at age 46) Mammogram: due: age 41 Pap Smear: due: 12/2028 Last done: 12/26/23- [facility] - normal , -HPV 5 year frequency Tetanus: due every 10 years Pneumonia Vacccine: Flu Vaccine: due yearly Covid Vaccine: due yearly === FOLLOW UP === f/u in 1 year VISIT TYPE: a HIGH complexity visit where over 60 minutes was spent in direct patient care, review of records and documentation. 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 The [place]/caregiver was informed that we will continue to ask this screening question every 5 years. They can contact their provider/healthcare team if they have concerns about exposures and would like to be screened sooner. Printed information was offered and provided if desired. Cervical Cancer Screening: The patient has had a documented normal Pap smear completed previously. Location: Outside Healthcare Provider Date: December 26, 2023 Comment: evelio Wade Changed Pap smear screening frequency to every 5 years. Comment: normal PAPs for >10 years Screen for Embedded Fragments: SCREEN FOR EMBEDDED FRAGMENTS The patient reports no embedded fragments. /Intentions/Contra ception: The patient is medically unable to conceive. Medical Reason: Permanent female sterilization- tubal ligation 2018 /luisa/ NISHANT SPENCER D.O. PHYSICIAN Signed: 01/18/2024 16:04 NISHANT SPENCER [facility] January 18, 2024 03:06 PM PREVENTIVE MEDICIN E NURSING NOTE: LOCAL TITLE: CLINICAL REMINDERS/NURSING STANDARD TITLE: PREVENTIVE MEDICINE NURSING NOTE DATE OF NOTE: JANUARY 18, 2024@15:06 ENTRY DATE: JANUARY 18, 2024@15:06:09 AUTHOR: VINICIO GROVE EXP COSIGNER: URGENCY: STATUS: COMPLETED BMI>30/>24.99 High Risk: At this visit, the health risks of obesity were reviewed and discussed with the , and the benefits of a weight management treatment program, such as MOVE! was discussed and offered to the [place]. After discussing the health risks of being overweight or obese and providing information about available weight management treatment, the agreed to participate in the MOVE program and referral to the [facility] MOVE program was made. If MOVE program not availble, referred to Nutrition. /luisa/ VINICIO GROVE LPN License Practical Nurse Signed: 01/18/2024 15:13 VINICIO GROVE [facility]
--- OUTSIDE RECORDS SUMMARY | 2024-09-12 14:53 | XMS_ITS | Encounter Summary ---
Author Name Department [place] Organization [place] Address [address] [place] [address] Care Team Providers Care Powerhouse Attendant Name Role Phone NISHANT SPENCER Primary Care Provider Unavailabl e Selected Encounter This section includes the information on record at [place] for the Encounter. Date/Time Encounter Type Encounter Description Reason Pro vider Source Dec 26, 2023 12:00 AM Outpatient Encounter EVENT (HISTORICAL) IHE Encounter Template Text not used by [place] Plan of Treatment: Future Appointments (+ 6 months) and Future Tests (+/- 45 days) The Plan of Treatment section includes future care activities for the patient from all [place] treatmentfacilities. This section includes future appointments and future orders which are active, pending or scheduled. Future Appointments This section includes appointments that were scheduled to occur 6 months from the date of the Encounter, up to a maximum of 20 appointments. The data comes from all [place] treatment facilities. Appointment Date/Time Appointment Type Appointme nt Facility Name January 18, 2024 03:00 PM [facility]UL[facility] - [place]ICINE [place] [facility] January 25, 2024 11:00 AM AMBULATORY - NONE [facility] ([id number]) February 01, 2024 11:00 AM AMBULATORY - NONE [facility] ([id number])
--- OUTSIDE RECORDS SUMMARY | 2024-09-12 14:53 | XMS_ITS | Encounter Summary ---
Author Name Department of [place] Organization [place] Address [address] [place] [id number] Care Team Providers Care City Driver Name Role Phone NISHANT SPENCER Primary Care Provider Unavailnorm e Selected Encounter This section includes the information on record at [place] for the Encounter. Date/Time Encounter Type Encounter Description Reason Provider Source February 01, 2024 11:00 AM GROUP BEHAVE COUNS 2-10 WEIGHT MGMT & MOVE! PROG - GRP ICD-10-CM E66.09 Other obesity due to excess calories [facility] Encounter Template Text not used by [place] Assessments - Encounter Diagnoses This section includes the primary and secondary diagnoses documented for the Encounter. Date/Time Primary/Secondary Diagnosis Diagnosis Name Provider Source February 01, 2024 04:09 PM PRIMARY Other obesity due to excess calories [facility] ([id number]) February 01, 2024 04:09 PM SECONDARY Body mass index [BMI] 33.0-33.9, adult [facility] ([id number]) Vital Signs: All taken on the encounter date This section contains inpatient and outpatient Vital Signs collected on the date of the Encounter. Date/Time Temperature Pulse Blood Pressure Respiratory Rate SP02 Pain Height Weight Body Mass Index Source February 01, 2024 01:09 PM 187 33 [facility] ([id number]) Encounter Notes: All associated encounter notes This section contains the clinical notes associated to the Encounter. Date/Time Encounter Note(s) Provider Source February 01, 2024 11:00 AM MOVE NOTE: LOCAL TITLE: WEIGHT MANAGEMENT/MOVE! OUTPATIENT GROUP NOTE STANDARD TITLE: MOVE NOTE DATE OF NOTE: FEBRUARY 01, 2024@11:00 ENTRY DATE: FEBRUARY 01, 2024@16:20:04 AUTHOR: WILDA CAMPBELL COSIGNER: URGENCY: STATUS: COMPLETED Veterans participated in MOVE! Group Counseling via [facility] on: 02/01/2024 The [place] was provided with information on [facility] and has given verbal consent to use group VVC services for their healthcare. The copy of the Group Telehealth Agreement has been mailed to the [place]. The [place]'s location/emergency contact number were confirmed. The Emergency Call Relay Center ([phone]) was available. The visit was locked for security and privacy. identified with 2 identifiers: [x] Full Name [x] Address Veterans attended the 60-minute MOVE! group session on this date via VVC or by phone. MOVE! is a program designed to provide education about weight management skills to overweight and obese veterans. Group members submitted their stated weights to the group facilitators. The group facilitators began the session by reviewing the previous weeks topic (Orientation). Participants were asked to share their respective progress toward achieving their respective goals and to share their experiences with keeping a food and physical activity log over the past week. Positive feedback was given to the Veterans for their efforts. Session #2 (Tracking What You Do) was then conducted using the MOVE! [place] Workbook and additional handouts. Education was provided on Stoplight foods. Intake of Red light foods (foods high in fat/sugar and low in nutrients) were discouraged, Yellow light foods were encouraged in moderation and Green light foods (foods low in calories but high in nutrients) were highly encouraged. The importance of self-monitoring or tracking dietary intake and physical activity throughout the MOVE! Program was covered. The MOVE! Food and Physical Activity Log was reviewed, and Veterans learned how to complete the various sections. Finally, the use of rewards to celebrate successes was discussed. The objective accomplished at todays session were: 1. Describe the purpose of tracking. 2. Assist Veterans in tracking what they eat and drink. 3. Assist Veterans in tracking their activity. 4. Introduce basic dietary recommendations for weight loss and health Additional Materials Provided by Mail Prior to Class: Stoplight (Red, Yellow, Green Light) Foods Participants were asked to set one healthy eating and physical activity goal to work on this week, continue recording weight daily, to log all food and beverages consumed daily, and to also log all physical activities daily. They were instructed to continue to bring their completed Food and Physical Activity Logs to every session. Next Move session: 02/01/24 Today's Weight: 187 lb Weight Down -1.0 lb from last visit Dx: Obesity E66.09, Z68.33 /es/ WILDA CAMPBELL REGISTERED DIETITIAN Signed: 02/01/2024 16:35 WILDA CAMPBELL [facility] ([id number])
--- OUTSIDE RECORDS SUMMARY | 2024-09-12 14:53 | XMS_ITS ---
Author Name Department of [place] Organization [place] Address [address] [place] [id number] Care Team Providers Care Food Processing Chemist Name Role Phone ANTHONYEFRANISHANT KING Primary Care Provider Unavailabl e Selected Encounter This section includes the information on record at [place] for the Encounter. Date/Time Encounter Type Encounter Description Reason Pro vider Source January 18, 2024 03:49 PM Outpatient Encounter PRIMARY CARE/MEDICINE IHE Encounter Template [...] 25, 2024 11:00 AM AMBULATORY - NONE [facility] ([id number]) February 01, 2024 11:00 AM AMBULATORY - NONE [facility] (6[facility]) Vital Signs: All taken on the encounter date This section contains inpatient and outpatient Vital Signs collected on the date of the Encounter. Date/Time Temperature Pulse Blood Pressure Respiratory Rate SP02 Pain Height Weight Body Mass Index Source January 18, 2024 02:56 PM 99.3 91 120/86 16 97 0 63 188 33 [facility] [place] [facility] Social History: Smoking Status (Most current) and Tobacco Use (All prior to encounter date) This section includes the most current, and the historical, smoking and tobacco- related health factors from the [place] facility where the Encounter took place. Current Smoking Status This section includes the most current smoking, or tobacco-related health factor, from the [place] facility where the Encounter took place. Date/Time Current Smoking Status Comment Facil ity Jan 06, 2024 12:26 PM VA-TOBACCO NEVER USED [facility] [place] [facility] Encounter Notes: All associated encounter notes This section contains the clinical notes associated to the Encounter. Date/Time Encounter Note(s) Provider Source January 21, 2024 02:02 PM ADDENDUM: LOCAL TITLE: Addendum STANDARD TITLE: ADDENDUM DATE OF NOTE: JANUARY 21, 2024@14:02:03 ENTRY DATE: JANUARY 21, 2024@14:02:04 AUTHOR: MONIE MELENDEZ COSIGNER: URGENCY: STATUS: COMPLETED Please let vet know we do not have a female primary care provider regulary in [place]. She can either stay in [place] or can see a male provider in [place] and have WH exams in [facility] or locally at [place] through [facility] care. /luisa/ MONIE MELENDEZ NP NURSE PRACTITIONER Signed: 01/21/2024 14:03 Receipt Acknowledged By: 02/07/2024 11:36 /luisa/ ELEANOR WILKINSON LEAD MAINTENANCE FOREMAN === --- Original Document --- 01/18/24 ADMINISTRATIVE NOTE: [place] is requesting a new primary care provider. Form has been completed with . Veterans current provider:TJ is requesting...PO PCP-PREFERS WOMEN [ ] Review of my opioid medication treatment [ ] New provider in the same location [X} New primary care provider at a new location [ ] NHM [X} POPC [ ] GOPC [ ] WOPC [ ] FOPC /es/ NICHOLE MAR Signed: 01/18/2024 15:51 Receipt Acknowledged By: 01/21/2024 14:01 /chika MELENDEZ NP NURSE PRACTITIONER 02/07/2024 ADDENDUM STATUS: UNSIGNED You may not VIEW this UNSIGNED Addendum. MONIE MELENDEZ [facility] January 18, 2024 03:49 PM ADMINISTRATIVE NOTE: LOCAL TITLE: ADMINISTRATIVE NOTE STANDARD TITLE: ADMINISTRATIVE NOTE DATE OF NOTE: JANUARY 18, 2024@15:49 ENTRY DATE: JANUARY 18, 2024@15:50:07 AUTHOR: NICHOLE YAP EXP COSIGNER: URGENCY: STATUS: COMPLETED ADMINISTRATIVE NOTE Has ADDENDA is requesting a new primary care provider. Form has been completed with . Veterans current provider:TJ is requesting...PO PCP-PREFERS WOMEN [ ] Review of my opioid medication treatment [ ] New provider in the same location [X} New primary care provider at a new location [ ] [place] [X} POPC [ ] GOPC [ ] WOPC [ ] FOPC /luisa/ NICHOLE MAR Signed: 01/18/2024 15:51 Receipt Acknowledged By: 01/21/2024 14:01 /chika MELENDEZ NP NURSE PRACTITIONER 01/21/2024 ADDENDUM STATUS: COMPLETED Please let vet know we do not have a female primary care provider regulary in [place]. She can either stay in [place] or can see a male provider in [place] and have WH exams in [facility] or locally at [place] through community care. /chika MELENDEZ NP NURSE PRACTITIONER Signed: 01/21/2024 14:03 Receipt Acknowledged By: 02/07/2024 11:36 /chika WILKINSON LEAD MAINTENANCE FOREMAN 02/07/2024 ADDENDUM STATUS: COMPLETED called and left vm with call back information. /chika WILKINSON LEAD MAINTENANCE FOREMAN Signed: 02/07/2024 11:37 NICHOLE YAP [facility]
--- OUTSIDE RECORDS SUMMARY | 2024-09-12 14:53 | XMS_ITS ---
Author Name [place] Organization [place] Address [address] [place] [address] Care Team Providers Care Property Insurance Inspector Name Role Phone NISHANT SPENCER Primary Care Provider Unavailabl e Selected Encounter This section includes the information on record at [place] for the Encounter. Date/Time Encounter Type Encounter Description Reason Pro vider Source Apr 08, 2024 09:50 AM Outpatient Encounter WEIGHT MGMT & MOVE! PROG - GRP IHE Encounter Template Text not used by [place] Social History: Smoking Status (Most current) and Tobacco Use (All prior to encounter date) This section includes the most current, and the historical, smoking and tobacco- related health factors from the [place] facility where the Encounter took place. Current Smoking Status This section includes the most current smoking, or tobacco-related health factor, from the [place] facility where the Encounter took place. Date/Time Current Smoking Status Comment Pattie tirado Jan 06, 2024 12:26 PM VA-TOBACCO NEVER USED [facility] [place] [facility] Encounter Notes: All associated encounter notes This section contains the clinical notes associated to the Encounter. Date/Time Encounter Note(s) Provider Source Apr 08, 2024 09:50 AM TELEPHONE ENCOUNTE R NOTE: LOCAL TITLE: TELEPHONE NOTE/SPECIALTY CLINIC STANDARD TITLE: TELEPHONE ENCOUNTER NOTE DATE OF NOTE: APR 08, 2024@09:50 ENTRY DATE: APR 08, 2024@09:50:41 AUTHOR: ALEX ALONZO COSIGNER: URGENCY: STATUS: COMPLETED TELEPHONE NOTE/SPECIALTY CLINIC Has ADDENDA [place] called stating that she is in the process of moving and going back to school. She will not be able to make her next MOVE appt but would like to have someone get in touch with her regarding this. Cell phone in chart confirmed. /chika ALONZO ADVANCED TECHNICAL SALES CONSULTANT Signed: 04/08/2024 09:52 Receipt Acknowledged By: 04/08/2024 11:39 /chika JOSEPH Registered Dietitian 04/08/2024 ADDENDUM STATUS: COMPLETED T/c placed to the [place]. A HIPPA-compliant voice message was left requesting a call back. Contact info provided. /chika JOSEPH Registered Dietitian Signed: 04/08/2024 11:39 04/08/2024 ADDENDUM STATUS: COMPLETED Spoke with pt. She states she cannot attend MOVE classes right now and will reach out next summer. has this RDs contact info. /chika JOSEPH Registered Dietitian Signed: 04/08/2024 11:55 ALEX ALONZO [facility] ([facility])
--- OUTSIDE RECORDS SUMMARY | 2024-09-12 14:53 | XMS_ITS ---
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 Date/Time Encounter Type Encounter Description Reason Pro vider Source February 02, 2024 02:18 PM Outpatient Encounter ADMIN PAT ACTIVTIES (MASNONCT) [facility] Encounter Template Text not used by [facility] Social History: Smoking Status (Most current) and Tobacco Use (All prior to encounter date) This section includes the most current, and the historical, smoking and tobacco- related health factors from the [facility]. Current Smoking Status This section includes the most current smoking, or tobacco-related health factor, from the [facility] facility where the Encounter took place. Date/Time Current Smoking Status Comment Facil [facility] Jan 06, 2024 12:26 PM VA-TOBACCO NEVER USED [facility] [place] [facility] Encounter Notes: All associated encounter notes This section contains the clinical notes associated to the Encounter. Date/Time Encounter Note(s) Provider Source February 02, 2024 02:18 PM DIETETICS DIRECTOR NOTE: LOCAL TITLE: POST 911 CASE MANAGEMENT SCREENING STANDARD TITLE: DIETETICS DIRECTOR NOTE DATE OF NOTE: FEBRUARY 02, 2024@14:18 ENTRY DATE: FEBRUARY 02, 2024@14:18:12 AUTHOR: MANDY PALACIO COSIGNER: KUSUM ARMENDARIZ URGENCY: STATUS: COMPLETED Post 05/29 Case Management Screen Unable to Contact [place] Second attempt to contact patient for Post 05/29 Case Management Screen was unsuccessful. Comment: Second VM left for the . TW called this to complete a TCM Screen which is part of the TCM national measure. The did not picking machine operator helper the phone, so I left a VM with all my contact information on it. /luisa/ MANDY PALACIO Transitional Patient Advocate Signed: 02/02/2024 14:18 /luisa/ DELON Hartman LICENSED CLINICAL EXHIBITIONS AND COLLECTIONS MANAGER Cosigned: 02/02/2024 16:39 MANDY PALACIO [facility]
== END 2024-09-12 15:19 | disposition home or self-care (01) ==
PROVIDERS: PCP Physician Assistant; Visit Provider Internal Medicine Endocrinology, Diabetes & Metabolism
DX: D35.2 Benign neoplasm of pituitary gland (principal)
CPT/HCPCS: 99213

== ENCOUNTER 2024-10-18 09:48 | Outpatient (REF) | payer BC, SELFPAY ==
--- OUTSIDE RECORDS SUMMARY | 2024-10-18 10:28 | XMS_ITS | Continuity of Care Document ---
Author Name 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 Name Role Phone [facility] Unavailable Unavailable Problems Combined list of problems [...] upper respiratory infection Inactive 11/06/19 16 Condition [facility] ASSESSMENT, PRE-DEPLOYMENT, [place]ED [place] FO7861 Active Condition DoD Need For Vaccination Against [...] for: examination of subpopulation Active Condition DoD Metatarsalgia Active Condition [facility] Migraine Active Condition [facility] Pituitary adenoma Active Condition [facility] cardiomyopathy Active Condition [facility] Rash Active Condition Jan 06, 2024 Entered By: MICA FRANCO Comment: Facial Rash [facility] Diagnosis: ICD-10-CM E66.09 Other obesity due to excess calories Active Diagnosis [facility] ([facility]) Diagnosis: ICD-10-CM G43.909 Migraine, unsp, not intractable, without status migrainosus Active Diagnosis [facility] Diagnosis: ICD-10-CM Z59.811 Housing instability, housed, with risk of homelessness Active Diagnosis [facility] (631GE) Medications Combined list of outpatient medications from [...] ACTAVIS PHARMA,, 100 ea. BOTTLE Cancele d [id number] : 2023 0 Pharmac y Data Transac tion Service Facilit y BUTALB-ACET AMINOPH-CAF F-CODEIN (BUTALBIT/A CETAMIN/CAF F/CODEINE), 50-300-30, CAPSULE, ORAL, ACTAVIS PHARMA,, 100 ea. BOTTLE Active [id number] 4 2023 10 Pharmac y Data Transac tion Service Facilit y BUTALB-ACET AMINOPH-CAF F-CODEIN (BUTALBIT/A CETAMIN/CAF F/CODEINE), 50-300-30, CAPSULE, ORAL, ACTAVIS PHARMA,, 100 ea. BOTTLE Cancele d [id number] : 2023 0 Pharmac y Data Transac tion Service Facilit y ESTRADIOL (estradiol) , 0.01 %, CREAM/APPL, VAGINAL, TEVA [place], 42.5 g TUBE Cancele d [id number] : 2023 0 Pharmac y Data Transac tion Service Facilit y ESTRADIOL (estradiol) , 0.01 %, CREAM/APPL, VAGINAL, TEVA [place], 42.5 g TUBE Active [id number] 01/11/20 2 4 2023 42.5 Pharmac y Data Transac tion Service Facilit y LO LOESTRIN FE (norethindr one acetate-eth inyl estradiol/f errous fumarate), 1MG-10(24), TABLET, ORAL, ACTAVIS/ALL ERGA, 28 ea. BLIST PACK Cancele d [id number] : 04/26/ 2024 0 Pharmac y Data Transac tion Service Facilit y LO LOESTRIN FE (norethindr one acetate-eth inyl estradiol/f errous fumarate), 1MG-10(24), TABLET, ORAL, ACTAVIS/ALL ERGA, 28 ea. BLIST PACK Cancele d [id number] : 2023 0 Pharmac y Data Transac tion Service Facilit y TRIAMCINOLO NE ACETONIDE (triamcinol one acetonide), 0.1 %, OINT. (G), TOPICAL, TARO PHARM [place], 30 g TUBE Active [id number] 4 2023 30 Pharmac y Data Transac tion Service Facilit y Allergies, Adverse Reactions, Alerts Combined list of allergies from Department of Defense and Veterans Affairs facilities. It does not include entries that were removed or entered in error. Substance Category Reaction Severity Reaction type Status Date Reported Comments Source No Known Allergies Drug allergy (disorder) active 05/04/2012 [place], [place] Immunizations Combined list of available immunizations from the Department of Defense and Veterans Affairs facilities. 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 (MOD) Not Given COVID-19, mRNA, LNP-S, PF, 100 mcg or 50 mcg dose [facility] COVID-19 (MODERNA), MRNA, LNP-S, PF, 100 MCG/0.5ML DOSE OR 50 MCG/0.25ML DOSE 2020 207 complet ed [id number] .2mg/mL INTRAMUSC ULAR INJECTION , SUSPENSIO N (Moderna COVID-19 Vaccine) Mfr: MODERNA US, INC. [place] [facility] [place] [facility] Influenza, inj, MDCK, quadrivalent- pf 09/15/ 2021 171 Seqirus complet ed Influenza , inj, MDCK, quadrival ent-pf 06/02/21 Given Ambulat ory Pharmac y Influenza, injectable, MDCK, preservative free, quadrivalent 2020 [place], () Not Given Influenza , injectabl e, MDCK, preservat fiona free, quadrival ent DoD COVID Vaccine Moderna 2020 [id number] 207 complet ed COVID Vaccine Moderna 11/22/20 Given Ambulat ory Pharmac y COVID-19 (MODERNA), MRNA, LNP-S, PF, 100 MCG/0.5ML DOSE OR 50 MCG/0.25ML DOSE 2020 207 complet ed COVID Vaccine Moderna Mfr: MODERNA [employer]gel. [place] [facility] [employer]se[employer] [facility] COVID-19 (MODERNA), MRNA, LNP-S, PF, 100 MCG/0.5ML DOSE OR 50 MCG/0.25ML DOSE 1 2020 207 complet ed Covid Card Lot#: [id number] Mfr: MODERNA [employer]. [place] [facility] [employer] [facility] influenza virus vaccine, inactivated 2019 88 complet ed influenza virus vaccine, inactivat ed 07/28/20 Given Ambulat ory Pharmac y influenza, recombinant, quadrivalent, injectable, preservative free 2019 [place], () Not Given influenza , recombina nt, quadrival ent,injec table, preservat fiona free [facility] influenza, seasonal, injectable-pf 2019 [id number] 140 complet ed influenza , seasonal, injectabl e-pf 06/28/20 Given Ambulat ory Pharmac y influenza virus vaccine, inactivated 2018 [id number] Unknown complet ed influenza virus vaccine, inactivat ed 06/20/19 Given Ambulat ory Pharmac y influenza, injectable, quadrivalent- pf 2018 [id number] 150 Seqirus complet ed influenza , injectabl e, quadrival ent-pf 09/30/18 Given Ambulat ory Pharmac y tetanus, diphtheria, acellular pertu is 2015 [id number] 115 complet ed tetanus, diphtheri a, acellular pertussis 05/05/16 Given Ambulat ory Pharmac y TDAP 2015 115 complet ed tetanus, diphtheri a, acellular pertussis Lot#: [id number] [facility] anthrax vaccine 2014 [id number] 24 Emer[employer] complet ed anthrax vaccine 08/11/15 Given Ambulat ory Pharmac y anthrax vaccine 2014 [id number] 24 [employer] complet ed anthrax vaccine 08/11/15 Given Ambulat ory Pharmac y anthrax vaccine 2 2014 [id number] Emergent [employer] [place] (MIP) complet ed anthrax vaccine DoD ANTHRAX VACCINE, UNSPECIFIED 2014 319 complet ed Lot#: [id number] Mfr: EMERGENT BIOSOLUTI ONS [facility] poliovirus vaccine, inactivated 2014 [id number] 10 [employer] complet ed polioviru s vaccine, inactivat ed 07/13/15 Given Ambulat ory Pharmac y anthrax vaccine 2014 [id number] 24 [employer] complet ed anthrax vaccine 07/13/15 Given Ambulat ory Pharmac y poliovirus vaccine, inactivated 2014 [id number] 10 [employer] complet ed polioviru s vaccine, inactivat ed 07/13/15 Given Ambulat ory Pharmac y anthrax vaccine 2014 [id number] 24 [employer] complet ed anthrax vaccine 07/13/15 Given Ambulat ory Pharmac y poliovirus vaccine, inactivated 1 2014 [id number] 10 [facility] ([facility]) complet ed polioviru s vaccine, inactivat ed DoD anthrax vaccine 1 2014 [id number] 24 [employer] Lance ([facility]) complet ed anthrax vaccine DoD ANTHRAX VACCINE, UNSPECIFIED 2014 319 complet ed Lot#: [id number] [facility] POLIO, UNSPECIFIED FORMULATION 2014 89 complet ed polioviru s vaccine, inactivat ed Lot#: [id number] [facility] influenza, seasonal, injectable-pf 2014 [id number] 140 CSL Behring complet ed influenza , seasonal, injectabl e-pf 9/13/15 Given Ambulat ory Pharmac y influenza, seasonal, injectable-pf 2014 [id number] 140 CSL Behring complet ed influenza , seasonal, injectabl e-pf 05/31/15 Given Ambulat ory Pharmac y Influenza, seasonal, injectable, preservative free 1 2014 [id number] 140 [facility] [employer]. (CS) complet ed Influenza , seasonal, injectabl e, preservat fiona free DoD typhoid Vi capsular polysaccharid e vac 2014 [id number] 101 Unknown complet ed typhoid Vi capsular polysacch aride vac 03/01/15 Given Ambulat ory Pharmac y typhoid Vi capsular polysaccharid e vaccine 1 2014 [id number] 101 Other (OTH) complet ed typhoid Vi capsular polysacch aride vaccine DoD TYPHOID, VICPS 2014 101 complet ed typhoid Vi capsular polysacch aride vac Lot#: [id number] [facility] typhoid Vi capsular polysaccharid e vac 2014 [...] vaccine 02/28/15 Given Ambulat ory Pharmac y hepatitis A vaccine, adult dosage 3 2014 [id number] Other (OTH) complet ed hepatitis A vaccine, adult dosage DoD typhoid Vi capsular polysaccharid e vaccine 1 2014 J0513 101 Sanofi Pasteur ([facility]) complet ed typhoid Vi capsular polysacch aride vaccine DoD HEP A, ADULT 3 2014 52 complet ed hepatitis A vaccine, adult dosage Lot#: [id number] [facility] influenza, seasonal, injectable-pf 2013 [id number] 140 Unknown complet ed influenza , seasonal, injectabl e-pf 06/15/14 Given Ambulat ory Pharmac y influenza, seasonal, injectable-pf 2013 [id number] 140 Unknown complet ed influenza , seasonal, injectabl e-pf 06/15/14 Given Ambulat ory Pharmac y Influenza, seasonal, injectable, preservative free 1 2013 [id number] 140 Unknown (UNK) comple t ed Influenza , seasonal, injectabl e, preservat fiona free DoD hepatitis B adult vaccine 2013 [id number] 4AA 43 GlaxoSmithKli ne complet ed hepatitis B adult vaccine 10/26/13 Given Ambulat ory Pharmac y hepatitis B adult vaccine 2013 [id number] 4AA 43 GlaxoSmithKli ne complet ed hepatitis B adult vaccine 10/26/13 Given Ambulat ory Pharmac y hepatitis B vaccine, adult dosage 3 2013 [id number] 4AA 43 SmithKline (SKB) complet ed hepatitis B vaccine, adult dosage DoD HEP B, ADULT 3 2013 43 complet ed hepatitis B vaccine, adult dosage Lot#: [id number] [facility] influenza, seasonal, injectable-pf 2012 [id number] 140 Medimmune Inc comple t ed influenza , seasonal, injectabl e-pf 07/21/13 Given Ambulat ory Pharmac y Influenza, seasonal, injectable, preservative free 1 2012 [id number] 140 MedImmune, Inc. (MED) complet ed Influenza , seasonal, injectabl e, preservat fiona free DoD hepatitis A-hepatitis B vaccine 2011 [id number] 1AA 104 GlaxoSmithKli ne complet ed hepatitis A-hepatit is B vaccine 06/08/12 Given Ambulat ory Pharmac y influenza virus vaccine, live 2011 [id number] 111 Medimmune Inc comple t ed influenza virus vaccine, live 06/08/12 Given Ambulat ory Pharmac y influenza virus vaccine, live 2011 [id number] 111 Medimmune Inc comple t ed influenza virus vaccine, live 06/08/12 Given Ambulat ory Pharmac y hepatitis A-hepatitis B vaccine 2011 [id number] 1AA 104 GlaxoSmithKli ne complet ed hepatitis A-hepatit is B vaccine 06/08/12 Given Ambulat ory Pharmac y hepatitis A-hepatitis B vaccine 2011 [id number] 1AA 104 GlaxoSmithKli ne complet ed hepatitis A-hepatit is B vaccine 06/08/12 Given Ambulat ory Pharmac y hepatitis A and hepatitis B vaccine 2 2011 [id number] 1AA 104 SmithRivulet Communicationsine (SKB) complet ed hepatitis A and hepatitis B vaccine DoD influenza virus vaccine, live, attenuated, for intranasal use 1 2011 [id number] 111 [employer]. (MED) complet ed influenza virus vaccine, live, attenuate d, for intranasa l use DoD HEP A-HEP B 2011 104 complet ed hepatitis A-hepatit is B vaccine Lot#: [id number] Mfr: G[facility]XOSMIT [facility] adenovirus vaccine, live 2011 [id number] 9 143 Teva Pharmaceutica ls complet ed adenoviru s vaccine, live 04/06/12 Given Ambulat ory Pharmac y tetanus, diphtheria, acellular pertu is 2011 [id number] 5CA 115 GlaxoSmithKli ne complet ed tetanus, diphtheri a, acellular pertussis 04/06/12 Given Ambulat ory Pharmac y meningococcal A,C,Y,W-135 (MCV4P) 2011 [id number] 114 sanofi pasteur complet ed meningoco ccal [...] ory Pharmac y adenovirus vaccine, live 2011 [id number] 9 143 Teva Pharmaceutica ls complet ed adenoviru s vaccine, live 04/06/12 Given Ambulat ory Pharmac y hepatitis A-hepatitis B vaccine 2011 [id number] 4BA 104 GlaxoSmithKli ne complet ed hepatitis A-hepatit is B vaccine 04/06/12 Given Ambulat ory Pharmac y meningococcal A,C,Y,W-135 (MCV4P) 2011 [id number] 114 sanofi pasteur complet ed meningoco ccal A,C,Y,W-1 35 (MCV4P) 04/06/12 Given Ambulat ory Pharmac y tetanus, diphtheria, acellular pertu is 2011 [id number] 5CA 115 GlaxoSmithKli ne complet ed tetanus, diphtheri a, acellular pertussis 04/06/12 Given Ambulat ory Pharmac y hepatitis A-hepatitis B vaccine 2011 [id number] 4BA 104 GlaxoSmithKli ne complet ed hepatitis A-hepatit is B vaccine 04/06/12 Given Ambulat ory Pharmac y measles, mumps and rubella virus vaccine 1 2011 UNK 03 Unknown (UNK) Not Given measles, mumps and rubella virus vaccine DoD poliovirus vaccine, inactivated 1 2011 H1354 10 Sanofi Pasteur (PMC) complet ed polioviru s vaccine, inactivat ed DoD varicella virus vaccine 1 2011 UNK 21 Unknown (UNK) Not Given varicella virus vaccine DoD hepatitis A and hepatitis B vaccine 1 2011 AHABB24 4BA 104 Smithine (SKB) complet ed hepatitis A and hepatitis B vaccine DoD meningococcal polysaccharid e (groups A, C, Y and W-135) diphtheria toxoid conjugate vaccine (MCV4P) 1 2011 [id number] 114 Sanofi Pasteur (PMC) complet ed meningoco ccal polysacch aride (groups A, C, Y and W-135) diphtheri a toxoid conjugate vaccine (MCV4P) DoD tetanus toxoid, reduced diphtheria toxoid, and acellular pertu is vaccine, adsorbed 1 2011 [id number] 5CA 115 Smithine (SKB) complet ed tetanus toxoid, reduced diphtheri a toxoid, and acellular pertussis vaccine, adsorbed DoD Adenovirus, type 4 and type 7, live, oral 1 [id number] [place] [address] ([facility]) complet ed Adenoviru s, type 4 and type 7, live, oral DoD ADENOVIRUS TYPES 4 AND 7 1 2011 143 complet ed Adenoviru s, type 4 and type 7, live, oral Lot#: [id number] Mfr: SWANSON LABORATOR IES [facility]SN [place] [facility] [facility] HEP A-HEP B 2011 104 complet ed hepatitis A-hepatit is B vaccine Lot#: [id number] Mfr: GLAXOSMIT HKLINE [facility]SN [facility] MENINGOCOCCAL MCV4P 1 2011 114 complet ed meningoco ccal polysacch aride (groups A, C, Y and W-135) diphtheri a toxoid conjugate vaccine (MCV4P) Lot#: [id number] Mfr: SANOFI PASTEUR [facility] POLIO, UNSPECIFIED FORMULATION 2011 89 complet ed polioviru s vaccine, inactivat ed Lot#: [id number] Mfr: SANOFI PASTEUR [facility] tuberculin purified protein derivative 2011 [id number] 96 sanofi pasteur complet ed tuberculi n [...] Prevention' s HIV diagnostic algorithm. Refer to [facility] Lab Guide for additional information : [email or web address] x Testing performed [...] facility. Vital Sign Value Date Comments Source WEIGHT 187 02/01/2024 13:09:57 [facility] (631GE) BMI 33kg/m2 02/01/2024 13:09:57 [facility] (631GE) WEIGHT 188 01/25/2024 13:37:05 [facility] (631GE) BMI 33kg/m2 01/25/2024 13:37:05 [facility] (631GE) SYSTOLIC BLOOD PRESSURE 120 01/18/20 24 [...] [facility] PULSE 91 01/18/2024 14:56:33 [facility] RESPIRATION 16 01/18/2024 14:56:33 [facility] No data available for this section Ambulatory Pharm acy Encounters Combined list of: 1) Encounters from Department of Veterans Affairs facilities going back up to thelast 18 months. 2) Encounters from the Department of Defense facilities going back up to 280 months. Location Location Details Encounter Type Encounter Number Reason For Visit Attending Provider ADM Date DC Date Status Disposition Source [facility] RASHID Nye(IEP Optometry ) OUTPATIENT [id number] ALOK PALOMINOA 04/04 Released w/o Limitations [facility] RASHID Nye(IEP Optomet ry) [facility] RASHID Nye(IEP Hearing Conservat ion Exam) OUTPATIENT [id number] 618 ANDREAS CONNORMarni 04/05 Released w/o Limitations [facility] RASHID Nye(IEP Hearing Conserv ation Exam) [facility] RASHID Nye(IEP Soldiers Initial Entry) OUTPATIENT [id number] SABRANARESH HANCOCK 04/06 Released w/o Limitations [facility] RASHID Nye(IEP [place] Initial Entry) [facility] RASHID Nye(C-TMC Er Module) OUTPATIENT [id number] JAY LOPEZ 05/04 Released with Work/Duty Limitations [facility] RASHID Nye(C-TM C Er Module) [facility] RASHID Nye(IEP Soldiers Initial Entry) OUTPATIENT [id number] Notes Entered by: ROSALINA GREEN 08 Jun 2012 1333 ------- ------- ------- ------- -- D 3-10 ANURAG DAVIS 06/08 Released w/o Limitations [facility] RASHID Nye(IEP [place] Initial Entry[place] Bldg [address]) OUTPATIENT [id number] Notes Entered by: MARC VILLA 13 Jul 2015 1044 ------- ------- ------- ------- -- EILEEN Chester 07/13 Released w/o Limitations [place]([facility] [address]) Theater Facility OUTPATIENT [id number] Theater Provider 11/06 Released with Work/Duty Limitations Theater Facilit y Theater Facility OUTPATIENT [id number] Theater Provider 11/14 Immediate Referral Theater Facilit y Theater Facility OUTPATIENT [id number] Theater Provider 11/14 Released with Work/Duty Limitations Theater Facilit y Theater Facility OUTPATIENT [id number] Theater Provider 12/13 Released with Work/Duty Limitations Theater Facilit y [place] Hearing Conservat ion) OUTPATIENT [id number] Notes Entered by: Nigel GAFFNEY 24 Dec 2015 1024 ------- ------- ------- ------- -- PRE ROSEANNE GAFFNEY 12/23 Released w/o Limitations [place] Hearing Conserv ation) [place] [address]) OUTPATIENT [id number] Notes Entered by: NORMAN JAIN 24 Dec 2015 1102 ------- ------- ------- ------- -- TRAVIS MATHEWS 12/23 Released w/o Limitations [place]([facility] [address]) [place] [address]) OUTPATIENT [id number] Notes Entered by: DIETER HOFF 25 Dec 2015 0812 ------- ------- ------- ------- -- ANURAG DAVID AM 12/24 Released w/o Limitations [place] [address] [address]) [facility] Outpatient Encounter [id number] 06/18 [facility] [id number] AMDS Between Visit [id number] 10/24 Discharge Disposition: Home or Self Care 8344R-4 39 AMDS 8344R-439 AMDS Between Visit [id number] 10/24 Discharge Disposition: Home or Self Care 8344R-4 39 AMDS [facility] Outpatient Encounter [id number] [facility] (6[facility]GE) HC PRO PHONE CALL 11-20 MIN [id number] Diagnos is: ICD-10- CM Z59.811 Housing instabi lity, housed, with risk of homeles sness<b r/> [facility] A,ADALBERT O [facility] (631GE) 8344R-439 AMDS Between Visit [id number] 12/17 Discharge Disposition: Home or Self Care 8344R-4 39 AMDS [facility] Outpatient Encounter [id number] 12[facility]25 [facility] Outpatient Encounter [id number] 12/28 [facility] Outpatient Encounter [id number] 12/31 [facility] Outpatient Encounter [id number] 01/05 [facility] OFFICE O/P NEW [place] 60 MIN [id number] Diagnos is: ICD-10- CM G43.909 Migrain e, unsp, not intract able, without status migrain osus
ZACKERY SPENCER 01/17 [facility] En[facility] [id number] 01/17 [facility] Outpatient Encounter [id number] 01/31 [facility] (6[facility]GE) GROUP BEHAVE COUNS 2-10 [id number] Diagnos is: ICD-10- CM E66.09 Other obesity due to excess calorie s
Roxanne CAMPBELL 01/31 [facility] (631GE) [facility] Outpatient Encounter [id number] 02/01 [facility] En[facility] [id number] 02/05 [facility] Outpatient Encounter [id number] 04/08 [facility] Procedures Combined list of: 1) Procedures from Department of Veterans Affairs facilities going back up to thelast 18 months, not all VA non-surgical procedures are included; 2) All procedures from the Department of Defense facilities. Procedure Procedure Type Code Date Perfomer Comments [facility] e Audiometry Group Testing Audiometry Group Testing 23458 12/24/19 16 OLY GAGE [facility] OB Services Antepartum Care Only Subsequent Single Visit OB Services Antepartum Care Only Subsequent Single Visit 0502F 12/14/19 16 Theater Provider [facility] Ultrasound Obstetric Limited Evaluation Ultrasound Obstetric Limited Evaluation 24752 12/14/19 16 Theater Provider [facility] OB Services Antepartum Care Only First Visit, With Report OB Services Antepartum Care Only First Visit, With Report 0500F 11/14/19 16 Theater Provider [facility] Influenza Virus Vaccine Intranasal Live Attenuated 06/08/20 12 [facility] Immunization Admin By Intranasal / Oral Route One Vaccine Immunization Admin By Intranasal / Oral Route One Vaccine 96067 06/08/20 12 [facility] Physician Supervised Injection Intramuscular Physician Supervised Injection Intramuscular 64025 06/08/20 12 [facility] Immunization Administration By Injection, One Vaccine Immunization Administration By Injection, One Vaccine 55044 06/08/20 12 [facility] Immunization Administration By Injection, Each Additional Vaccine 06/08/20 12 [facility] Hepatitis A And Hepatitis B (Intramuscular Use) Adult Dosage Hepatitis A And Hepatitis B (Intramuscular Use) Adult Dosage 81145 06/08/20 12 [facility] Vaccines Adenovirus Type 7 Live, For Oral Use Vaccines Adenovirus Type 7 Live, For Oral Use 70483 04/06/20 12 [facility] Vaccines Adenovirus Type 4 Live, For Oral Use Vaccines Adenovirus Type 4 Live, For Oral Use 92561 04/06/20 12 [facility] Meningococcal (A, C, Y, W-135) Oligosacch Diphtheria Toxoid Conj Vacc 04/06/20 12 [facility] Vaccines Viral Polio, Inactivated Vaccines Viral Polio, Inactivated 84988 04/06/20 12 [facility] Tdap Vaccine Tdap Vaccine 00889 04/06/20 12 [facility] Immunization Administration By Injection, Each Additional Vaccine 04/06/20 12 [facility] Hepatitis A And Hepatitis B (Intramuscular Use) Adult Dosage Hepatitis A And Hepatitis B (Intramuscular Use) Adult Dosage [id number] 04/06/20 12 [facility] Physician Supervised Injection Intramuscular Physician Supervised Injection Intramuscular [id number] 04/06/20 12 [facility] Immunization Administration By Injection, One Vaccine Immunization Administration By Injection, One Vaccine [id number] 04/06/20 12 [facility] Physician Supervised Injection Intramuscular Antibiotic Physician Supervised Injection Intramuscular Antibiotic [id number] 04/06/20 12 [facility] Audiometry Group Testing Audiometry Group Testing [id number] 04/05/20 12 MICKIEGARIMAANDREAS [facility] Screening Test Of Visual Acuity, Quantitative, Bilateral Screening Test Of Visual Acuity, Quantitative, Bilateral [id number] 04/04/20 12 KAILEY PALOMINO [facility] IMMUNIZATION ADMINISTRATION BY INTRANASAL OR ORAL ROUTE; 1 VACCINE (SINGLE OR COMBINATION VACCINE/TOXOID) 06/08/20 12 [facility] MENINGOCOCCAL CONJUGATE VACCINE, SEROGROUPS A, C, W, Y, QUADRIVALENT, DIPHTHERIA TOXOID CARRIER (MENACWY-D) OR [id number] CARRIER (MENACWY-CRM), FOR INTRAMUSCULAR USE 04/06/20 12 [facility] AUDIOMETRIC TESTING OF GROUPS 04/05/20 12 [facility] SCREENING TEST OF VISUAL ACUITY, QUANTITATIVE, BILATERAL 04/04/20 12 [facility] AUDIOMETRIC TESTING OF GROUPS 12/24/19 16 [facility] ANTHRAX VACCINE, FOR SUBCUTANEOUS OR INTRAMUSCULAR USE 08/11/20 15 [facility] ANTHRAX VACCINE, FOR SUBCUTANEOUS OR INTRAMUSCULAR USE 07/13/20 15 [facility] No data available for this section [facility]acy Social History Combined list of available smoking, tobacco, and other social history from [facility] facilities. Social History Type Response Date Comment [facility] e Tobacco smoking status NHIS VA-TOBACCO NEVER USED 01/06/2024 [facility] [place] [facility] This section is an empty social history section. [employer] Assessment and Plan Combined list of future care activities from [facility] and [facility] facilities (e.g., assessment and plan notes, appointments, orders, and referrals). Additional future care activities may be listed in the Plan of Care section. Result Assessment and Plan Date Source Assessment and Plan No data available for this section 10/18/2024 [facility] Functional Status Combined list of recent functional and cognitive assessments recorded at [facility] Functional [place] Measurement (FIM) Scale: 1 = Total Assistance (Subject = 0% +), 2 = Maximal Assistance (Subject = 25% +), 3 = Moderate Assistance (Subject = 50% +), 4 = Minimal Assistance (Subject = 75% +), 5 = Supervision, 6 = Modified [place] (Device), 7 = Complete [place] (Timely, Safely). Assessment Date/Time Source Assessment Type Assessment Skill Assessment Score Assessment Details No data available for this section
== END 2024-10-18 09:49 | disposition home or self-care (01) ==
LOC: HO.LAB 09:48
PROVIDERS: PCP Physician Assistant; Visit Provider Internal Medicine Endocrinology, Diabetes & Metabolism
DX: D35.2 Benign neoplasm of pituitary gland (principal)
CPT/HCPCS: 36415; 84146